=== PATIENT | female | born 2000 | race Caucasian/White ===

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

== ENCOUNTER 2019-07-20 00:40 | Emergency (ER) | payer MEDICAID, SELFPAY ==
[2019-07-20 00:42] VITALS: BP 124/69; PULSE 63; RESP 18; TEMP 36.1; O2SAT 97; BMI 35.3
[2019-07-20 01:14] LABS: Mucous, Urine 0 SEEN /hpf (<or=2+); Red Blood Cells-Urine 0 SEEN /hpf (0-5)
[2019-07-20 01:18] LABS: Color, Urine Yellow (Yellow); Glucose, Dipstick Normal (Normal); Ketone-Dipstick Negative (Negative); Leukocyte Esterase-Dipstick 500 /ul (Negative); Nitrite-Dipstick Negative (Negative); Occult Blood-Urine Negative /ul (Negative); Protein-Dipstick Negative (Negative); Urine Bilirubin Dipstick Negative (Negative); Urine Clarity Sl. Cloudy (Clear); Urine Urobilinogen Normal (Normal); Urine pH 6.5 (5.0 - 8.0)
[2019-07-20 01:22] LABS: Internal QC Validated? YES +Cl - CLEAR BKGD; Pregnancy, Urine Positive Negative
[2019-07-20 01:29] LABS: Bacteria RARE /hpf (None Seen); Squamous Epithelial Cells - UA 10-25 SEEN /hpf (5-10); White Blood Cells 0-5 SEEN /hpf (0-5)
--- NOTE | 2019-07-20 01:34 | ED.VIS.GEN ---
History of Present Illness Chief Complaint: Abd Pain Informant: Patient Onset: Today Context: Sudden Onset Timing: Continuous Narrative: She is a 19-year-old female G1, P0 presenting with right upper quadrant abdominal pain. Patient states earlier today she excellently hit herself with a doorknob in her right upper quadrant. Since then she is had pain in that area. Patient recently found out she was a couple days ago through a positive home test. She does not have an ENVIRONMENTAL PROJECT MANAGER yet. She states she wanted to be evaluated further for the pain was also concerned about the viability of her . She denies any lower abdominal pain. She denies any vaginal bleeding. She denies any vomiting but does endorse nausea however that been going on for the past 2 weeks. She denies any other complaints at this time. Past Medical History - Allergies and Home Meds Allergies/Adverse Reactions: Allergies morphine Allergy (Verified 07/20/19 00:47) Rash ibuprofen Adverse Reaction (Verified 07/20/19 00:47) Nausea/Vom/Diarrhea Primary Care Physician: Courtney Belle MD [STAFF PHYSICIAN] - Caty Cardona DO [Primary Care Provider] - Past Medical History: None Surgical History: tonsillectomy Lives: With Family Smoking Status: Current every day smoker - Family History Maternal Family History: Reports: Cancer - Kidney cancer Review of Systems All systems negative except as indicated Gastrointestinal: Reports: Abdominal pain, Nausea Physical Exam Vital Signs/Narrative: Vital Signs Temp Pulse Resp BP Pulse Ox 07/20/19 00:42 97 F L 63 18 124/69 H 97 Inital Vital Signs reviewed: Yes General: Well nourished, Well developed, No Acute Distress Head: Normocephalic, Atraumatic Eyes: Perrl, EOMI ENT: Moist mucous membranes, No rhinorrhea Neck: Supple, Nontender Cardiovascular: Regular rate, Regular rhythm, No murmurs Respiratory: No distress, CTA bilaterally, Chest nontender Abdomen: Soft, Nondistended, Normal bowel sounds, Tender - Mild, right upper quadrant, - - No palpable uterus. Negative for: Guarding, Rebound tenderness Back: Nontender, Normal Inspection. Negative for: CVA tenderness Extremities: Nontender, No edema Skin: Normal color, No rash Neurological: Alert, Oriented x3, Cranial nerves II-XII grossly intact, Normal Strength, Normal Sensation Psychological: Normal affect, Normal Mood Diagnostic/Tx/Re-eval Laboratory Data 07/20/19 07/20/19 07/20/19 01:10 01:10 01:40 WBC 11.2 H RBC 4.15 L Hgb 12.7 Hct 37.3 MCV 89.9 MCH 30.6 MCHC 34.0 RDW Std Deviation 43.4 RDW Coeff of Melanie 13.2 Plt Count 320 MPV 9.3 Immature Gran % (Auto) 0.400 Neut % (Auto) 59.9 Lymph % (Auto) 32.8 [place] % (Auto) 5.0 Eos % (Auto) 1.3 Baso % (Auto) 0.6 Absolute Neuts (auto) 6.7 Absolute Lymphs (auto) 3.66 Nucleated RBC % 0 Sodium Potassium Chloride Carbon Dioxide Anion Gap BUN Creatinine Estim Creat Clear Calc Est GFR (MDRD) Af Amer Est GFR (MDRD) Non-Af BUN/Creatinine Ratio Glucose Calcium Total Bilirubin AST ALT Alkaline Phosphatase Total Protein Albumin Globulin Albumin/Globulin Ratio Lipase Urine Color Yellow Urine Clarity Sl. Cloudy Urine pH 6.5 Ur Specific [place] 1.030 Urine Protein Negative Urine Glucose (UA) Normal Urine Ketones Negative Urine Occult Blood Negative Urine Nitrite Negative Urine Bilirubin Negative Urine Urobilinogen Normal Ur Leukocyte Esterase 500 H Urine RBC 0 SEEN Urine WBC 0-5 SEEN Ur Squamous Epith Cells 10-25 SEEN Urine Bacteria RARE Urine Mucus 0 SEEN Urine Test Positive H 07/20/19 01:40 WBC RBC Hgb Hct MCV MCH MCHC RDW Std Deviation RDW Coeff of Melanie Plt Count MPV Immature Gran % (Auto) Neut % (Auto) Lymph % (Auto) [place] % (Auto) Eos % (Auto) Baso % (Auto) Absolute Neuts (auto) Absolute Lymphs (auto) Nucleated RBC % Sodium 137 Potassium 3.9 Chloride 109 H Carbon Dioxide 20.0 L Anion Gap 8 BUN 10 Creatinine 0.50 L Estim Creat Clear Calc 168.02 Est GFR (MDRD) Af Amer 201 Est GFR (MDRD) Non-Af 166 BUN/Creatinine Ratio 19.9 Glucose 89 Calcium 8.6 Total Bilirubin 0.20 AST 15 ALT 19 Alkaline Phosphatase 53 Total Protein 6.7 Albumin 3.2 Globulin 3.5 Albumin/Globulin Ratio 0.9 Lipase 67 L Urine Color Urine Clarity Urine pH Ur Specific [place] Urine Protein Urine Glucose (UA) Urine Ketones Urine Occult Blood Urine Nitrite Urine Bilirubin Urine Urobilinogen Ur Leukocyte Esterase Urine RBC Urine WBC Ur Squamous Epith Cells Urine Bacteria Urine Mucus Urine Test - Medical Decision Making She is evaluated for right upper quadrant pain after hitting her abdomen on the door handle earlier today. She did not have any pain before this episode. She is concerned because she is also newly . Patient does not hope for a long she has but states her last menstrual. Was 2 months ago. Patient does not have any suprapubic or lower abdomen tenderness. I think it highly likely that she could have sustained any significant injury to her uterus from the described mechanism. The pain is not affected by eating and appears to be more muscle skeletal. There is no overlying hematoma or bruising. She does not have any vomiting or severe pain and I do not suspect hollow viscus injury. Lab work is relatively unremarkable. Patient's urine does have 500 leuk esterase however only rare bacteria and only minimal white blood cells. Urine culture sent but as patient is otherwise asymptomatic for urinary symptoms I will not start her on antibiotics at this time. Bedside ultrasound performed which shows a single intrauterine gestation with no free fluid. Heartbeat is noted but not measured. Dahlgren-rump length outputs estimated gestational age at 8 weeks 0 days which is consistent with patient's dates. Patient will be prescribed vitamins. She is instructed take Tylenol as needed for pain. She is given a dose of Tylenol in the emergency room. She will be referred to ENVIRONMENTAL PROJECT MANAGER for further follow-up. She is counseled on signs symptoms requiring return to emergency room. She is counseled to stop smoking as she is and limit her caffeine intake. Patient is counseled on signs and symptoms requiring return to the emergency room. Patient verbalizes agreement and understand this plan. Patient discharged home in stable and improved condition. ED Disposition - Plan for ED Patient: Disposition: Home or Assisted Living Diagnosis: RUQ abdominal pain, Instructions: : Your First Trimester Changes, ABDOMINAL PAIN, Unknown Cause, (Female) Prescriptions: Pnv No.121/Iron/Folic Acid [ Multivitamin Tablet] 1 ea PO DAILY #30 tab Prescription Printed Referrals: Caty Cardona DO [Primary Care Provider] - Courtney Belle MD [STAFF PHYSICIAN] - Additional Instructions: Take Tylenol as needed for pain. Please follow-up with an ENVIRONMENTAL PROJECT MANAGER to establish care. Drink plenty of fluids. Return the emergency room if you have worsening symptoms.
[2019-07-20] MEDS: Acetaminophen 500 MG Tablet 1000 MG PO (01:42)
[2019-07-20 01:43] LABS: Absolute Lymphocyte Count 3.66 X10^3/uL (0.83-4.51); Absolute Neutrophil Count 6.7 X10^3/uL (2.0-7.7); Basophil# 0.07 X10^3/uL; Basophil% 0.6 % (0-1); Eosinophil# 0.15 X10^3/uL; Eosinophils% 1.3 % (0-5); Hematocrit 37.3 % (37-47); Hemoglobin 12.7 g/dL (12.0-15.0); Lymphocyte # 3.66 X10^3/ul (4.0); Lymphocyte % 32.8 % (19-41); Mean Corpuscular Hgb 30.6 pg (27.0-32.0); Mean Corpuscular Volume 89.9 fL (81-99); Mean Platelet Vol. 9.3 fl (6.2-12.0); Monocyte# 0.56 X10^3/uL; NRBC Flagged by Analyzer 0 % (0-5); Neutrophil # 6.66 X10^3/uL (2.7-7.7); Neutrophil % 59.9 % (47-70); Platelet Count 320 K/mm3 (150-450); RBC Distribution Width CV 13.2 % (11.6-14.6); RBC Distribution Width SD 43.4 fl (35.1-43.9); Red Blood Count 4.15 M/mm3 (4.2-5.4); White Blood Count 11.2 K/mm3 (4.4-11.0)
[2019-07-20 02:01] LABS: ALB/GLOB Ratio 0.9 RATIO (0.9-2.4); AST(SGOT) 15 U/L (15-37); Alanine Aminotransfer ALT/SGPT 19 U/L (13-56); Albumin, Serum 3.2 g/dL (3.2-5.0); Alkaline Phosphatase 53 U/L (45-117); Anion Gap 8 (5-15); BUN 10 mg/dL (7-18); BUN/Creat Ratio 19.9 RATIO (10-20); Calcium,Total 8.6 mg/dL (8.5-10.1); Chloride 109 mmol/L (98-107); EST Glomerular Filtration Rate 166 mL/min (>60); Est Glom Filt Rate - Afr Amer 201 mL/min (>60); Estimated Creatinine Clearance 168.02 ml/min; Globulin 3.5 g/dL (2.2-4.2); Glucose 89 mg/dL (74-106); Lipase 67 U/L (73-393); Potassium 3.9 mmol/L (3.5-5.1); Protein, Total 6.7 g/dL (6.4-8.2); Sodium Level 137 mmol/L (136-145)
[2019-07-20 03:21] VITALS: BP 119/81; PULSE 81; RESP 16; O2SAT 100
== END 2019-07-20 03:22 | disposition home or self-care (01) ==
PROVIDERS: Emergency Provider Emergency Medicine; Family Provider Family Medicine; PCP Family Medicine
DX: O26.899 Other specified pregnancy related conditions, unspecified trimester (principal); R10.11 Right upper quadrant pain; O99.331 Smoking (tobacco) complicating pregnancy, first trimester; Z3A.08 8 weeks gestation of pregnancy
CPT/HCPCS: 80053; 81001; 81025; 83690; 85025; 87086; 87088; 99285; A4216

== ENCOUNTER 2019-09-25 21:10 | Emergency (ER) | payer MEDICAID, SELFPAY ==
[2019-09-25 21:11] VITALS: BP 122/80; PULSE 75; RESP 23; TEMP 36.9; O2SAT 97; BMI 34.4
[2019-09-25 21:24] VITALS: BP 112/70; PULSE 67; RESP 15; O2SAT 95
--- NOTE | 2019-09-25 21:31 | EKG12_ITS ---
Test Reason : SYNCOPE Blood Pressure : / mmHG Vent. Rate : 069 BPM Atrial Rate : 069 BPM P-R Int : 154 ms QRS Dur : 084 ms QT Int : 368 ms P-R-T Axes : 021 043 023 degrees QTc Int : 394 ms Normal sinus rhythm with sinus arrhythmia Normal ECG Confirmed by FRANCISCO DORADO, JAS ([id number]), editor & co founder CHASTITY JOHNSON ([id number]) on 09/27/2019 10:07:02 AM Referred By: CRYSTAL Confirmed By:JAS SINGH MD
--- NOTE | 2019-09-25 21:32 | ED.DCSUM_ITS ---
History of Present Illness Chief Complaint: Syncope Informant: Patient, Family Onset: Today Narrative: Patient brought by EMS from [facility] with significant other reported syncopal episode while walking. Prodromal lightheaded symptoms. Patient 18-week , G1, P0. [facility] Last seen 5 days ago. States has a mild cough, nonproductive, no dyspnea. No vomiting or diarrhea. No urinary symptoms. Denies any vaginal bleeding. Denies any abdominal injury or pain. States she was lower down by her significant other. Reports had a syncopal episodes when she was younger. Patient does admit to tobacco history. Denies any alcohol or any illicit drug use. Prior similar symptoms: Yes Past Medical History - Allergies and Home Meds Allergies/Adverse Reactions: Allergies morphine Allergy (Verified 09/25/19 21:11) Rash ibuprofen Adverse Reaction (Verified 09/25/19 21:11) Nausea/Vom/Diarrhea Primary Care Physician: Care Physician,No Primary [Primary Care Provider] - Surgical History: tonsillectomy Smoking Status: Current every day smoker - Family History Maternal Family History: Reports: Cancer - Kidney cancer Review of Systems General: Denies: Chills, Fever, Sweats Eyes: Denies: Visual changes - bilaterally, Diplopia ENT: Denies: Rhinorrhea, Sore throat Cardiovascular: Denies: Chest pain, Palpitations Respiratory: Reports: Cough. Denies: Dyspnea, Dyspnea on exertion Gastrointestinal: Denies: Abdominal pain, Nausea, Vomiting, Diarrhea, Melena, Hematochezia Genitourinary: Denies: Dysuria, Hematuria, Frequency Musculoskeletal: Denies: Back pain, Extremity Pain Skin: Denies: Rash, Wounds Neurological: Denies: Headache, Weakness, Numbness Physical Exam Vital Signs/Narrative: Vital Signs Temp Pulse Resp BP Pulse Ox 09/25/19 21:24 67 15 112/70 95 09/25/19 21:11 98.4 F 75 23 H 122/80 H 97 Inital Vital Signs reviewed: Yes General: Well nourished, Well developed, No Acute Distress Head: Normocephalic, Atraumatic Eyes: Perrl, EOMI ENT: Moist mucous membranes, No rhinorrhea Neck: Supple, Nontender Cardiovascular: Regular rate, Regular rhythm, No murmurs Respiratory: No distress, CTA bilaterally, Chest nontender Abdomen: Soft, Nontender, Nondistended, Normal bowel sounds Back: Nontender, Normal Inspection Extremities: Nontender, No edema Skin: Normal color, No rash Neurological: Alert, Oriented x3, Cranial nerves II-XII grossly intact, Normal Strength, Normal Sensation Psychological: Normal affect, Normal Mood Diagnostic/Tx/Re-eval Abnormal Lab Results 09/25/19 09/25/19 09/25/19 21:48 21:48 21:55 WBC 13.2 H RBC 3.80 L Hgb 11.5 L Hct 34.7 L MCV 91.3 MCH 30.3 MCHC 33.1 RDW Std Deviation 44.0 H RDW Coeff of Melanie 13.2 Plt Count 294 MPV 9.5 Immature Gran % (Auto) 0.600 Neut % (Auto) 71.1 H Lymph % (Auto) 23.1 [place] % (Auto) 3.8 Eos % (Auto) 1.1 Baso % (Auto) 0.3 Absolute Neuts (auto) 9.4 H Absolute Lymphs (auto) 3.06 Nucleated RBC % 0 Sodium 140 Potassium 3.9 Chloride 110 H Carbon Dioxide 24.0 Anion Gap 6 BUN 9 Creatinine 0.46 L Estim Creat Clear Calc 182.63 Est GFR (MDRD) Af Amer 223 Est GFR (MDRD) Non-Af 184 BUN/Creatinine Ratio 19.7 Glucose 89 Calcium 8.9 Urine Color Yellow Urine Clarity Cloudy Urine pH 6.0 Ur Specific [place] 1.025 Urine Protein 30 H Urine Glucose (UA) Normal Urine Ketones 5 H Urine Occult Blood Negative Urine Nitrite Negative Urine Bilirubin Negative Urine Urobilinogen Normal Ur Leukocyte Esterase 500 H Urine RBC 0 SEEN Urine WBC 5-10 SEEN Ur Squamous Epith Cells 5-10 SEEN Urine Bacteria 3+ Hyaline Casts 0-5 SEEN Coarse Granular Casts 0-5 SEEN Urine Mucus 0 SEEN - Medical Decision Making Bedside ultrasound noted significant movement. heart tone 150. Patient with no focal neurologic deficits. EKG sinus rhythm with no acute changes. Labs are obtained normal hemoglobin, electrolytes are normal. Urine noted leukocytes, white cells and bacteria however did note mild squamous cells. Culture sent, patient , therefore started on Macrobid for 5 days. She ambulating department with no return of symptoms. Also discussed tobacco cessation with the patient. Signs and symptom discussed return otherwise follow-up as an outpatient with her physicians. All questions answered. ED Disposition - Plan for ED Patient: Disposition: Home or Assisted Living Diagnosis: Syncope, Second trimester , UTI in Instructions: SYNCOPE, Unk Cause, Understanding Urinary Tract Infections (UTIs), Quitting Smoking During Prescriptions: Nitrofurantoin Macrocrystals [Macrobid] 100 mg PO Q12 #9 cap Transmission Status: Pending to [facility] [facility] Referrals: Care Physician,No Primary [Primary Care Provider] - Additional Instructions: Follow up with your doctor. FHT 150.
--- NOTE | 2019-09-25 21:41 | ED.RN ---
NO OLD EKGS IN MUSE
[2019-09-25 21:55] LABS: Absolute Lymphocyte Count 3.06 X10^3/uL (0.83-4.51); Absolute Neutrophil Count 9.4 X10^3/uL (2.0-7.7); Basophil# 0.04 X10^3/uL; Basophil% 0.3 % (0-1); Eosinophil# 0.15 X10^3/uL; Eosinophils% 1.1 % (0-5); Hematocrit 34.7 % (37-47); Hemoglobin 11.5 g/dL (12.0-15.0); Lymphocyte # 3.06 X10^3/ul (4.0); Lymphocyte % 23.1 % (19-41); Mean Corp Hgb Conc 33.1 g/dL (32-36); Mean Corpuscular Hgb 30.3 pg (27.0-32.0); Mean Corpuscular Volume 91.3 fL (81-99); Mean Platelet Vol. 9.5 fl (6.2-12.0); Monocyte% 3.8 % (0-10); NRBC Flagged by Analyzer 0 % (0-5); Neutrophil # 9.41 X10^3/uL (2.7-7.7); Neutrophil % 71.1 % (47-70); Platelet Count 294 K/mm3 (150-450); RBC Distribution Width CV 13.2 % (11.6-14.6); White Blood Count 13.2 K/mm3 (4.4-11.0)
[2019-09-25 22:00] LABS: Color, Urine Yellow (Yellow); Glucose, Dipstick Normal (Normal); Ketone-Dipstick 5 mg/dl (Negative); Leukocyte Esterase-Dipstick 500 /ul (Negative); Mucous, Urine 0 SEEN /hpf (<or=2+); Nitrite-Dipstick Negative (Negative); Occult Blood-Urine Negative /ul (Negative); Protein-Dipstick 30 mg/dl (Negative); Red Blood Cells-Urine 0 SEEN /hpf (0-5); Specific Gravity, Urine 1.025 (1.002-1.030); Urine Bilirubin Dipstick Negative (Negative); Urine Clarity Cloudy (Clear); Urine Urobilinogen Normal (Normal)
[2019-09-25 22:07] LABS: Anion Gap 6 (5-15); BUN 9 mg/dL (7-18); BUN/Creat Ratio 19.7 RATIO (10-20); Calcium,Total 8.9 mg/dL (8.5-10.1); Chloride 110 mmol/L (98-107); Creatinine, Serum 0.46 mg/dL (0.55-1.02); EST Glomerular Filtration Rate 184 mL/min (>60); Est Glom Filt Rate - Afr Amer 223 mL/min (>60); Estimated Creatinine Clearance 182.63 ml/min; Glucose 89 mg/dL (74-106); Potassium 3.9 mmol/L (3.5-5.1); Sodium Level 140 mmol/L (136-145)
[2019-09-25 22:13] LABS: Coarse Granular Cast 0-5 SEEN /lpf (0-5 /lpf)
[2019-09-25 22:14] LABS: Hyaline Cast 0-5 SEEN /lpf (0-5)
[2019-09-25 22:18] LABS: Squamous Epithelial Cells - UA 5-10 SEEN /hpf (5-10)
[2019-09-25 22:22] LABS: White Blood Cells 5-10 SEEN /hpf (0-5)
[2019-09-25 22:26] LABS: Bacteria 3+ /hpf (None Seen)
[2019-09-25] MEDS: Nitrofurantoin Macrocrystals 100 MG Capsule PO (22:51)
[2019-09-25 22:53] VITALS: RESP 16
== END 2019-09-25 22:54 | disposition home or self-care (01) ==
PROVIDERS: Emergency Provider Emergency Medicine
DX: O26.892 Other specified pregnancy related conditions, second trimester (principal); R55 Syncope and collapse; R05 Cough; O23.42 Unspecified infection of urinary tract in pregnancy, second trimester; O99.332 Smoking (tobacco) complicating pregnancy, second trimester; F17.200 Nicotine dependence, unspecified, uncomplicated; Z3A.18 18 weeks gestation of pregnancy
CPT/HCPCS: 80048; 81001; 85025; 87086; 87088; 93005; 99285

== ENCOUNTER 2019-11-15 22:15 | Emergency (ER) | payer MEDICAID, SELFPAY ==
[2019-11-15 22:16] VITALS: BP 123/73; PULSE 87; RESP 15; TEMP 35.9; O2SAT 97; BMI 36.3
--- NOTE | 2019-11-15 22:33 | ED.VIS.GEN ---
History of Present Illness Chief Complaint: Dental Informant: Patient Onset: Yesterday Current Severity: Mild Maximum Severity: Moderate Narrative: Patient presents with left-sided dental pain that started last evening. She does not know of any broken tooth. She states the left side of her face was swollen pretty large. She slept most the day today and swelling seems to be improved currently. She does report having foul taste in her mouth like pus draining. Patient is currently 25 weeks . Past Medical History - Allergies and Home Meds Allergies/Adverse Reactions: Allergies morphine Allergy (Verified 11/15/19 22:15) Rash ibuprofen Adverse Reaction (Verified 11/15/19 22:15) Nausea/Vom/Diarrhea Primary Care Physician: Care Physician,No Primary [Primary Care Provider] - Past Medical History: None Surgical History: tonsillectomy Smoking Status: Current every day smoker - Family History Maternal Family History: Reports: Cancer - Kidney cancer Review of Systems General: Denies: Chills, Fever Eyes: Denies: Visual changes - bilaterally ENT: Reports: - - Left-sided dental pain. Denies: Bilateral ear pain Cardiovascular: Denies: Chest pain Respiratory: Denies: Dyspnea Gastrointestinal: Denies: Abdominal pain, Nausea, Vomiting, Diarrhea Genitourinary: Denies: Dysuria Musculoskeletal: Denies: Extremity Pain Skin: Denies: Rash Neurological: Denies: Headache Physical Exam Vital Signs/Narrative: Vital Signs Temp Pulse Resp BP Pulse Ox 11/15/19 22:16 96.6 F L 87 15 123/73 H 97 Inital Vital Signs reviewed: Yes General: Well nourished, Well developed Head: Normocephalic ENT: Moist mucous membranes, - - Patient has reproducible tenderness over the molars of the left mandibular surface. No surrounding gum edema. She does have tenderness over the parotid gland but no focal tenderness. There is no submandibular fullness. Posterior pharynx exam is normal. Neck: Supple Cardiovascular: Regular rate, Regular rhythm Respiratory: No distress, CTA bilaterally Abdomen: Soft, Nontender Extremities: Nontender Skin: Normal color Neurological: Alert, Oriented x3 Psychological: Normal affect Diagnostic/Tx/Re-eval - Medical Decision Making Patient be treated with Tylenol and Pen-Vee K. Prescription for Vantin VK will be given to her. She is given a dental referral list. ED Disposition - Plan for ED Patient: Disposition: Home or Assisted Living Diagnosis: Odontalgia Instructions: Dental Pain Prescriptions: Penicillin V Potassium 500 mg PO 4X/DAY #40 tablet Additional Instructions: Dental list provided
[2019-11-15] MEDS: Penicillin Vk 250 MG Tablet 500 MG PO (23:00)
[2019-11-15] MEDS: Acetaminophen 500 MG Tablet 1000 MG PO (23:00)
== END 2019-11-15 23:04 | disposition home or self-care (01) ==
LOC: ED 22:52
PROVIDERS: Emergency Provider Emergency Medicine
DX: K08.89 Other specified disorders of teeth and supporting structures (principal); O99.332 Smoking (tobacco) complicating pregnancy, second trimester; Z3A.25 25 weeks gestation of pregnancy
CPT/HCPCS: 99283

== ENCOUNTER 2020-01-24 00:17 | Outpatient (CLI) | payer MEDICAID, SELFPAY ==
[2020-01-24 00:33] VITALS: BP 137/67; PULSE 95; TEMP 36.9; O2SAT 99
[2020-01-24 00:59] VITALS: BMI 37.5
--- NOTE | 2020-01-24 10:32 | OB.TRI.NOTE ---
History of Present Illness Was patient seen by the physician?: No Reason For Visit: R/O LABOR Date of Service: 01/24/20 Final SCAR: 02/25/20 Gestational age: 35 Weeks and 3 Days History of Present Illness: Patient presented & reports vaginal bleeding at home to RN. She reported intercourse about 24 hours prior. Allergies morphine Allergy (Verified 11/15/19 22:15) Rash ibuprofen Adverse Reaction (Verified 11/15/19 22:15) Nausea/Vom/Diarrhea Physical Exam Vitals: Vital Signs Temp Pulse BP Pulse Ox 98.5 F 95 137/67 H 99 01/24/20 00:33 01/24/20 00:33 01/24/20 00:33 01/24/20 00:33 NST - FHR Rate Baby A Baseline: 120 Variability:: Moderate Accelerations:: 15 x 15 Decelerations:: Variable NST Reactive:: Yes Uterine Activity:: quiet Impression/Plan Reactive NST for threatened PTL RN checked patient & reported no blood on glove & cervix was closed
== END 2020-01-24 01:26 | disposition home or self-care (01) ==
LOC: WPOUT 00:20 → OBT 00:20
PROVIDERS: Visit Provider Obstetrics & Gynecology
DX: O20.0 Threatened abortion (principal); Z3A.35 35 weeks gestation of pregnancy
CPT/HCPCS: 59025; 59050; 99218; G0378

== ENCOUNTER 2020-03-01 18:50 | Inpatient (IN) | payer MEDICAID, SELFPAY ==
[2020-03-01 19:41] VITALS: BMI 38.7
[2020-03-01] MEDS: Lactated Ringers 1,000 ML 50 ML IV (20:00)
[2020-03-01 20:14] VITALS: BP 125/75; PULSE 86
[2020-03-01 20:24] LABS: Basophil# 0.04 X10^3/uL; Basophil% 0.4 % (0-1); Eosinophil# 0.05 X10^3/uL; Eosinophils% 0.4 % (0-5); Hematocrit 33.5 % (37-47); Hemoglobin 10.9 g/dL (12.0-15.0); Lymphocyte % 23.6 % (19-41); Mean Corp Hgb Conc 32.5 g/dL (32-36); Mean Corpuscular Hgb 30.4 pg (27.0-32.0); Mean Corpuscular Volume 93.6 fL (81-99); Mean Platelet Vol. 9.8 fl (6.2-12.0); Monocyte# 0.57 X10^3/uL; NRBC Flagged by Analyzer 0 % (0-5); Neutrophil # 7.96 X10^3/uL (2.7-7.7); Neutrophil % 69.7 % (47-70); Platelet Count 389 K/mm3 (150-450); RBC Distribution Width CV 14.4 % (11.6-14.6); RBC Distribution Width SD 48.2 fl (35.1-43.9); Red Blood Count 3.58 M/mm3 (4.2-5.4); White Blood Count 11.4 K/mm3 (4.4-11.0)
[2020-03-01] MEDS: miSOPROStol 25 MCG TABLET PO (20:47)
[2020-03-01] MEDS: 0.9% Normal Saline Single 100 ML IV.SOLN. IY (20:49)
[2020-03-01 21:04] VITALS: BP 135/75; PULSE 97; TEMP 36.4; O2SAT 97
--- NOTE | 2020-03-01 21:18 | HP.PCM_ITS ---
- Problem List (1) Encounter for induction of labor Status: Acute (2) Obesity affecting Status: Acute (3) Marijuana use Status: Acute (4) Bipolar disease during Status: Acute (5) Tobacco use complicating Status: Acute History Date of Admission: 05/16/16 Final SCAR: 02/25/20 Gestational age: 40 Weeks and 5 Days History of this : This is a 19 year-old, G [1], P [0], at 40w5d gestational age for postdates ind uction of labor. complicated by history of marijuana use, that stopped after initial OB visit. Tobacco use in . Allergies morphine Allergy (Verified 03/01/20 19:42) Rash ibuprofen Adverse Reaction (Verified 03/01/20 19:42) Nausea/Vom/Diarrhea Home Medications: Home Medications Pnv No.121/Iron/Folic Acid [ Multivitamin Tablet] 1 ea PO DAILY #30 tab 07/20/19 Doxylamine Succinate [Nighttime Sleep-Aid] 25 mg PO QHS 01/24/20 Pyridoxine HCl (Vitamin B6) [Vitamin B-6] 25 mg PO DAILY 01/24/20 Smoking Status: Current every day smoker Alcohol: None Substance Use Type: Marijuana - beginning of , no further use Number of Fetus(es): 1 NST - FHR Rate Baby A Baseline: 135 Variability:: Moderate Accelerations:: 15 x 15 Decelerations:: None NST Reactive:: Yes FHR Category:: Category I Uterine Activity:: None History Past Pregnancies: Past Pregnancies Delivery Date Name GA/ Weeks Outcome Route Wt Infant Sex Labor Length Anesthesia Delivery Location Provider FOB Labs: Mom's Problem List Problem Status Onset Code Encounter for induction of labor Acute Z34.90 Obesity affecting Acute O99.210 Marijuana use Acute F12.90 Bipolar disease during Acute O99.340, F31.9 Tobacco use complicating Acute O99.330 Mom's Labs & Results 03/01/20 03/01/20 03/01/20 19:55 20:00 20:00 WBC 11.4 H RBC 3.58 L Hgb 10.9 L Hct 33.5 L MCV 93.6 MCH 30.4 MCHC 32.5 RDW Std Deviation 48.2 H RDW Coeff of Melanie 14.4 Plt Count 389 MPV 9.8 Immature Gran % (Auto) 0.900 Neut % (Auto) 69.7 Lymph % (Auto) 23.6 [place] % (Auto) 5.0 Eos % (Auto) 0.4 Baso % (Auto) 0.4 Absolute Neuts (auto) 8.0 H Absolute Lymphs (auto) 2.70 Nucleated RBC % 0 COVID-19 ([facility]) Pending Blood Type Pending Antibody Screen Pending Course Did the patient receive Yes care? Labs Blood Type: A RH: POSITIVE RPR/VDRL/Syphilis Nonreactive Rubella status Immune HbSAg Negative Date Done: 08/04/19 Chlamydia Negative Gonorrhea Negative HIV/AIDS Non-Reactive Group B Strep: Negative Current Obstetrical History Gestational Diabetes No Incompetent Cervix No Infertility No IUGR No Macrosomia No Hypertension/Pre-eclampsia No Placenta Previa/Abruption No PTL/PROM No Uterine anomaly No Oligohydramnios No Polyhydramnios No Multiple gestation No Past Medical History Asthma No Diabetes No Hypertension No Heart disease No Mitral valve prolapse No Neurologic/Seizure disorder/ No Migraines Kidney disease No Liver disease No Varicosities No Clotting disorders/Hx of DVT No Thyroid Dysfunction No Other medical diseases No Psychiatric disorders Yes: anxiety Major trauma No Abnormal PAP smear No Sleep apnea No Mammogram in the last 2 years No Social History Marital Status: SINGLE Alleged father Brad Hx Smoking Yes Smoking Status Light Smoker (<10/day) Substance Use Type Marijuana What date/time did you last Novemeber use any of the above? Expected Delivery Method: Spontaneous Vaginal Review of Systems Constitutional: Denies: Chills, Fever, Weight Change Eyes: Denies: Blurred vision HEENT: Denies: Head Aches, Sinus Congestion, Sinus Drainage Cardiovascular: Denies: Chest Pain, Palpitations Respiratory: Denies: Cough, Shortness of breath at rest, Sputum production Gastrointestinal: Denies: Abdominal Pain, Nausea, Vomiting Genitourinary: Denies: Dysuria Musculoskeletal: Denies: Joint Pain, Joint Tenderness Skin: Denies: Rash, Wounds Neurological: Denies: Numbness, Tingling, Focal weakness Psychiatric: Denies: Anxiety, Depression, Homicidal Ideations, Suicidal Ideations Hematologic/ Lymphatic: Denies: Easy Bruising, Easy Bleeding Physical Exam Vitals: Vital Signs Temp Pulse BP Pulse Ox 97.5 F L 97 135/75 H 97 03/01/20 21:04 03/01/20 21:04 03/01/20 21:04 03/01/20 21:04 General: Alert, Oriented x3, No apparent distress HEENT: Atraumatic, Normocephalic Cardiovascular: Regular rate, Regular Rhythm, No murmurs Lungs: Clear to auscultation, Normal air movement, No rhonchi, No wheeze Abdomen: Bowel Sounds Present, Gravid Extremities:: No edema Neurological: Deep Tendon Reflexes 2+/4 and Symmetrical. Negative for: Clonus WELDING MACHINE SETTER: Normal external genitalia Estimated gestational size: Appropriate for gestational size Presentation: Cephalic Cervix Dilation (cm): 1.5 - Antonio catheter inserted transcervically and instilled with 30ml NS. Patient tolerated well. Station: -2 Effacement (%): 60 Assessment/Plan All Active Problems Encounter for induction of labor (Acute) Obesity affecting (Acute) Marijuana use (Acute) Bipolar disease during (Acute) Tobacco use complicating (Acute) Appendicitis (Acute) This is a 19 year-old, G [1], P [0], at 40w5d gestational age. A:Postdates induction of labor Category 1 FHR P: 1) Admit to labor and delivery 2) Routine labs, saline lock, continuous monitoring 3) Antonio with PO cytotec for cervical ripening 4) Pitocin after antonio falls out 5) Urine tox screen for marijuana use in . History of Bipolar Disorder. psychiatric social worker supervisor consultation. 6) Requesting LARC-Mirena immediate PP 7) notified of admission and collaborative physician
[2020-03-01 22:16] LABS: Amphetamine Urine VISTA NEGATIVE (<1000 ng/mL); Barbiturate Urine VISTA NEGATIVE (< 200 ng/mL); Benzodiazepine Urine VISTA NEGATIVE (< 200 ng/mL); Cocaine Urine VISTA NEGATIVE (< 300 ng/mL); Ecstacy Urine VISTA NEGATIVE (< 500 ng/mL); Methadone Urine VISTA NEGATIVE (< 300 ng/mL); PCP Urine VISTA NEGATIVE (< 25 ng/mL); THC Urine VISTA NEGATIVE (< 50 ng/mL); Vista UDS pH Range 6
[2020-03-01 22:36] VITALS: BP 124/75; PULSE 88; PULSE 93; TEMP 36.3; O2SAT 99
[2020-03-02] VITALS (59 sets, daily range): BP systolic 105–165; BP diastolic 56–102; PULSE 8–121; RESP 16; TEMP 36.2–37.2; O2SAT 83–99
[2020-03-02] MEDS: Oxytocin 30 units/NS 500 ml 30 UNITS/500 ML IV.SOLN IV (01:03)
[2020-03-02] MEDS: Lactated Ringers 500 ML 999 ML IV ×2 (08:04→16:15)
--- NOTE | 2020-03-02 08:20 | PN.OBGYN_ITS ---
Patient Problems: Active and Suspected Problems Encounter for induction of labor (Acute) Obesity affecting (Acute) Marijuana use (Acute) Bipolar disease during (Acute) Tobacco use complicating (Acute) Subjective: Patient seen at bedside. Denies any pain at this time. Waiting on epidural placement before wants A.R.O.M. Discussed placement of Mirena at delivery. Patient may wait until 6 week pp visit. Objective: Pitocin 16mu/min - Physical Exam Vitals/I&O's: Vital Signs Temp Pulse BP Pulse Ox 97.5 F L 76 134/81 H 98 03/02/20 07:38 03/02/20 07:39 03/02/20 07:38 03/02/20 07:39 Weight: 240 lb Body Mass Index (BMI) 38.7 Intake and Output for Last 24 Hours 02/29/20 03/01/20 03/02/20 23:59 23:59 23:59 Intake Total 75 / 75 998.66 / 998.66 Output Total 200 / 200 Balance 75 / 75 798.66 / 798.66 General: Alert HEENT: Atraumatic Oral: Moist Mucosa Lungs: Normal air movement Cardiovascular: Regular rate Abdomen: Gravid Extremities: Capillary Refill Less than 3 Seconds, No Calf Tenderness Skin: No rashes Neurological: Cranial nerves II-XII grossly intact Psych/Mental Status: Flat Affect Laboratory Results 03/01/20 19:55: COVID-19 ([facility]) Not Detected 03/01/20 20:00: WBC 11.4 H, RBC 3.58 L, Hgb 10.9 L, Hct 33.5 L, MCV 93.6, MCH 30.4, MCHC 32.5, RDW Std Deviation 48.2 H, RDW Coeff of Melanie 14.4, Plt Count 389, MPV 9.8, Immature Gran % (Auto) 0.900, Neut % (Auto) 69.7, Lymph % (Auto) 23.6, [place] % (Auto) 5.0, Eos % (Auto) 0.4, Baso % (Auto) 0.4, Absolute Neuts (auto) 8.0 H, Absolute Lymphs (auto) 2.70, Nucleated RBC % 0 03/01/20 20:00: Blood Type A POSITIVE, Antibody Screen NEGATIVE 03/01/20 21:00: Urine Opiates Screen NEGATIVE, Urine Methadone Screen NEGATIVE, Ur Barbiturates Screen NEGATIVE, Ur Phencyclidine Scrn NEGATIVE, Ur Amphetamines Screen NEGATIVE, U Methamphetamin-MDMA NEGATIVE, U Benzodiazepines Scrn NEGATIVE, Urine Cocaine Screen NEGATIVE, U Cannabinoids Screen NEGATIVE, Ur Drug Screen Comment Current Medications Acetaminophen (Tylenol) 325 - 650 mg PO Q4H PRN PRN PRN Reason: Pain Score 1-3/10 Al Hydroxide/Mg Hydroxide (Mylanta Ii) 15 - 30 ml PO Q4H PRN PRN PRN Reason: INDIGESTION Citric Acid/Sodium Citrate (Bicitra) 30 ml PO X1 PRN PRN Reason: Section Ephedrine Sulfate () 10 mg IV Q10M PRN PRN Reason: hypotension Ephedrine Sulfate () 10 mg IM Q30M PRN PRN Reason: hypotension Fentanyl Citrate (Sublimaze (100mcg Ampule)) 25 - 50 mcg IV Q2H PRN PRN PRN Reason: Pain Score 4-10/10 Fentanyl/Bupivacaine/Sodium Chlor () 0 ml EPIDURAL UD [facility], [facility]; Protocol Lactated Ringer's () 500 mls @ 999 mls/hr IV .Q31M PRN PRN Reason: Epidural Last Admin: 03/02/20 08:04 Dose: 999 mls/hr Documented by: Lactated Ringer's () 500 mls @ 999 mls/hr IV .Q31M PRN PRN Reason: Corrective Measures Lactated Ringer's () 1,000 mls @ 50 mls/hr IV .Q20H [facility] Last Infusion: 03/02/20 08:04 Dose: 0 mls/hr Documented by: Oxytocin/Sodium Chloride () 30 units in 500 mls @ 2 mls/hr IV .Q250H [facility] Last Infusion: 03/02/20 06:15 Dose: 16 mls/hr Documented by: Naloxone HCl 4 mg/ Dextrose 504 mls @ 0 mls/hr IV .Q0M PRN; Protocol PRN Reason: To maintain Resp. rate >10 Nalbuphine HCl (Nubain) 5 mg IV Q3H PRN PRN PRN Reason: ITCHING Naloxone HCl (Narcan) 0.02 mg IV Q1M PRN PRN Reason: RR< 10 AND PT UNRESPONSIVE Ondansetron HCl (Zofran) 4 mg IV Q4H PRN PRN PRN Reason: NAUSEA Prochlorperazine Edisylate (Compazine Iv) 10 mg IV Q6H PRN PRN PRN Reason: NAUSEA Sodium Chloride () 10 - 40 ml IV X1 PRN PRN Reason: SALINE FLUSH Medical Necessity - Tobacco Use Smoking Status: Light Smoker (<10/day) Assessment/Plan All Active Problems Encounter for induction of labor (Acute) Obesity affecting (Acute) Marijuana use (Acute) Bipolar disease during (Acute) Tobacco use complicating (Acute) Appendicitis (Acute) Continue Pitocin IV and titrate per policy Epidural when indicated A.R.O.M after epidural placement per patient request Anticipate
[2020-03-02] MEDS: Ondansetron 4 MG/2 ML Vial IV ×2 (09:12→16:34)
[2020-03-02] MEDS: 0.9% Saline Lock 10 ML Syringe IV ×2 (09:17→16:34)
[2020-03-02] MEDS: fentaNYL-bupivacaine (epidural) 100 ML BAG EPIDURAL ×2 (09:18→13:24)
[2020-03-02] MEDS: Lactated Ringers 1,000 ML 100 ML IV (12:21)
--- NOTE | 2020-03-02 12:56 | PCM.PN.BLA ---
Progress Note Patient seen at bedside. Resting well with epidural placement. Denies any pain or feelings of contractions. Pitocin at 20 mu/min Category 1 tracing Irregular contractions, palpate mild CE-5/80/-1 A/P Continue current plan of care Continue to titrate Pitocin as protocol IUPC and FSE placed Anticipate STROKE Vital Signs/Narrative: Vital Signs Temp Pulse BP Pulse Ox 03/02/20 12:15 76 106/61 03/02/20 12:14 97.5 F L 73 97 03/02/20 10:44 98.3 F 85 110/63 98 03/02/20 09:37 83 123/81 H 03/02/20 09:35 80 98 03/02/20 09:32 79 115/80 03/02/20 09:31 94 91 03/02/20 09:30 93 98 03/02/20 09:26 102 H 110/56 L 03/02/20 09:25 93 97 03/02/20 09:21 97.2 F L 93 111/66 03/02/20 09:20 98 03/02/20 09:17 113 H 106/63 03/02/20 09:15 110 H 99 03/02/20 09:10 103 H 99 03/02/20 09:05 97 99 03/02/20 09:00 92 99
[2020-03-02] MEDS: Amnioinfusion- 0.9% NS 1,000 ML IV.SOLN. 250 ML INTRA-UTER (16:02)
[2020-03-02] MEDS: Oxytocin 30 units/NS 500 ml 30 UNITS/500 ML IV.SOLN 334 UNITS IV (17:48)
--- NOTE | 2020-03-02 17:58 | PCM.PN.BLA ---
Progress Note I was present on the unit for the delivery. Patient had maternal exhaustion with poor maternal pushing efforts. Head was on the perineum and deep decelerations down to 60 bpm with contractions and pushing. Patient then father the baby were counseled on vacuum use and consented-risks of vacuum including but not limited to scalp laceration, intracranial bleed, hematoma, vaginal lacerations reviewed. Ballesteros catheter in place bladder draining appropriately. The Kiwi vacuum was applied at the flexion point was in the LEIGHTON position. The Kiwi was then placed on suction at 550 mmHg 1 pop-off and 2 pulls the infant's head delivered. The delivery was then turned back over to NANCY Candelaria. Please see operative note for delivery summary. STROKE Vital Signs/Narrative: Vital Signs Temp Pulse BP Pulse Ox 03/02/20 16:55 98.4 F 03/02/20 16:18 96 119/63 03/02/20 15:44 94 110/61 03/02/20 15:35 97.5 F L 84 105/65 99 03/02/20 14:28 98.4 F 83 106/58 L 98
--- NOTE | 2020-03-02 18:04 | PCM.OPRPT ---
Problem List (1) Vacuum-assisted vaginal delivery Status: Acute Report of Operation Date of Procedure: 03/02/20 Pre-Operative Diagnosis: Induction of labor, Term gestation Post-Operative Diagnosis: Same, live female Vaginal Delivery Maternal Presentation: Medically Indicated Induction - Post dates Method of Induction: Pitocin, Ballesteros Bulb, Amniotomy, Cytotec Medical Reason for Induction: Post term Amniotic Membrane Rupture Type: Artificial Amniotic Fluid Description: Clear Final SCAR: 02/25/20 Gestational age: 40 Weeks and 6 Days Date of Procedure: 03/02/20 Pre-Operative Diagnosis: Induction of labor, Term gestation, Obesity, Post-Operative Diagnosis: Same, live female Surgery/ Procedure Performed: Vacuum Assisted Vaginal Delivery - Dr. Vasquez assisted delivery of head with vacuum and Johanna Candelaria, took over and completed delivery of infant and placenta Type of Anesthesia: Epidural Description of Procedure: Patient complete and pushing with poor maternal efforts. Pushing while using side hand rails as well as holding legs. Category 2 tracing during pushing with deep variables. Dr. Vasquez present at bedside and decision made for vacuum assistance with delivery of head ( see progress note) After delivery of head, I took over. Head delivered in LEIGHTON position with tight nuchal cord. Gentle downward traction with delivery of the anterior shoulder followed by the rest of infant's body delivered in somersault maneuver. Cord and clamped. Infant taken to warmer for evaluation and cared for by nursing staff. Placenta delivered spontaneously and intact without difficulty. Small vaginal and right labial laceration repaired with 3-0 Vicryl using a figure 8 fashion. Hemostasis present. Presentation: LEIGHTON Placental Delivery Description: Spontaneous Placenta Disposition: [facility] Cord Vessel Description: 3 Vessels Nuchal Cord Compression: With compression - Delivered through cord via somersault manuver Cord Entanglement: Around neck x 1, tight Estimated Blood Loss: 250 A gender: Male Episiotomy Description: None Laceration: Vaginal Extension/lac, 1st degree - Small vaginal laceration and small right labial laceration Medications given after delivery: IV Pitocin
[2020-03-02] MEDS: Naproxen 250 MG Tablet 500 MG PO (23:12)
--- NOTE | 2020-03-02 23:45 | NURSING ---
First degree rt labial laceration.
[2020-03-03] VITALS (7 sets, daily range): BP systolic 104–118; BP diastolic 52–77; PULSE 70–83; RESP 16–18; TEMP 36.2–36.6; O2SAT 96–97
[2020-03-03] MEDS: Acetaminophen 500 MG Tablet 1000 MG PO (01:04)
--- NOTE | 2020-03-03 03:25 | NURSING ---
First degree rt labial laceration.
--- NOTE | 2020-03-03 04:45 | NURSING ---
Pt tearful when RN entered room, stated infant has been awake since her last feeding and won't sleep. Encouragement and teaching provided to pt and significant other. Pt states she is unsure about because she is in pain and is wanting to eat frequently. Lansinoh cream at bedside. Explained to pt that it is her choice but educated on cluster feeding and using lansinoh cream after feedings. Pt choosing to continue at this time. Told pt to call when next feeding for RN assistance with latch. Pt verbalizes understanding and is no longer tearful when RN leaving room.
[2020-03-03] MEDS: Naproxen 250 MG Tablet 500 MG PO (06:42)
--- NOTE | 2020-03-03 08:31 | PCM.PN.OB ---
Patient Problems: Active and Suspected Problems Encounter for induction of labor (Acute) Obesity affecting (Acute) Marijuana use (Acute) Bipolar disease during (Acute) Tobacco use complicating (Acute) Vacuum-assisted vaginal delivery (Acute) Subjective: Patient seen at bedside. Resting quietly. Pain is controlled. . Ambulating and voiding without difficulty. Patient desires discharge home today. - Physical Exam Vitals/I&O's: Vital Signs Temp Pulse Resp BP Pulse Ox 97.1 F L 83 18 113/77 97 03/03/20 03:17 03/03/20 03:18 03/03/20 03:17 03/03/20 03:18 03/03/20 03:17 Oxygen Delivery Method Room Air Weight: 240 lb Body Mass Index (BMI) 38.7 Intake and Output for Last 24 Hours 03/01/20 03/02/20 03/03/20 23:59 23:59 23:59 Intake Total 75 / 75 4420.86 / 4420.86 Output Total 2250 / 2250 500 / 500 Balance 75 / 75 2170.86 / 2170.86 -500 / -500 General: Alert, Oriented x3, Cooperative Lungs: Normal air movement Cardiovascular: Regular rate Abdomen: Bowel Sounds Present, Soft, Non Tender Extremities: No Calf Tenderness Neurological: Cranial nerves II-XII grossly intact Psych/Mental Status: Normal Affect, Appropriate - Fundus Firm at U, lochia decreasing Current Medications Acetaminophen (Tylenol) 1,000 mg PO Q8H PRN PRN PRN Reason: Pain Score 1-10/10 Last Admin: 03/03/20 01:04 Dose: 1,000 mg Documented by: Bisacodyl (Dulcolax) 10 mg RECTAL UD PRN PRN Reason: If no BM Dibucaine (Dibucaine) 1 applic TOPICAL TID PRN PRN; Protocol PRN Reason: Discomfort Hydrocortisone (Hytone) 1 applic TOPICAL TID PRN PRN; Protocol PRN Reason: Discomfort Methylergonovine Maleate (Methergine) 0.2 mg IM X1 PRN PRN Reason: Excess bleeding/uterine atony Naproxen (Naprosyn) 500 mg PO Q8H PRN PRN PRN Reason: Pain Score 1-10/10 Last Admin: 03/03/20 06:42 Dose: 500 mg Documented by: Ondansetron HCl (Zofran) 4 mg IV Q4H PRN PRN PRN Reason: Nausea Senna/Docusate Sodium (Senokot-S, Adwoa-Colace) 1 - 2 tablet PO DAILY PRN PRN PRN Reason: Constipation Simethicone (Mylicon) 80 mg PO PCHS PRN PRN Reason: Indigestion/Stomach pain Sodium Chloride () 5 - 15 ml IV UD PRN PRN Reason: SALINE FLUSH Medical Necessity - Tobacco Use Smoking Status: Light Smoker (<10/day) Assessment/Plan All Active Problems Encounter for induction of labor (Acute) Obesity affecting (Acute) Marijuana use (Acute) Bipolar disease during (Acute) Tobacco use complicating (Acute) Vacuum-assisted vaginal delivery (Acute) Appendicitis (Acute) A/P PPD #1 Pain management Routine care Discharge home later today Follow up in 2 weeks
--- NOTE | 2020-03-03 08:50 | DCINST_ITS ---
Discharge Diet: No Restrictions Discharge Activity: No Restrictions May resume sexual activity in: 6-8 weeks Additional Instructions: If you experience any of the following, contact your healthcare provider. * Bleeding that soaks a pad every hour for 2 hours * Fever 100.4 or higher * Unrelieved incision or abdominal pain * Swelling, redness, discharge or bleeding from your incision or episiotomy site * Your incision begins to separate * Problems urinating (including inability to urinate or burning while urinating). * Visual changes * Severe headache * Flu-like symptoms * Pain or redness in one of both of your breasts * Pain, warmth, tenderness or swelling in your legs, especially the calf area * Frequent nausea and vomiting * Symptoms of depression or anxiety If you experience any of the following, call 911 or go to the nearest Emergency Room. * Chest pain * Problems breathing * Seizure activity * Partial or complete paralysis of a body part, slurred speech, weakness or drooping of the face, or a sudden inability to walk or hold your balance Allergies/Adverse Reactions: Allergies morphine Allergy (Verified 03/01/20 19:42) Rash ibuprofen Adverse Reaction (Verified 03/01/20 19:42) Nausea/Vom/Diarrhea Medications to take at Discharge Pnv No.121/Iron/Folic Acid [ Multivitamin Tablet] 1 ea PO DAILY #30 tab 07/20/19 Doxylamine Succinate [Nighttime Sleep-Aid] 25 mg PO QHS 01/24/20 Pyridoxine HCl (Vitamin B6) [Vitamin B-6] 25 mg PO DAILY 01/24/20 Please Follow Up With: Lili Candelaria CNM When: 2 weeks virtual visit and 6 weeks in office Primary Care Physician: Care Physician,No Primary [Primary Care Provider] - Test Results: Test results from this visit will be discussed in further detail at your follow- up appointment, if applicable. Proposed Discharge Date: 03/03/20
--- NOTE | 2020-03-03 08:50 | PCM.DCVAG ---
Discharge Diet: No Restrictions Discharge Activity: No Restrictions May resume sexual activity in: 6-8 weeks Additional Instructions: If you experience any of the following, contact your healthcare provider. Bleeding that soaks a pad every hour for 2 hours Fever 100.4 or higher Unrelieved incision or abdominal pain Swelling, redness, discharge or bleeding from your incision or episiotomy site Your incision begins to separate Problems urinating (including inability to urinate or burning while urinating). Visual changes Severe headache Flu-like symptoms Pain or redness in one of both of your breasts Pain, warmth, tenderness or swelling in your legs, especially the calf area Frequent nausea and vomiting Symptoms of depression or anxiety If you experience any of the following, call 911 or go to the nearest Emergency Room. Chest pain Problems breathing Seizure activity Partial or complete paralysis of a body part, slurred speech, weakness or drooping of the face, or a sudden inability to walk or hold your balance Allergies/Adverse Reactions: Allergies morphine Allergy (Verified 03/01/20 19:42) Rash ibuprofen Adverse Reaction (Verified 03/01/20 19:42) Nausea/Vom/Diarrhea Medications to take at Discharge Pnv No.121/Iron/Folic Acid [ Multivitamin Tablet] 1 ea PO DAILY #30 tab 07/20/19 Doxylamine Succinate [Nighttime Sleep-Aid] 25 mg PO QHS 01/24/20 Pyridoxine HCl (Vitamin B6) [Vitamin B-6] 25 mg PO DAILY 01/24/20 Please Follow Up With: Lili Candelaria CNM When: 2 weeks virtual visit and 6 weeks in office Primary Care Physician: Care Physician,No Primary [Primary Care Provider] - Test Results: Test results from this visit will be discussed in further detail at your follow-up appointment, if applicable. Proposed Discharge Date: 03/03/20
--- NOTE | 2020-03-03 12:15 | CASEMGMT ---
Social Work Assessment Labor and Delivery Unit Date of Referral: 03/02/2020 Date of Intervention: 03/03/2020 Time of Intervention: 12:15P Reason for Referral: MENTAL HEALTH HISTORY-BIPOLAR DISORDER, USE OF THC- MOB STOPPED USE AFTER INITIAL OB VISIT. History obtained from: MEDICAL RECORD, MOTHER OF BABY (MOB) AND FATHER OF BABY (FOB) Household composition: MOB AND FOB- LUTHER MARTIN LIVE TOGETHER IN AN APARTMENT. Educational Status: MOB REPORTS FINISHED 11TH GRADE Financial Status: LIMITED, FOB WORKS PART-TIME Supplies: MOB AND FOB REPORT HAVE ALL NEEDS MET FOR BABY INCLUDING; DIAPERS, WIPES, CLOTHES, CRIB, CAR SEAT ETC. Childcare/Caregiver(s): MOB AND FOB WILL BE MAIN CARE GIVERS FOR BABY GIRL, ROSLYN MARTIN. Transportation: NO CONCERNS Programs/Agencies Involved: RANDI GARRISON-MOB REPORTS WILL CALL Thursday03/05/20 Children Services/Legal Issues: MOB DENIES ANY HISTORY WITH CHILDREN SERVICES. FOB REPORTS CHILDREN SERVICES INVOLVEMENT A CHILD. Behavioral Health Issues: Mental Health History: MOB REPORTS HISTORY OF BIPOLAR DISORDER. MOB STATES WAS PRESCRIBED MEDICATION AT ONE TIME, BUT DID NOT LIKE THE WAY IT MADE HER FEEL. MOB STATES ALSO FOLLOWED WITH COUNSELING AT [facility]. MOB STATES TO BE ?DOING WELL? AND DENIES ANY NEED FOR REFERRALS FOR MENTAL HEALTH. Substance Use History: MOB ADMITS TO PRIOR USE OF MARIJUANA. DISCUSSED POSITIVE THC SCREEN DURING INITIAL OB VISIT. MOB REPORTS TO HAVE STOPPED SMOKING MARIJUANA AFTER THAT APPOINTMENT AND HAS NO PLAN TO RETURN TO USE. FOB DENIES ANY HISTORY OF MENTAL HEALTH. FOB ADMITS TO PREVIOUS USE OF MARIJUANA, HOWEVER, DENIES ANY CURRENT USE OR PLAN TO RETURN TO USE OF MARIJUANA. MOB REPORTS IS A DAILY SMOKER AND DOES NOT SMOKE IN THE HOME. Family/Social Stressors: MOB REPORTS BABY IS CLUSTER FEEDING AND IT HAS BEEN PAINFUL AND SHE IS VERY TIRED. MOB WISHES TO CONTINUE WITH PLAN TO BREASTFEED AT THIS TIME. MUCH EMOTIONAL SUPPORT AND ENCOURAGEMENT PROVIDED. NURSE TO FOLLOW UP WITH MOB AND FOB PRIOR TO DISCHARGE. Support Systems: MOB AND FOB REPORT GOOD RELATIONSHIP AND SUPPORT FROM ONE ANOTHER. MOB REPORTS GOOD SUPPORT FROM BOTH OF THEIR FAMILIES. Depression/Shaken Baby/Safe Sleeping REVIEWED SIGNS/SYMPTOMS OF PPD AND PROVIDED EDUCATIONAL INFORMATION. REVIEWED SAFE SLEEPING AND SHAKEN BABY. NO QUESTIONS OR CONCERNS. EDUCATIONAL RESOURCES GIVEN. ASSESSMENT: MET WITH MOB AND FOB IN ROOM. MOB ASLEEP IN BED AND FOB HOLDING BABY UPON THIS WORKER ENTERING THE ROOM. INTRODUCED ROLE AND REASON FOR REFERRAL. MOB IN AGREEMENT TO COMPLETE ASSESSMENT AT THIS TIME. MOB OPENLY DISCUSSED MENTAL HEALTH HISTORY AND HISTORY OF MARIJUANA USE. MOB DENIES ANY NEEDS FOR REFERRALS FOR MENTAL HEALTH AT THIS TIME AND REPORTS TO BE DOING WELL. MOB ADMITS TO MARIJUANA USE EARLY ON IN AND STATES QUIT SMOKING AFTER INITIAL OB VISIT. MOB?S TOX SCREEN WAS NEGATIVE UPON ADMISSION. MOB REPORTS NO PLANS TO CONTINUE USING MARIJUANA IN THE FUTURE. MOB AND FOB REPORT TO BE BONDING WELL WITH BABY GIRLROSLYN. MOB STATES BABY HAS BEEN CLUSTER FEEDING AND THIS HAS BEEN PAINFUL. MOB REPORTS NURSE IS TO BE MEETING WITH MOB PRIOR TO DISCHARGE. MOB WISHES TO CONTINUE WITH PLAN FOR . DISCUSSED AGENCY INVOLVEMENT. MOB REPORTS HAS MEDICAID AND FOOD STAMPS THROUGH [employer]. MOB STATING TO BE CALLING [facility] ON THURSDAY TO SET UP APPOINTMENT. INFORMATION PROVIDED ON HELP ME GROW. MOB INTERESTED IN REFERRAL. INFORMED THIS WORKER WILL COMPLETE REFERRAL VIA ONLINE SECURE REFERRAL FORM. VERIFIED PHONE NUMBERS AND ADDRESS FOR MOB AND FOB. MOB CELL- [phone], FOB?S CELL- [phone]. ADDRESS: [address] [place] [address]. MOB REPORTS PLAN TO DISCHARGE THIS EVENING. DENIES ANY FURTHER NEEDS OR QUESTIONS AT THIS TIME. UPDATED NURSE ON THE ABOVE. VERIFIED NURSE TO FOLLOW UP PRIOR TO DISCHARGE. PLAN: HOME WITH RESOURCES PROVIDED, REFERRAL FOR HELP ME GROW No other services requested or indicated. -Faby Galindo, BEAD FORMING MACHINE SET UP OPERATOR, GAMING ASSOCIATE
--- NOTE | 2020-03-03 17:05 | CASEMGMT ---
SOCIAL WORK HELP ME GROW REFERRAL SUBMITTED VIA SECURE ONLINE REFERRAL SITE.
--- NOTE | 2020-03-05 14:44 | CASEMGMT ---
SOCIAL WORK REPORT MADE TO CHILDREN SERVICES REGARDING MOB'S MARIJUANA USE DURING . REPORT MADE TO VIOLETTA. AWAITING MECONIUM RESULTS. Sobia AYOUB, SOCIAL WORKER PSYCHIATRIC, BARKER OPERATOR.
--- NOTE | 2020-03-05 14:46 | CASEMGMT ---
SOCIAL WORK REPORT MADE TO CHILDREN SERVICES REGARDING USE OF MARIJUANA AT BEGINNING OF . MOB NEGATIVE UPON ADMISSION. REPORT MADE TO VIOLETTA WITH CHILDREN SERVICES. AWAITING MECONIUM RESULTS. Sobia AYOUB, PRECISION FARMING COORDINATOR, GROUND WATER CONTRACTOR.
== END 2020-03-03 18:50 | disposition home or self-care (01) | DRG 560 ==
PROVIDERS: Advanced Practice Midwife; Admitting Provider Obstetrics & Gynecology; Visit Provider Obstetrics & Gynecology
DX: O75.81 Maternal exhaustion complicating labor and delivery (principal); O76 Abnormality in fetal heart rate and rhythm complicating labor and delivery; E66.9 Obesity, unspecified; Z37.0 Single live birth; O99.214 Obesity complicating childbirth; O48.0 Post-term pregnancy; Z3A.40 40 weeks gestation of pregnancy; F17.200 Nicotine dependence, unspecified, uncomplicated; O99.334 Smoking (tobacco) complicating childbirth; O70.0 First degree perineal laceration during delivery; O69.1XX0 Labor and delivery complicated by cord around neck, with compression, not applicable or unspecified
CPT/HCPCS: 59025; 59050; 80307; 85025; 86850; 86900; 86901; 87635; 99218; G2023; J7030; J7120; A4216; G0378; J2405; U0003

== ENCOUNTER 2020-04-09 19:42 | Emergency (ER) | payer MEDICAID, SELFPAY ==
[2020-04-09 19:43] VITALS: BP 147/78; PULSE 81; RESP 16; TEMP 36.8; O2SAT 98; BMI 28.4
--- NOTE | 2020-04-09 21:27 | ED.RN ---
PATIENT STATES SHE CANNOT WAIT ANY LONGER, NEEDS TO GO TO WORK TONIGHT.
[2020-04-09 21:35] VITALS: RESP 16
== END 2020-04-09 21:35 | disposition left against medical advice (07) ==
LOC: ED 21:31
PROVIDERS: Emergency Provider Emergency Medicine
DX: Z53.21 Procedure and treatment not carried out due to patient leaving prior to being seen by health care provider (principal)

== ENCOUNTER 2020-10-09 10:16 | Emergency (ER) | payer MEDICAID, SELFPAY ==
[2020-10-09 10:16] VITALS: BP 152/126; PULSE 102; RESP 16; TEMP 36.4; O2SAT 96; BMI 29.0
--- NOTE | 2020-10-09 10:42 | ED.VISSUMM ---
- ER Visit Summary Date of Service: 10/09/20 Chief Complaint: Dental pain History of Present Illness: The patient is a 20 F presenting with right lower molar pain x2 days. She complains of swelling on that side of her face. She has tried Tylenol, ibuprofen at home. She does not currently have a dentist. Denies fever. Denies other complaints. Physical Examination: Vitals are stable. Patient is afebrile. Alert no acute distress. HEENT exam right lower molar tenderness to palpation. No surrounding fluctuance. No sublingual edema. Neck is supple. Lungs are clear and equal bilaterally. Heart is regular rate and rhythm. Extremities are unremarkable. Skin is warm and dry. Remainder of exam is unremarkable. Emergency Department Course and Treatment: Patient was given OxyIR x1. She is given prescription for Naprosyn and penicillin. She is given a dental referral list. Advised return to ED for worsening complaints. Disposition: Discharge home Impression: Odontalgia This note was generated with [employer] dictation software. It may contain incorrect words, spelling, and punctuation that were not noted in review of the chart prior to signing ED Disposition - Plan for ED Patient: Referrals: Care Physician,No Primary [Primary Care Provider] -
--- NOTE | 2020-10-09 10:44 | ED.DEP ---
ED Disposition - Plan for ED Patient: Instructions: ED Dental Pain Prescriptions: Naproxen [Naprosyn] 500 mg PO BID PRN #20 tab Prescription Printed Penicillin V Potassium 500 mg PO 4X/DAY #40 tab Prescription Printed Referrals: Care Physician,No Primary [Primary Care Provider] -
[2020-10-09] MEDS: oxyCODONE 5 MG Tablet PO (10:55)
[2020-10-09] MEDS: Penicillin Vk 250 MG Tablet 500 MG PO (10:55)
[2020-10-09 11:15] VITALS: BP 151/83; PULSE 69; RESP 16
--- NOTE | 2020-10-09 11:15 | ED.RN ---
DISCHARGE INSTRUCTIONS GIVEN TO AND REVIEWED WITH PATIENT, PATIENT DENIES QUESTIONS OR CONCERNS AND VOICES UNDERSTANDING OF DISCHARGE INSTRUCTIONS. PT AMBULATES OUT OF ROOM WITHOUT DIFFICULTY.
== END 2020-10-09 11:16 | disposition home or self-care (01) ==
LOC: ED 11:15
PROVIDERS: Emergency Provider Emergency Medicine
DX: K08.89 Other specified disorders of teeth and supporting structures (principal); F17.200 Nicotine dependence, unspecified, uncomplicated
CPT/HCPCS: 99283

== ENCOUNTER 2021-01-02 03:36 | Emergency (ER) | payer MEDICAID, SELFPAY ==
[2021-01-02 03:37] VITALS: BP 150/94; PULSE 106; RESP 18; TEMP 36.4; O2SAT 97; BMI 28.1
--- NOTE | 2021-01-02 03:45 | ED.VIS.GEN ---
History of Present Illness Chief Complaint: Abd Pain Informant: Patient Narrative: Patient stated she has had some suprapubic discomfort for the last week or 2. She describes a cramping. She has some mild vaginal bleeding. She has an IUD since last summer. She has had problems with the on and off with pain mainly with sex. No sex in the last 1 to 2 weeks. Called her WILDLIFE BIOSTATION RESEARCH ECOLOGIST has an appointment tomorrow. She denies any vaginal discharge. She felt like the strings were hanging out of her body a couple days ago but she is no longer seeing them. She had her boyfriend check her who could not feel the IUD. She came in for further evaluation of the IUD. - Past Medical History (1) Appendicitis Status: Acute (2) Bipolar disease during Status: Acute (3) Encounter for induction of labor Status: Acute (4) Marijuana use Status: Acute (5) Obesity affecting Status: Acute (6) Tobacco use complicating Status: Acute (7) Vacuum-assisted vaginal delivery Status: Acute Past Medical History - Allergies and Home Meds Allergies/Adverse Reactions: Allergies morphine Allergy (Verified 10/09/20 10:16) Rash ibuprofen Adverse Reaction (Verified 10/09/20 10:16) Nausea/Vom/Diarrhea Primary Care Physician: Caty Cardona DO [Primary Care Provider] - Prior records reviewed: Yes Past Medical History: - Surgical History: tonsillectomy Lives: With Family Smoking Status: Current every day smoker Alcohol: None Drugs: None - Family History Maternal Family History: Reports: Cancer - Kidney cancer Review of Systems General: Denies: Chills, Fever, Sweats Eyes: Denies: Visual changes - bilaterally, Diplopia ENT: Denies: Rhinorrhea, Sore throat Cardiovascular: Denies: Chest pain, Palpitations Respiratory: Denies: Dyspnea, Cough, Dyspnea on exertion Gastrointestinal: Reports: Abdominal pain. Denies: Nausea, Vomiting, Diarrhea, Melena, Hematochezia Genitourinary: Denies: Dysuria, Hematuria, Frequency Musculoskeletal: Denies: Back pain, Extremity Pain Skin: Denies: Rash, Wounds Neurological: Denies: Headache, Weakness, Numbness Physical Exam Vital Signs/Narrative: Vital Signs Temp Pulse Resp BP Pulse Ox 01/02/21 03:37 97.5 F L 106 H 18 150/94 H 97 General: Well nourished, Well developed, No Acute Distress Head: Normocephalic, Atraumatic Eyes: Perrl, EOMI ENT: Moist mucous membranes, No rhinorrhea Neck: Supple, Nontender Cardiovascular: Regular rate, Regular rhythm, No murmurs Respiratory: No distress, CTA bilaterally, Chest nontender Abdomen: Soft, Nontender, Nondistended, Normal bowel sounds : - - Pelvic exam shows that her IUD strings are in normal place. And to her cervix and disappear. I do not see the IUD dislodged in any way. Cervix appears normal. No vaginal discharge Back: Nontender, Normal Inspection Extremities: Nontender, No edema Skin: Normal color, No rash Neurological: Alert, Oriented x3, Cranial nerves II-XII grossly intact, Normal Strength, Normal Sensation Psychological: Normal affect, Normal Mood Diagnostic/Tx/Re-eval - Medical Decision Making Given Tylenol. Patient's pelvic exam is relatively normal. No significant tenderness or pain. Do not feel she needs imaging at this time. Urinalysis does show white blood cells and rare bacteria. Will be given Macrobid for this. test negative. She has an appointment with her WILDLIFE BIOSTATION RESEARCH ECOLOGIST tomorrow. She may have an early bladder infection. She also may have discomfort from her IUD. I feel she can follow-up. Have a low suspicion for gonorrhea chlamydia ED Disposition - Plan for ED Patient: Disposition: Home or Assisted Living Diagnosis: Cystitis Instructions: ED Bladder Infection, Female (Adult) Prescriptions: Nitrofurantoin Macrocrystals [Macrobid] 100 mg PO Q12 #10 capsule Transmission Status: Pending to [facility] Referrals: Caty Cardona DO [Primary Care Provider] -
[2021-01-02] MEDS: Acetaminophen 500 MG Tablet 1000 MG PO (03:55)
[2021-01-02 03:56] LABS: Mucous, Urine 0 SEEN /hpf (<or=2+); Red Blood Cells-Urine 0 SEEN /hpf (0-5)
[2021-01-02 03:57] LABS: Color, Urine Yellow (Yellow); Glucose, Dipstick Normal (Normal); Ketone-Dipstick Negative (Negative); Leukocyte Esterase-Dipstick 100 /ul (Negative); Nitrite-Dipstick Negative (Negative); Occult Blood-Urine Negative /ul (Negative); Protein-Dipstick Negative (Negative); Specific Gravity, Urine 1.015 (1.002-1.030); Urine Bilirubin Dipstick Negative (Negative); Urine Clarity Clear (Clear); Urine Urobilinogen Normal (Normal)
[2021-01-02 04:04] LABS: Bacteria RARE /hpf (None Seen); Internal QC Validated? YES +Cl - CLEAR BKGD; Pregnancy, Urine Negative Negative; Squamous Epithelial Cells - UA 0-5 SEEN /hpf (5-10); White Blood Cells 10-25 SEEN /hpf (0-5)
[2021-01-02] MEDS: Nitrofurantoin Macrocrystals 100 MG Capsule PO (04:23)
[2021-01-02 04:25] VITALS: BP 145/78; PULSE 95; RESP 18; O2SAT 100
== END 2021-01-02 04:26 | disposition home or self-care (01) ==
PROVIDERS: Emergency Provider Emergency Medicine; PCP Family Medicine
DX: N30.90 Cystitis, unspecified without hematuria (principal); E66.9 Obesity, unspecified
CPT/HCPCS: 81001; 81025; 99283

== ENCOUNTER 2021-05-12 16:34 | Emergency (ER) | payer MEDICAID, SELFPAY ==
[2021-05-12 16:35] VITALS: BP 112/72; PULSE 105; RESP 16; TEMP 36.7; O2SAT 96; BMI 29.0
--- NOTE | 2021-05-12 17:26 | EX.ED.UPPERE ---
HPI History of Present Illness Chief Complaint: Upper Extremity Injury Narrative Narrative: 21-year-old female presenting with right axillary swelling. She states this has been going on for about 2 days. She has not had any drainage from this. She states she believes it started after she shaved her armpits. Patient has a history of pilonidal cyst and I&D. She denies a history of MRSA. She has no systemic signs or symptoms. PFSH PFSH Home Medications nitrofurantoin monohyd/m-cryst 100 mg PO Q12 #10 capsule 01/02/21 [Rx Last Taken Unknown] clindamycin HCl 450 mg PO TID 10 Days #90 cap 05/12/21 [Rx Last Taken Unknown] Allergy/AdvReac Type Severity Reaction Status Date / Time morphine Allergy Rash Verified 05/12/21 16:37 ibuprofen AdvReac Nausea/Vom/ Verified 05/12/21 16:37 Diarrhea Social History Smoking Status: Current every day smoker tobacco type: cigarettes ROS ROS ED Constitutional Constitutional ED: Denies chills or sweats Eyes Eyes: Denies blurry vision or diplopia ENT ENT ED: Denies rhinorrhea or sore throat Cardiovascular Cardiovascular: Denies chest pain, palpitations or racing heartbeat Respiratory/Chest Respiratory/Chest: Denies cough, dyspnea or sputum Gastrointestinal Gastrointestinal: Denies abdominal pain, nausea or vomiting Genitourinary Genitourinary ED: Denies dysuria or hematuria Musculoskeletal Musculoskeletal: Denies back pain, myalgias or neck pain Integumentary Reports abscess and rash Neurologic Neurologic: Denies headache(s) or paresthesias EXAM Physical Exam Const Vital Signs: 05/12/21 16:35 Temperature 98.0 F Temperature Source Oral Pulse Rate 105 H Respiratory Rate 16 Blood Pressure 112/72 Blood Pressure Mean 85 Pulse Ox 96 Oxygen Delivery Method Room Air General Appearance ED: Negative for pallor HEENT Reports normocephalic, head/scalp atraumatic and moist mucous membranes normocephalic and atraumatic Eyes PERRL and EOMs intact bilaterally Neck no lymphadenopathy and supple Chest Wall inspection of chest normal and palpation of chest normal Resp normal respiratory effort and clear to auscultation bilaterally Auscultation: Negative for rales, rhonchi or wheezes Cardio regular rate and regular rhythm GI normal to inspection, nondistended, normoactive bowel sounds and non-distended Auscultation: normoactive bowel sounds Palpation: soft Narrative: Deferred Back/Spine no CVA tenderness General Back: Negative for CVA tenderness Cervical Spine: Negative for cervical spine tenderness Extremity normal to inspection General Extremety ED: Yes edema and tenderness General Extremity: edema Neuro oriented x3 and CN's II-XII intact bilaterally Sensorium / Orientation: alert Motor Exam: strength 5/5 throughout Psych mental status grossly normal Attitude: No agitated Skin no rashes or lesions noted and no wounds Skin Narrative: Slight erythema and 3 small areas of fluctuance which are small in the right axilla. The skin is not indurated. The right axilla is tender to palpation. No drainage noted. General Skin Exam: Negative for jaundice or pallor MDM MDM MDM Narrative Medical decision making narrative: Patient presenting with is likely hidradenitis suppurativa. She is counseled that she may need incision and drainage and she states that she does not want to do this because she had an I&D of her pilonidal cyst distantly and states she did not like it. Patient counseled that this would likely help the area heal. She states she just wants to be on antibiotics. I recommended that she at least at follow-up with the surgeon gave her Dr. Macdonald for follow-up. She will be started on clindamycin. Patient is counseled on warm compresses and given return precautions. Impression: 1. Hidradenitis suppurativa Discharge Plan Triage Chief Complaint: Upper Extremity Injury ED Provider: Kahlil Curiel Dx/Rx/DC Orders Instructions: ED Abscess Antibiotic Treatment Only Prescriptions: New clindamycin HCl 150 mg capsule 450 mg PO TID 10 Days Qty: 90 RF: 0 No Action nitrofurantoin monohyd/m-cryst 100 MG capsule 100 mg PO Q12 Qty: 10 RF: 0 Primary Care Provider: Care Physician,No Primary Referrals: Rudy Macdonald MD [STAFF PHYSICIAN] - As soon as possible Care Physician,No Primary [Primary Care Provider] - Disposition Disposition: Home, Self Care Discharge Date/Time: 05/12/21 17:38
[2021-05-12] MEDS: Clindamycin HCl 150 MG Capsule 450 MG PO (17:30)
== END 2021-05-12 17:38 | disposition home or self-care (01) ==
PROVIDERS: Emergency Provider Student in an Organized Health Care Education/Training Program
DX: L73.2 Hidradenitis suppurativa (principal); F17.210 Nicotine dependence, cigarettes, uncomplicated
CPT/HCPCS: 99283

== ENCOUNTER 2021-06-02 00:36 | Emergency (ER) | payer MEDICAID, SELFPAY ==
[2021-06-02 00:36] VITALS: BP 157/103; PULSE 89; RESP 18; TEMP 36.4; O2SAT 99; BMI 38.7
--- NOTE | 2021-06-02 01:29 | EX.ED.VIS.UR ---
HPI HPI - URI History of Present Illness Chief Complaint: Ear Problem Informant: patient Onset/Context/Timing Onset: Yesterday Context: Gradual Onset Timing: Continuous Quality: Pressure Location: Left ear Worsened by: - (Everything) Relieved by: - (Nothing) Associated Symptoms Associated Symptoms: Positive for Sinus Pressure; Negative for Nasal Congestion, Headache, Myalgias, Nausea, Vomiting, Diarrhea, Shortness of Breath, Chest Pain, Nonproductive cough, Hemoptysis and Productive Cough Narrative Narrative: Patient presents with left ear pain that began yesterday. Patient states it is gradually getting worse. Patient describes it as a pressure. Patient states it radiates into the left side of her neck. Patient states everything makes it worse. Patient states nothing makes it better. Patient mitts to some sinus pressure. Patient also noted some bleeding from the left external auditory canal today. Patient states it was gushing from her left ear. Patient denies any cough. Patient denies any shortness of breath. Patient denies any chest pain. Patient denies any nausea or vomiting. ROS ROS ED Constitutional Constitutional ED: Denies chills or fever(s) Eyes Eyes: Denies blurry vision or change in vision ENT ENT ED: Reports ear pain left; Denies rhinorrhea or sore throat Cardiovascular Cardiovascular: Denies chest pain or palpitations Respiratory/Chest Respiratory/Chest: Denies cough or dyspnea Gastrointestinal Gastrointestinal: Denies nausea or vomiting Genitourinary Genitourinary ED: Denies dysuria or hematuria Musculoskeletal Musculoskeletal: Reports neck pain; Denies back pain Integumentary Denies abscess or rash Neurologic Neurologic: Denies headache(s) or weakness Allergic/Immunologic Allergic/Immunologic ED: Denies mouth swelling or urticaria [facility] Medical History (Updated 06/02/21 @ 01:[address] Darek Steele, DO) Appendicitis no medical history Home Medications nitrofurantoin monohyd/m-cryst 100 mg PO Q12 #10 capsule 01/02/21 [Rx Last Taken Unknown] clindamycin HCl 450 mg PO TID 10 Days #90 cap 05/12/21 [Rx Last Taken Unknown] amoxicillin 500 mg PO TID #30 tab 06/02/21 [Rx Last Taken Unknown] Allergy/AdvReac Type Severity Reaction Status Date / Time morphine Allergy Rash Verified 06/02/21 00:38 ibuprofen AdvReac Nausea/Vom/ Verified 06/02/21 00:38 Diarrhea Surgical History (Updated 06/02/21 @ 01:[address] Darek Steele DO) Hx of appendectomy Hx of tonsillectomy Social History Smoking Status: Current every day smoker tobacco type: cigarettes EXAM Physical Exam Const Vital Signs: 06/02/21 00:36 Temperature 97.6 F L Temperature Source Temporal Pulse Rate 89 Respiratory Rate 18 Blood Pressure 157/103 H Blood Pressure Mean 121 Pulse Ox 99 Oxygen Delivery Method Room Air Positive well nourished, well developed and obese General Appearance ED: well developed Nutritional Appearance: obese HEENT Reports moist mucous membranes External Ear: external ears normal External Auditory Canal: EAC's normal Tympanic Membrane ED: Yes TM abnormal erythematous (Left) and fluid behind TM (Bilateral) Eyes PERRL and EOMs intact bilaterally Neck supple and no JVD Neuro oriented x3, CN's II-XII intact bilaterally and no sensory deficits noted Sensorium / Orientation: alert Motor Exam: strength 5/5 throughout Psych mental status grossly normal MDM MDM MDM Narrative Medical decision making narrative: Patient was given a dose of [place] here. Patient was given a dose of amoxicillin. Patient was given a prescription for amoxicillin. Patient was instructed to continue Tylenol and ibuprofen as needed for pain. Patient was instructed to follow-up with her primary care physician in 5 to 7 days. Patient understood and was agreeable with the plan. All questions were answered. Discharge Plan Triage Chief Complaint: Ear Problem ED Provider: Darek Steele Dx/Rx/DC Orders Clinical Impression: Acute left otitis media Instructions: ED Otitis Media Antibiotic ... Prescriptions: New amoxicillin 500 MG tablet 500 mg PO TID Qty: 30 RF: 0 No Action nitrofurantoin monohyd/m-cryst 100 MG capsule 100 mg PO Q12 Qty: 10 RF: 0 clindamycin HCl 150 mg capsule 450 mg PO TID 10 Days Qty: 90 RF: 0 Primary Care Provider: Care Physician,No Primary Referrals: Bailey Bob [NON-STAFF] - 3-5 Days Care Physician,No Primary [Primary Care Provider] - Disposition Disposition: Home, Self Care
[2021-06-02] MEDS: AMOXICILLIN 500 MG CAPSULE PO (01:45)
[2021-06-02] MEDS: HYDROcodone Bitartrate/Apap 5/325 Tablet PO (01:45)
== END 2021-06-02 01:46 | disposition home or self-care (01) ==
PROVIDERS: Emergency Provider Emergency Medicine
DX: H66.92 Otitis media, unspecified, left ear (principal); F17.210 Nicotine dependence, cigarettes, uncomplicated; E66.9 Obesity, unspecified
CPT/HCPCS: 99283

== ENCOUNTER 2021-09-25 02:12 | Emergency (ER) | payer MEDICAID, SELFPAY ==
[2021-09-25 02:13] VITALS: BP 148/95; PULSE 107; PULSE 109; RESP 16; TEMP 36.7; O2SAT 99; BMI 38.6
--- NOTE | 2021-09-25 02:27 | CT_ITS ---
STUDY: CT ABDOMEN AND PELVIS WITH CONTRAST REASON FOR EXAM: Female, 21 years old. RUQ pain RADIATION DOSAGE (If Supplied By Facility): CTDIvol = ( 22.04 ) mGy, DLP = ( 1397.88 ) mGycm TECHNIQUE: Transaxial images were obtained from the dome of the diaphragm to the symphysis pubis without oral contrast. IV 100mL Isovue-300 was administered. Sagittal and coronal images were reconstructed. Individualized dose optimization techniques were used for this CT. COMPARISON: May 16, 2018 CT scan abdomen and pelvis FINDINGS: The visualized lung bases are unremarkable. The visualized portions of the heart are within normal limits. Normal liver. Normal gallbladder and extrahepatic biliary system. Normal spleen. Normal pancreas. Normal bilateral adrenal glands. Normal right kidney. Normal left kidney. Normal visualized stomach. Normal small intestine. There is mild to moderate stool in the colon. There are surgical clips in the region of the appendix consistent with a prior appendectomy. Normal abdominal aorta. Normal inferior vena cava. Normal retroperitoneum. Normal urinary bladder. The uterus demonstrates a normal size. Since prior study however there is been a placement of the IUD which is in a low lying diagonal position with the tip at the level of the cervix. There is a trace amount of fluid within the pelvis. The uterus is deviated towards the right. Venous structures are minimally prominent within the pelvis Normal abdominal wall. Normal osseous structures. CT/Abdomen/Pelvis W IV Cont ONLY IMPRESSION: Mild to moderate constipation. Status post appendectomy. Since May 16, 2018 is interval placement of an IUD. It is now in migrated position with a rotatory diagonal low-lying appearance tip near the cervix, WARDROBE IMAGE CONSULTANT Consult and repositioning is recommended. [id number] constipation. No hydronephrosis. No radiographic visualization of cholelithiasis. Electronically Signed: Melissa Zarco MD at 4:03 EST Tel , Service support ,
[2021-09-25 02:45] LABS: Mucous, Urine 0 SEEN /hpf (<or=2+); Red Blood Cells-Urine 0 SEEN /hpf (0-5)
[2021-09-25 02:46] LABS: Color, Urine Yellow (Yellow); Glucose, Dipstick Normal (Normal); Ketone-Dipstick Negative (Negative); Leukocyte Esterase-Dipstick 100 /ul (Negative); Nitrite-Dipstick Negative (Negative); Occult Blood-Urine 10 /ul (Negative); Protein-Dipstick Negative (Negative); Specific Gravity, Urine 1.015 (1.002-1.030); Urine Bilirubin Dipstick Negative (Negative); Urine Clarity Cloudy (Clear); Urine Urobilinogen 4 mg/dl (Normal)
[2021-09-25 02:55] LABS: Internal QC Validated? YES +Cl - CLEAR BKGD; Pregnancy, Urine Negative Negative
[2021-09-25 02:58] LABS: Amorphous Sediment 2+; Bacteria 3+ /hpf (None Seen); White Blood Cells 5-10 SEEN /hpf (0-5)
[2021-09-25 02:59] LABS: Squamous Epithelial Cells - UA 0-5 SEEN /hpf (5-10)
--- NOTE | 2021-09-25 03:02 | EX.ED.DYSGE1 ---
HPI History of Present Illness Chief Complaint: Abd Pain Narrative Narrative: Patient is a 21-year-old female who states that over the past 24 to 36 h she has had pain in her right flank/upper abdomen region. She states that the pain worsened this evening and that there was no stimulating factors such as trauma extra activity or eating. She denies any fevers or chills but states that with the increasing pain she is concerned she may be developing an infection and therefore comes in for evaluation. Patient does states she has a past surgical history of appendectomy. [facility] Medical History Appendicitis Home Medications nitrofurantoin monohyd/m-cryst 100 mg PO Q12 #10 capsule 01/02/21 [Rx Last Taken Unknown] clindamycin HCl 450 mg PO TID 10 Days #90 cap 05/12/21 [Rx Last Taken Unknown] amoxicillin 500 mg PO TID #30 tab 06/02/21 [Rx Last Taken Unknown] hydrocodone-acetaminophen 1 tab PO Q6H PRN 3 Days #12 tab 09/25/21 [Rx Last Taken Unknown] sulfamethoxazole-trimethoprim [Bactrim DS] 1 tab PO BID #20 tab 09/25/21 [Rx Last Taken Unknown] Allergy/AdvReac Type Severity Reaction Status Date / Time morphine Allergy Rash Verified 06/02/21 00:38 ibuprofen AdvReac Nausea/Vom/ Verified 06/02/21 00:38 Diarrhea Surgical History (Updated 06/02/21 @ 01:[address] Darek Steele DO) Hx of appendectomy Hx of tonsillectomy Social History Smoking Status: Current every day smoker tobacco type: cigarettes ROS ROS ED Constitutional Constitutional ED: Denies chills or fever(s) ENT ENT ED: Denies sore throat Cardiovascular Cardiovascular: Denies chest pain Respiratory/Chest Respiratory/Chest: Denies cough or dyspnea Gastrointestinal Gastrointestinal: Reports abdominal pain and nausea; Denies diarrhea or vomiting Genitourinary Genitourinary ED: Denies dysuria Musculoskeletal Musculoskeletal: Reports back pain; Denies myalgias Integumentary Denies rash Neurologic Neurologic: Denies headache(s) Hematologic/Lymphatic Hematologic/Lymphatic: Denies easy bleeding or easy bruising EXAM Physical Exam Const Vital Signs: 09/25/21 02:13 Temperature 98.0 F Temperature Source Temporal Pulse Rate 109 H Respiratory Rate 16 Blood Pressure 148/95 H Blood Pressure Mean 112 Pulse Ox 99 Oxygen Delivery Method Room Air Positive well nourished and well developed General Appearance ED: well developed HEENT Reports moist mucous membranes Eyes PERRL and EOMs intact bilaterally General Eye ED: Negative for scleral icterus Neck supple Resp normal respiratory effort and clear to auscultation bilaterally Cardio regular rate and regular rhythm GI non-distended GI Narrative: There is pain with palpation in the right upper quadrant without voluntary guarding or rigidity. Negative Triana sign Auscultation: normoactive bowel sounds Palpation: soft Back/Spine Back/Spine Narrative: Positive right CVA pain noted Extremity normal to inspection Neuro oriented x3 and CN's II-XII intact bilaterally Sensorium / Orientation: alert Motor Exam: strength 5/5 throughout Psych mental status grossly normal Skin no rashes or lesions noted MDM MDM MDM Narrative Medical decision making narrative: Patient presented to the ER afebrile but was slightly tachycardic and hypertensive most likely related to her pain. She had pain in the right upper quadrant and right flank concerning for possible kidney stone kidney infection or gallbladder disease. Secondary to this I performed basic laboratory studies and a CT scan. Labs showed UTI but no changes to suggest urosepsis or acute kidney injury. Liver enzymes are also normal. CT scan revealed no acute abdominal pathology. On reevaluation she is resting comfortably and has had much improvement in her pain with treatment. Therefore at this time with work-up pointing more to pyelonephritis as the cause of her pain I will send the urine for culture start her on Rocephin in the ER and then she can be discharged home to the infection. However if she is not uroseptic or having acute kidney injury there is no need for further evaluation and patient can be discharged. Lab Data Attestation: I reviewed the patient's lab results. Labs: Laboratory Results - last 24 hr 09/25/21 09/25/21 09/25/21 02:15 03:06 03:06 WBC 8.8 RBC 4.88 Hgb 14.8 Hct 47.9 H MCV 98.2 MCH 30.3 MCHC 30.9 L RDW Std Deviation 47.7 H RDW Coeff of Melanie 13.2 Plt Count 267 MPV 9.7 Immature Gran % (Auto) 0.200 Neut % (Auto) 65.2 Lymph % (Auto) 22.6 Lyman % (Auto) 9.0 Eos % (Auto) 1.9 Baso % (Auto) 1.1 H Absolute Neuts (auto) 5.7 Absolute Lymphs (auto) 1.99 Nucleated RBC % 0 Sodium 140 Potassium 3.3 L Chloride 111 H Carbon Dioxide 19.0 L Anion Gap 10 BUN 9 Creatinine 0.83 Estim Creat Clear Calc 103.39 Est GFR (MDRD) Af Amer 110 Est GFR (MDRD) Non-Af 91 BUN/Creatinine Ratio 10.8 Glucose 81 Calcium 8.7 Total Bilirubin 0.40 Direct Bilirubin 0.08 AST 22 ALT 35 Alkaline Phosphatase 89 Total Protein 7.5 Albumin 3.3 Globulin 4.2 Lipase 34 L Urine Color Yellow Urine Clarity Cloudy Urine pH 8.0 Ur Specific Dennison 1.015 Urine Protein Negative Urine Glucose (UA) Normal Urine Ketones Negative Urine Occult Blood 10 H Urine Nitrite Negative Urine Bilirubin Negative Urine Urobilinogen 4 H Ur Leukocyte Esterase 100 H Urine RBC 0 SEEN Urine WBC 5-10 SEEN Ur Squamous Epith Cells 0-5 SEEN Amorphous Sediment 2+ Urine Bacteria 3+ Urine Mucus 0 SEEN Urine Test Negative Radiography Diagnostic Testing: Clinical Impression(s) from Imaging Studies Abdomen/Pelvis CT 09/25/21 02:27 IMPRESSION: Mild to moderate constipation. Status post appendectomy. Since May 16, 2018 is interval placement of an IUD. It is now in migrated position with a rotatory diagonal low-lying appearance tip near the cervix, TABULAR TYPIST Consult and repositioning is recommended. [id number] constipation. No hydronephrosis. No radiographic visualization of cholelithiasis. Electronically Signed: Melissa Zarco MD at 4:03 EST Tel , Service support , Discharge Plan Triage Chief Complaint: Abd Pain ED Provider: João Toscano Dx/Rx/DC Orders Clinical Impression: Pyelonephritis Instructions: ED Pyelonephritis, Female (Adult) Prescriptions: New sulfamethoxazole-trimethoprim [Bactrim DS] 800-160 mg tablet 1 tab PO BID Qty: 20 RF: 0 hydrocodone-acetaminophen 5-325 mg tablet 1 tab PO Q6H PRN (Reason: pain) 3 Days Qty: 12 RF: 0 No Action nitrofurantoin monohyd/m-cryst 100 MG capsule 100 mg PO Q12 Qty: 10 RF: 0 clindamycin HCl 150 mg capsule 450 mg PO TID 10 Days Qty: 90 RF: 0 amoxicillin 500 MG tablet 500 mg PO TID Qty: 30 RF: 0 Primary Care Provider: Care Physician,No Primary Referrals: Caty Cardona, [STAFF PHYSICIAN] - 1 Week if not improving Care Physician,No Primary [Primary Care Provider] - Disposition Disposition: Home, Self Care
[2021-09-25] MEDS: HYDROmorphone 1 MG/ML Syringe IV (03:09)
[2021-09-25] MEDS: 0.9% Normal Saline 1,000 ML 999 ML IV (03:09)
[2021-09-25] MEDS: Ondansetron 4 MG/2 ML Vial IV (03:09)
[2021-09-25 03:16] LABS: Absolute Lymphocyte Count 1.99 X10^3/uL (0.83-4.51); Absolute Neutrophil Count 5.7 X10^3/uL (2.0-7.7); Basophil% 1.1 % (0-1); Eosinophil# 0.17 X10^3/uL; Eosinophils% 1.9 % (0-5); Hematocrit 47.9 % (37-47); Hemoglobin 14.8 g/dL (12.0-15.0); Lymphocyte # 1.99 X10^3/ul (0.83-4.51); Lymphocyte % 22.6 % (19-41); Mean Corp Hgb Conc 30.9 g/dL (32-36); Mean Corpuscular Hgb 30.3 pg (27.0-32.0); Mean Corpuscular Volume 98.2 fL (81-99); Mean Platelet Vol. 9.7 fl (6.2-12.0); Monocyte# 0.79 X10^3/uL; NRBC Flagged by Analyzer 0 % (0-5); Neutrophil # 5.73 X10^3/uL (2.7-7.7); Neutrophil % 65.2 % (47-70); Platelet Count 267 K/mm3 (150-450); RBC Distribution Width CV 13.2 % (11.6-14.6); RBC Distribution Width SD 47.7 fl (35.1-43.9); Red Blood Count 4.88 M/mm3 (4.2-5.4); White Blood Count 8.8 K/mm3 (4.4-11.0)
[2021-09-25 03:50] LABS: AST(SGOT) 22 U/L (15-37); Alanine Aminotransfer ALT/SGPT 35 U/L (13-56); Albumin, Serum 3.3 g/dL (3.2-5.0); Alkaline Phosphatase 89 U/L (45-117); Anion Gap 10 (5-15); BUN 9 mg/dL (7-18); BUN/Creat Ratio 10.8 RATIO (10-20); Bilirubin, Direct 0.08 mg/dL (0.00-0.30); Calcium,Total 8.7 mg/dL (8.5-10.1); Chloride 111 mmol/L (98-107); Creatinine, Serum 0.83 mg/dL (0.55-1.02); EST Glomerular Filtration Rate 91 mL/min (>60); Est Glom Filt Rate - Afr Amer 110 mL/min (>60); Estimated Creatinine Clearance 103.39 ml/min; Globulin 4.2 g/dL (2.2-4.2); Glucose 81 mg/dL (74-106); Lipase 34 U/L (73-393); Potassium 3.3 mmol/L (3.5-5.1); Protein, Total 7.5 g/dL (6.4-8.2); Sodium Level 140 mmol/L (136-145)
[2021-09-25] MEDS: Ceftriaxone 1 GM/50 ML BAG IV (04:22)
[2021-09-25 04:34] VITALS: PULSE 78; RESP 16; O2SAT 97
== END 2021-09-25 04:50 | disposition home or self-care (01) ==
PROVIDERS: Emergency Provider Emergency Medicine; Visit Provider Emergency Medicine
DX: N12 Tubulo-interstitial nephritis, not specified as acute or chronic (principal); F17.210 Nicotine dependence, cigarettes, uncomplicated
CPT/HCPCS: 74177; 80048; 80076; 81001; 81025; 83690; 85025; 87086; 87088; 96365; 96375; 99285; J7030; Q9967; A4216; J2405

== ENCOUNTER 2021-10-05 00:05 | Emergency (ER) | payer MEDICAID, SELFPAY ==
[2021-10-05 00:05] VITALS: BP 134/78; PULSE 99; RESP 18; TEMP 36.6; O2SAT 97; BMI 36.5
[2021-10-05] MEDS: Ketorolac 30 MG/ML Syringe IV (00:38)
[2021-10-05] MEDS: dexAMETHasone 10 MG/ML Vial IV (00:38)
--- NOTE | 2021-10-05 00:48 | RAD_ITS ---
EXAM: XR CHEST, 1 VIEW CLINICAL INDICATION: cough TECHNIQUE: Frontal view of the chest. This report was created using [employer] report generation technology. COMPARISON: None. FINDINGS: LUNGS AND PLEURAL SPACES: Unremarkable. No consolidation or edema. No pneumothorax. No effusion. HEART: Unremarkable. Cardiac silhouette not enlarged. MEDIASTINUM: Central airways and mediastinal contour are unremarkable. BONES/JOINTS: Unremarkable. SOFT TISSUES: Unremarkable. RAD/Chest 1 View (Portable) IMPRESSION: No radiographic evidence of acute cardiopulmonary disease. Electronically Signed: João Reynaga MD at 1:06 EST Tel , Service support ,
--- NOTE | 2021-10-05 00:56 | EX.ED.DYSGE1 ---
HPI History of Present Illness Chief Complaint: Sore Throat Narrative Narrative: Patient is a 21-year-old female who states that she has had myalgias with a fever of 101 at home for the past 1 to 2 days. She states with this she has had nasal congestion mild cough and sore throat. She reports she is not vaccinated against COVID and states she was also exposed to a family member who was diagnosed with bronchitis and pneumonia. She also reports she is got a past surgical history of tonsillectomy when she was 12. She reports that with her constellation of symptoms she is worried she is developing an illness and therefore comes in for evaluation [facility] Medical History Appendicitis Home Medications albuterol sulfate [Ventolin HFA] 1 - 2 puff INHALATION Q4H PRN PRN #1 device 10/05/21 [Rx Last Taken Unknown] azelastine 2 spray INTRANASAL BID #30 ml 10/05/21 [Rx Last Taken Unknown] prednisone 40 mg PO DAILY 7 Days #14 tab 10/05/21 [Rx Last Taken Unknown] promethazine-codeine 5 ml PO Q6H PRN 7 Days #140 ml 10/05/21 [Rx Last Taken Unknown] Allergy/AdvReac Type Severity Reaction Status Date / Time morphine Allergy Rash Verified 06/02/21 00:38 ibuprofen AdvReac Nausea/Vom/ Verified 06/02/21 00:38 Diarrhea Surgical History (Updated 06/02/21 @ 01:[address] Darek Steele DO) Hx of appendectomy Hx of tonsillectomy Social History Smoking Status: Current every day smoker tobacco type: cigarettes ROS ROS ED Constitutional Constitutional ED: Reports chills and fever(s) ENT ENT ED: Reports rhinorrhea and sore throat Cardiovascular Cardiovascular: Denies chest pain Respiratory/Chest Respiratory/Chest: Reports cough; Denies dyspnea Gastrointestinal Gastrointestinal: Denies abdominal pain, diarrhea, nausea or vomiting Genitourinary Genitourinary ED: Denies dysuria Musculoskeletal Musculoskeletal: Reports myalgias Integumentary Denies rash Neurologic Neurologic: Denies headache(s) Hematologic/Lymphatic Hematologic/Lymphatic: Denies easy bleeding or easy bruising EXAM Physical Exam Const Vital Signs: 10/05/21 00:05 Temperature 97.8 F Temperature Source Temporal Pulse Rate 99 Respiratory Rate 18 Blood Pressure 134/78 H Blood Pressure Mean 96 Pulse Ox 97 Oxygen Delivery Method Room Air Positive well nourished and well developed General Appearance ED: well developed HEENT Reports moist mucous membranes HEENT Narrative: Nasal mucosa is hyperemic and boggy with enlarged inferior nasal turbinate. Posterior pharynx displays cobblestoning consistent with sinus drainage but no airway edema or compromise. No trismus or difficulty with secretions noted Eyes PERRL and EOMs intact bilaterally Neck supple Neck Narrative: Positive anterior cervical of adenopathy palpated Resp normal respiratory effort Resp Narrative: Breath sounds are diminished throughout with diffuse expiratory wheeze but no signs of respiratory distress Cardio regular rate and regular rhythm GI normal to inspection, nondistended, normoactive bowel sounds, non-tender, non-distended and no masses Auscultation: normoactive bowel sounds Palpation: soft Extremity normal to inspection Neuro oriented x3 and CN's II-XII intact bilaterally Sensorium / Orientation: alert Motor Exam: strength 5/5 throughout Psych mental status grossly normal Skin no rashes or lesions noted MDM MDM MDM Narrative Medical decision making narrative: Patient presented to the ER afebrile and in no acute distress. She does not have her tonsils and therefore concern for peritonsillar abscess and strep is very low. Moreover she does not have trismus or difficulty with secretions and there are no meningeal signs noted. Her constellation of symptoms are more viral in nature with her report of congestion cough sore throat fatigue and myalgias. I did concerned this could be COVID so rapid swab was ordered. COVID swab was negative. Patient did report exposure to possible pneumonia on an outpatient basis so an x-ray was added which showed no acute lung pathology. On reevaluation she is resting comfortably and tolerating her secretions and is in no respiratory distress and therefore will be discharged home with symptomatic care for her viral illness Radiography Diagnostic Testing: Clinical Impression(s) from Imaging Studies Chest X-Ray 10/05/21 00:48 IMPRESSION: No radiographic evidence of acute cardiopulmonary disease. Electronically Signed: João Reynaga MD at 1:06 EST Tel , Service support , Discharge Plan Triage Chief Complaint: Sore Throat ED Provider: João Toscano Dx/Rx/DC Orders Clinical Impression: Viral upper respiratory illness Instructions: ED URI, Viral W/ Wheezing (Adult) Prescriptions: New prednisone 20 mg tablet 40 mg PO DAILY 7 Days Qty: 14 RF: 0 azelastine 137 mcg (0.1 %) aerosol,spray 2 spray intranasal BID Qty: 30 RF: 0 albuterol sulfate [Ventolin HFA] 90 mcg/actuation HFA aerosol inhaler 1 - 2 puff inhalation Q4H PRN PRN (Reason: Wheezing) Qty: 1 RF: 0 promethazine-codeine 6.25-10 mg/5 mL syrup 5 ml PO Q6H PRN (Reason: cough) 7 Days Qty: 140 RF: 0 Primary Care Provider: Care Physician,No Primary Referrals: Beverley Humphreys MD [STAFF PHYSICIAN] - 1 Week if not improving Care Physician,No Primary [Primary Care Provider] - Disposition Disposition: Home, Self Care
== END 2021-10-05 01:45 | disposition home or self-care (01) ==
PROVIDERS: Emergency Provider Emergency Medicine; Visit Provider Emergency Medicine
DX: J06.9 Acute upper respiratory infection, unspecified (principal); F17.210 Nicotine dependence, cigarettes, uncomplicated
CPT/HCPCS: 71045; 87426; 96374; 96375; 99283; A4216

== ENCOUNTER 2021-12-08 22:55 | Emergency (ER) | payer MEDICAID, SELFPAY ==
[2021-12-08 22:56] VITALS: BP 125/72; PULSE 85; RESP 16; TEMP 35.7; O2SAT 93; BMI 29.0
[2021-12-08 23:30] VITALS: RESP 18
[2021-12-08] MEDS: Neomycin/Polymyxin/Dexameth 5ML OPTH.BTL 4 DRP LEFT EAR (23:30)
--- NOTE | 2021-12-09 00:17 | EDS_ITS ---
HPI History of Present Illness Chief Complaint: Ear Problem Informant: patient Onset/Context/Timing Onset: Days Context: Gradual Onset Maximum Severity: Severe Associated Symptoms Associated Symptoms: radiates to face Narrative Narrative: Patient presents for left ear pain. She has been using earwax drops. Denies any bleeding or discharge. The pain wraps around to her left cheek and left face. No trauma. No fevers or systemic symptoms. PFSH PFSH Medical History Appendicitis Home Medications albuterol sulfate [Ventolin HFA] 1 - 2 puff INHALATION Q4H PRN PRN #1 device 10/05/21 [Rx Last Taken Unknown] azelastine 2 spray INTRANASAL BID #30 ml 10/05/21 [Rx Last Taken Unknown] prednisone 40 mg PO DAILY 7 Days #14 tab 10/05/21 [Rx Last Taken Unknown] promethazine-codeine 5 ml PO Q6H PRN 7 Days #140 ml 10/05/21 [Rx Last Taken Unknown] ggsjjkiq-[id number]-[id number] 4 drp LEFT EAR Q6H 7 Days ml 12/08/21 [Rx Last Taken Unknown] Allergy/AdvReac Type Severity Reaction Status Date / Time morphine Allergy Rash Verified 12/08/21 23:00 ibuprofen AdvReac Nausea/Vom/ Verified 12/08/21 23:00 Diarrhea Surgical History Hx of appendectomy Hx of tonsillectomy Social History Smoking Status: Current every day smoker tobacco type: cigarettes ROS ROS ED Review of Systems ROS Unobtainable: Denies due to encephalopathy Constitutional Constitutional ED: Denies fever(s) Eyes Eyes: Denies change in vision ENT ENT ED: Reports ear pain; Denies rhinorrhea or sore throat Cardiovascular Cardiovascular: Denies chest pain Respiratory/Chest Respiratory/Chest: Denies dyspnea Gastrointestinal Gastrointestinal: Denies abdominal pain Genitourinary Genitourinary ED: Denies dysuria Musculoskeletal Musculoskeletal: Denies myalgias Integumentary Denies rash Neurologic Neurologic: Denies headache(s) Psychiatric Psychiatric: Denies depression Endocrine Endocrinology: Denies polyuria Allergic/Immunologic Allergic/Immunologic ED: Denies urticaria EXAM Physical Exam Const Vital Signs: 12/08/21 22:56 12/08/21 23:30 Temperature 96.2 F L Temperature Source Temporal Pulse Rate 85 Respiratory Rate 16 18 Blood Pressure 125/72 H Blood Pressure Mean 89 Pulse Ox 93 Oxygen Delivery Method Room Air Positive well nourished and well developed General Appearance ED: well developed HEENT HEENT Narrative: Left tragus tender to palpation, canal slightly erythematous. TMs clear. Negative for trauma Eyes PERRL and EOMs intact bilaterally Neck no lymphadenopathy and supple Resp normal respiratory effort Cardio regular rate Skin no rashes or lesions noted MDM MDM MDM Narrative Medical decision making narrative: Patient has otitis externa. Treated with Cor tisporin otic drops. Follow-up with ENT. Discharge Impression #1 left otitis externa Discharge Plan Triage Chief Complaint: Ear Problem ED Provider: Gurpreet Hastings Dx/Rx/DC Orders Instructions: ED External Ear Infection (Adult) Prescriptions: New fnkjkgzo-towoxbjiz-GK 3.5-10,000-1 mg/mL-unit/mL-% solution 4 drp LEFT EAR Q6H 7 Days RF: 0 No Action prednisone 20 mg tablet 40 mg PO DAILY 7 Days Qty: 14 RF: 0 azelastine 137 mcg (0.1 %) aerosol,spray 2 spray intranasal BID Qty: 30 RF: 0 albuterol sulfate [Ventolin HFA] 90 mcg/actuation HFA aerosol inhaler 1 - 2 puff inhalation Q4H PRN PRN (Reason: Wheezing) Qty: 1 RF: 0 promethazine-codeine 6.25-10 mg/5 mL syrup 5 ml PO Q6H PRN (Reason: cough) 7 Days Qty: 140 RF: 0 Primary Care Provider: Care Physician,No Primary Referrals: Abe Richard MD [STAFF PHYSICIAN] - Disposition Disposition: Home, Self Care Discharge Date/Time: 12/08/21 23:32
== END 2021-12-08 23:32 | disposition home or self-care (01) ==
PROVIDERS: Emergency Provider Emergency Medicine; Visit Provider Emergency Medicine
DX: H60.92 Unspecified otitis externa, left ear (principal); F17.210 Nicotine dependence, cigarettes, uncomplicated
CPT/HCPCS: 99282

== ENCOUNTER 2021-12-12 15:13 | Emergency (ER) | payer MEDICAID, SELFPAY ==
[2021-12-12 15:14] VITALS: BP 142/110; PULSE 92; RESP 14; TEMP 36.2; O2SAT 96; BMI 29.2
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
[2021-12-12] MEDS: Amox/Clavulanate 875 MG Tablet PO (17:04)
== END 2021-12-12 17:05 | disposition home or self-care (01) ==
PROVIDERS: Emergency Provider Emergency Medicine; Visit Provider Emergency Medicine
DX: H66.92 Otitis media, unspecified, left ear (principal); H60.92 Unspecified otitis externa, left ear; F17.210 Nicotine dependence, cigarettes, uncomplicated
CPT/HCPCS: 99283

== ENCOUNTER 2021-12-30 10:43 | Emergency (ER) | payer MEDICAID, SELFPAY ==
[2021-12-30 10:43] VITALS: BP 144/93; PULSE 86; RESP 16; TEMP 36.3; O2SAT 99; BMI 29.0
--- NOTE | 2021-12-30 10:58 | ED.VIS.DENTA ---
HPI History of Present Illness Chief Complaint: Dental Informant: patient Narrative Narrative: 21-year-old female presenting to the emergency room with facial pain. She states that she has been on about 4 different antibiotics recently for dental issues. She was referred to the [facility] and she went there. She was then referred to another dentist for extraction. She states that that appointment is an the beginning of January. She states that she is having a lot of pain on the left side of her face and into her ear. She states that she was told that there is nothing more that the [facility] dentist can do for her that if she had problems she should come to the emergency department. Patient denies any fevers. She denies any difficulty handling her secretions or voice changes. [facility] Medical History Appendicitis Home Medications albuterol sulfate [Ventolin HFA] 1 - 2 puff INHALATION Q4H PRN PRN #1 device 10/05/21 [Rx Last Taken Unknown] azelastine 2 spray INTRANASAL BID #30 ml 10/05/21 [Rx Last Taken Unknown] prednisone 40 mg PO DAILY 7 Days #14 tab 10/05/21 [Rx Last Taken Unknown] promethazine-codeine 5 ml PO Q6H PRN 7 Days #140 ml 10/05/21 [Rx Last Taken Unknown] blhbqmqg-biyhwnzbx-AQ 4 drp LEFT EAR Q6H 7 Days ml 12/08/21 [Rx Last Taken Unknown] amoxicillin-pot clavulanate 1 tab PO BID #20 tab 12/12/21 [Rx Last Taken Unknown] famotidine [Pepcid] 40 mg PO DAILY #20 tab 12/12/21 [Rx Last Taken Unknown] hydrocodone-acetaminophen 1 tab PO Q6H PRN PRN 3 Days #12 tablet 12/30/21 [Rx Last Taken Unknown] ibuprofen 600 mg PO Q8H PRN PRN #20 tablet 12/30/21 [Rx Last Taken Unknown] Allergy/AdvReac Type Severity Reaction Status Date / Time morphine Allergy Rash Verified 12/30/21 10:43 ibuprofen AdvReac Nausea/Vom/ Verified 12/30/21 10:43 Diarrhea Surgical History Hx of appendectomy Hx of tonsillectomy Social History Smoking Status: Current every day smoker tobacco type: cigarettes ROS ROS ED Constitutional Constitutional ED: Denies chills, fever(s) or weight loss Eyes Eyes: Denies change in vision or diplopia ENT ENT ED: Reports ear pain and other Details: Dental pain ; Denies rhinorrhea or sore throat Cardiovascular Cardiovascular: Denies chest pain, orthopnea, palpitations or racing heartbeat Respiratory/Chest Respiratory/Chest: Denies cough, dyspnea or orthopnea Gastrointestinal Gastrointestinal: Denies abdominal pain, diarrhea, nausea or vomiting Genitourinary Genitourinary ED: Denies dysuria, hematuria or urinary frequency Musculoskeletal Musculoskeletal: Denies arthralgias or myalgias Integumentary Denies abscess or rash Neurologic Neurologic: Denies headache(s) or weakness Psychiatric Psychiatric: Denies anxiety, depression, suicidal ideation or suicidal thoughts Endocrine Endocrinology: Denies polydipsia, polyphagia or polyuria Allergic/Immunologic Allergic/Immunologic ED: Denies mouth swelling, tongue swelling or urticaria EXAM Physical Exam Const Vital Signs: 12/30/21 10:43 Temperature 97.3 F L Temperature Source Temporal Pulse Rate 86 Respiratory Rate 16 Blood Pressure 144/93 H Blood Pressure Mean 110 Pulse Ox 99 Oxygen Delivery Method Room Air Positive well nourished and well developed General Appearance ED: well developed HEENT Reports normocephalic, head/scalp atraumatic, TM's clear and moist mucous membranes HEENT Narrative: I do not appreciate any swelling along the gumline or over the face. There is no facial erythema. There is dental decay. No trismus. Negative for trauma Tympanic Membrane ED: Yes TM's clear Eyes PERRL and EOMs intact bilaterally Neck no lymphadenopathy, supple and no JVD Resp normal respiratory effort and clear to auscultation bilaterally Cardio regular rate, regular rhythm and no murmurs GI normal to inspection, nondistended, normoactive bowel sounds and non-tender Palpation: soft Back/Spine no CVA tenderness and normal ROM Extremity normal to inspection General Extremety ED: Negative for edema General Extremity: Negative for edema Neuro oriented x3 and CN's II-XII intact bilaterally Sensorium / Orientation: alert Motor Exam: strength 5/5 throughout Psych mental status grossly normal Mood & Affect: Negative for depressed or tearful Skin no rashes or lesions noted and no wounds MDM MDM MDM Narrative Medical decision making narrative: I think that the likelihood of the patient needing antibiotics at this point is low. She is already had 4 different antibiotics and worry about C. difficile or other complications. I can write her to have some pain medicine. I did check an [facility] report. I explained to her I cannot do dental extractions or really much in terms of dentistry. She does understand this Discharge Plan Triage Chief Complaint: Dental ED Provider: Gurpreet Barnard Dx/Rx/DC Orders Clinical Impression: Odontalgia Instructions: ED Dental Pain Prescriptions: New hydrocodone-acetaminophen [hydrocodone-acetaminophen] 1 TABLET tablet 1 tab PO Q6H PRN PRN (Reason: Pain) 3 Days Qty: 12 RF: 0 ibuprofen 600 MG tablet 600 mg PO Q8H PRN PRN (Reason: pain) Qty: 20 RF: 0 No Action prednisone 20 mg tablet 40 mg PO DAILY 7 Days Qty: 14 RF: 0 azelastine 137 mcg (0.1 %) aerosol,spray 2 spray intranasal BID Qty: 30 RF: 0 albuterol sulfate [Ventolin HFA] 90 mcg/actuation HFA aerosol inhaler 1 - 2 puff inhalation Q4H PRN PRN (Reason: Wheezing) Qty: 1 RF: 0 promethazine-codeine 6.25-10 mg/5 mL syrup 5 ml PO Q6H PRN (Reason: cough) 7 Days Qty: 140 RF: 0 vyolalwz-wdazjrymb-ZX 3.5-10,000-1 mg/mL-unit/mL-% solution 4 drp LEFT EAR Q6H 7 Days RF: 0 amoxicillin-pot clavulanate 875-125 mg tablet 1 tab PO BID Qty: 20 RF: 0 famotidine [Pepcid] 40 mg tablet 40 mg PO DAILY Qty: 20 RF: 0 Primary Care Provider: Care Physician,No Primary Referrals: Care Physician,No Primary [Primary Care Provider] - Activity Restrictions/Additional Instructions: Please keep your dental appointment Disposition Disposition: Home, Self Care
== END 2021-12-30 11:09 | disposition home or self-care (01) ==
LOC: ED 11:05
PROVIDERS: Emergency Provider Emergency Medicine; Visit Provider Emergency Medicine
DX: K08.89 Other specified disorders of teeth and supporting structures (principal); F17.210 Nicotine dependence, cigarettes, uncomplicated
CPT/HCPCS: 99282

== ENCOUNTER 2022-01-02 03:04 | Emergency (ER) | payer MEDICAID, SELFPAY ==
[2022-01-02 03:04] VITALS: BP 158/114; PULSE 103; RESP 17; TEMP 36.2; O2SAT 95
[2022-01-02 03:07] VITALS: BP 158/114; TEMP 36.6; BMI 38.7
--- NOTE | 2022-01-02 03:29 | EX.ED.DYSGE1 ---
HPI History of Present Illness Chief Complaint: Dental Informant: patient Onset/Context/Timing Onset: Days Context: Gradual Onset Current Severity: Severe Maximum Severity: Severe Narrative Narrative: Patient presents secondary to severe dental pain. Patient has been seen in the ER several times with dental pain. She followed up with the [facility] clinic who referred her to a dentist in [place]. She has an appointment on January 14. Patient was seen in the ER on the secondary to dental pain. There was no evidence of infection at that time. She was given prescription for [place] and ibuprofen. Patient returns this morning in tears stating that she cannot sleep because of the pain and the medication that we gave her did nothing. She states she called the dentist office again yesterday and they cannot see her any sooner. She states that is the only dentist in the area that accepts her insurance. [facility] Medical History Bipolar disorder Home Medications hydrocodone-acetaminophen 1 tab PO Q6H PRN PRN 3 Days #12 tablet 12/30/21 [Rx Last Taken Unknown] ibuprofen 600 mg PO Q8H PRN PRN #20 tablet 12/30/21 [Rx Last Taken Unknown] clindamycin HCl 300 mg PO 4X/DAY #80 cap 01/02/22 [Rx Last Taken Unknown] oxycodone-acetaminophen [Percocet] 1 tab PO Q6H PRN 3 Days #10 tab 01/02/22 [Rx Last Taken Unknown] Allergy/AdvReac Type Severity Reaction Status Date / Time morphine Allergy Rash Verified 01/02/22 03:05 ibuprofen AdvReac Nausea/Vom/ Verified 01/02/22 03:05 Diarrhea Surgical History Hx of appendectomy Hx of tonsillectomy Social History Smoking Status: Current every day smoker tobacco type: cigarettes ROS ROS ED Constitutional Constitutional ED: Denies chills or fever(s) Eyes Eyes: Denies blurry vision or change in vision ENT ENT ED: Reports ear pain left and other Details: Left-sided dental pain Cardiovascular Cardiovascular: Denies chest pain or palpitations Respiratory/Chest Respiratory/Chest: Denies cough or dyspnea Gastrointestinal Gastrointestinal: Denies abdominal pain, diarrhea or vomiting Genitourinary Genitourinary ED: Denies dysuria Integumentary Denies rash Neurologic Neurologic: Denies paresthesias or weakness Endocrine Endocrinology: Denies polydipsia or polyuria Allergic/Immunologic Allergic/Immunologic ED: Denies urticaria EXAM Physical Exam Const Vital Signs: 01/02/22 03:04 01/02/22 03:07 Temperature 97.1 F L 97.9 F Temperature Source Temporal Temporal Pulse Rate 103 H Respiratory Rate 17 Blood Pressure 158/114 H 158/114 H Blood Pressure Mean 128 128 Pulse Ox 95 Oxygen Delivery Method Room Air Positive obese Nutritional Appearance: obese HEENT Reports TM's clear and moist mucous membranes HEENT Narrative: Mild gum edema around the left mandibular molars. Tenderness noted to the maxillary and mandibular molars on the left. No trismus. Posterior pharynx exam is normal. Tympanic Membrane ED: Yes TM's clear Eyes PERRL and EOMs intact bilaterally Neck supple Chest Wall inspection of chest normal and palpation of chest normal Resp normal respiratory effort and clear to auscultation bilaterally Cardio regular rate and regular rhythm GI non-tender Palpation: soft Back/Spine no CVA tenderness Extremity normal to inspection Neuro oriented x3 Sensorium / Orientation: alert Psych Mood & Affect: tearful Skin no rashes or lesions noted MDM MDM Treatment and Re-Evaluation Narrative: I explained to the patient that I do not have the ability to extract her teeth or help with dental pain other than antibiotics and pain medication. She did state that she was on clindamycin twice a day for a few days recently and that did seem to help her pain. She will be written for the correct dosing of clindamycin and started on this. I will give her an IM injection of Dilaudid 1 mg here to help with pain. She does have an allergy listed to morphine but has tolerated Dilaudid in the past. I encouraged her to follow-up with the dentist to see if she can be placed on a cancellation list. Discharge Plan Triage Chief Complaint: Dental ED Provider: Julia Mark Dx/Rx/DC Orders Clinical Impression: Odontalgia Instructions: ED Dental Pain Prescriptions: New clindamycin HCl 150 MG capsule 300 mg PO 4X/DAY Qty: 80 RF: 0 oxycodone-acetaminophen [Percocet] 5-325 mg tablet 1 tab PO Q6H PRN (Reason: pain) 3 Days Qty: 10 RF: 0 No Action hydrocodone-acetaminophen [hydrocodone-acetaminophen] 1 TABLET tablet 1 tab PO Q6H PRN PRN (Reason: Pain) 3 Days Qty: 12 RF: 0 ibuprofen 600 MG tablet 600 mg PO Q8H PRN PRN (Reason: pain) Qty: 20 RF: 0 Primary Care Provider: Care Physician,No Primary Referrals: Care Physician,No Primary [Primary Care Provider] - Activity Restrictions/Additional Instructions: Please follow-up with your dentist as soon as possible. Disposition Disposition: Home, Self Care
[2022-01-02] MEDS: Clindamycin HCl 150 MG Capsule 300 MG PO (03:46)
[2022-01-02] MEDS: HYDROmorphone 1 MG/ML Syringe IM (03:47)
[2022-01-02 04:12] VITALS: BP 158/99; PULSE 81; RESP 15; O2SAT 97
== END 2022-01-02 04:16 | disposition home or self-care (01) ==
PROVIDERS: Emergency Provider Emergency Medicine; Visit Provider Emergency Medicine
DX: K08.89 Other specified disorders of teeth and supporting structures (principal); F17.210 Nicotine dependence, cigarettes, uncomplicated; E66.9 Obesity, unspecified
CPT/HCPCS: 96372; 99282

== ENCOUNTER 2022-01-23 17:21 | Emergency (ER) | payer MEDICAID, SELFPAY ==
[2022-01-23 17:22] VITALS: BP 148/97; PULSE 92; RESP 16; TEMP 37.3; O2SAT 99; BMI 36.9
[2022-01-23] MEDS: Clindamycin HCl 150 MG Capsule 300 MG PO (18:09)
--- NOTE | 2022-01-23 18:09 | ED.VIS.DENTA ---
HPI History of Present Illness Chief Complaint: Dental Narrative Narrative: Patient presents with pain in her left upper jaw and left lower jaw that she has had for months. She states she has been to 7 or 8 different dentists who do not take her insurance. She states that she supposed to have 4 teeth extracted in her left upper jaw and 4 teeth in her left lower jaw, but will cost her $1500 and she cannot afford it. She has been taking naproxen, Motrin, and Tylenol without relief. She continues to smoke cigarettes. She states she has been on 3 different antibiotics in the past over the past few months. She presents because of the continued pain in her left upper and lower jaws. She denies any jaw swelling. No fevers or chills. No difficulty swallowing. PFSH PFS Medical History Bipolar disorder Home Medications hydrocodone-acetaminophen 1 tab PO Q6H PRN PRN 3 Days #12 tablet 12/30/21 [Rx Last Taken Unknown] ibuprofen 600 mg PO Q8H PRN PRN #20 tablet 12/30/21 [Rx Last Taken Unknown] clindamycin HCl 300 mg PO 4X/DAY #80 cap 01/02/22 [Rx Last Taken Unknown] oxycodone-acetaminophen [Percocet] 1 tab PO Q6H PRN 3 Days #10 tab 01/02/22 [Rx Last Taken Unknown] clindamycin HCl [Cleocin HCl] 300 mg PO Q6H #40 cap 01/23/22 [Rx Last Taken Unknown] naproxen [Naprosyn] 500 mg PO BID PRN #20 tab 01/23/22 [Rx Last Taken Unknown] Allergy/AdvReac Type Severity Reaction Status Date / Time morphine Allergy Rash Verified 01/23/22 17:22 ibuprofen AdvReac Nausea/Vom/ Verified 01/23/22 17:22 Diarrhea Surgical History Hx of appendectomy Hx of tonsillectomy Social History Smoking Status: Current every day smoker tobacco type: cigarettes ROS ROS ED ROS Narrative Constitutional: No fever, no chills. HEENT: No sore throat. No neck pain. No loss of vision. No rhinorrhea. Positive dental pain. Left upper and lower jaw pain. Cardiovascular: No chest pain. No palpitations. No pedal edema. Respiratory: No cough, no shortness of breath. Abdominal: No abdominal pain. No nausea. No vomiting. Genitourinary: No dysuria. No hematuria. Musculoskeletal: No myalgias. No arthralgias. Neurologic: No headaches. No dizziness. No lightheadedness. Skin: No rash. No change in color. Psychiatric: No depression. No anxiety. EXAM Physical Exam Narrative Exam Narrative: Afebrile. Vital signs noted. HEENT: Normocephalic. Atraumatic. PERRL, EOMI. Neck soft and supple. No point tenderness or step off. Positive tenderness to percussion of teeth in left upper and lower jaw mainly in the molars. No drooling. No Justen angina. Airway patent. No facial swelling or erythema. Cardiovascular: Regular rate and rhythm. No murmurs, rubs, or gallops appreciated. Respiratory: No tachypnea. Lungs clear to auscultation bilaterally. Gastrointestinal: Abdomen soft, nontender, with normoactive bowel sounds. No rebound or guarding. Neurological: Awake. Alert. Nonfocal, nonlateralizing. Skin: No rash. Normal color. No pallor. Musculoskeletal: No pedal edema. Full range of motion extremities. Const Vital Signs: 01/23/22 17:22 Temperature 99.2 F H Temperature Source Temporal Pulse Rate 92 Respiratory Rate 16 Blood Pressure 148/97 H Blood Pressure Mean 114 Pulse Ox 99 Oxygen Delivery Method Room Air MDM MDM MDM Narrative Medical decision making narrative: Patient will be given prescriptions for clindamycin, and naproxen which she has been tolerating [id number]. She was given a dental referral sheet. Smoking cessation was discussed. I do not feel laboratory work or imaging is indicated. I feel she can be discharged safely home with follow-up. Disposition is discharged home in stable condition. Return instructions were reviewed. Discharge Plan Triage Chief Complaint: Dental ED Provider: Tomi Pierre Dx/Rx/DC Orders Clinical Impression: Pain, dental, Jaw pain Instructions: ED Dental Pain, ED Dental Abscess Prescriptions: New clindamycin HCl [Cleocin HCl] 300 mg capsule 300 mg PO Q6H Qty: 40 RF: 0 naproxen [Naprosyn] 500 mg tablet 500 mg PO BID PRN (Reason: pain) Qty: 20 RF: 0 No Action hydrocodone-acetaminophen [hydrocodone-acetaminophen] 1 TABLET tablet 1 tab PO Q6H PRN PRN (Reason: Pain) 3 Days Qty: 12 RF: 0 ibuprofen 600 MG tablet 600 mg PO Q8H PRN PRN (Reason: pain) Qty: 20 RF: 0 clindamycin HCl 150 MG capsule 300 mg PO 4X/DAY Qty: 80 RF: 0 oxycodone-acetaminophen [Percocet] 5-325 mg tablet 1 tab PO Q6H PRN (Reason: pain) 3 Days Qty: 10 RF: 0 Primary Care Provider: Care Physician,No Primary Referrals: Care Physician,No Primary [Primary Care Provider] - Activity Restrictions/Additional Instructions: Stop smoking. Follow-up with a dentist as soon as possible. Try other places on the resource list. Disposition Disposition: Home, Self Care Discharge Date/Time: 01/23/22 18:58
== END 2022-01-23 18:58 | disposition home or self-care (01) ==
PROVIDERS: Emergency Provider Emergency Medicine; Visit Provider Emergency Medicine
DX: K08.89 Other specified disorders of teeth and supporting structures (principal); R68.84 Jaw pain; F17.210 Nicotine dependence, cigarettes, uncomplicated
CPT/HCPCS: 99282

== ENCOUNTER 2022-08-14 21:53 | Emergency (ER) | payer MEDICAID, SELFPAY ==
[2022-08-14 21:54] VITALS: BP 138/86; PULSE 89; RESP 15; TEMP 36.7; O2SAT 96; BMI 35.9
--- NOTE | 2022-08-14 22:55 | EDS_ITS ---
HPI History of Present Illness Chief Complaint: Ear Problem Informant: patient Narrative Narrative: Patient states that for couple days she has heard a bubbling sound in her left ear but does not really hurt. Hearing was not really decreased. Today she took a nap because it was little sore. When she woke up there was some green discharge on the pillow. No blood. She states she still has the bubbling sound. No fevers or chills. No headaches. No trauma. She does not use Q- tips. Per patient, and she denies any allergies. [facility] Medical History Bipolar disorder Home Medications amoxicillin 500 mg tablet 500 mg PO TID #30 tabs 08/14/22 [Rx Last Taken Unknown] Allergy/AdvReac Type Severity Reaction Status Date / Time morphine Allergy Rash Verified 08/14/22 21:54 ibuprofen AdvReac Nausea/Vom/ Verified 08/14/22 21:54 Diarrhea Surgical History Hx of appendectomy Hx of tonsillectomy Social History Smoking Status: Former smoker ROS ROS ED Constitutional Constitutional ED: Denies chills or fever(s) Eyes Eyes: Denies blurry vision, change in vision or diplopia ENT ENT ED: Reports ear pain; Denies rhinorrhea or sore throat Cardiovascular Cardiovascular: Denies chest pain Respiratory/Chest Respiratory/Chest: Denies cough or dyspnea Gastrointestinal Gastrointestinal: Denies nausea or vomiting Genitourinary Genitourinary ED: Denies dysuria Musculoskeletal Musculoskeletal: Denies neck pain Integumentary Denies rash Neurologic Neurologic: Denies headache(s), paresthesias or weakness Endocrine Endocrinology: Denies polydipsia or polyuria Hematologic/Lymphatic Hematologic/Lymphatic: Denies lymphadenopathy Allergic/Immunologic Allergic/Immunologic ED: Denies mouth swelling, tongue swelling or urticaria EXAM Physical Exam Const Vital Signs: 08/14/22 21:54 Temperature 98.0 F Temperature Source Temporal Pulse Rate 89 Respiratory Rate 15 Blood Pressure 138/86 H Blood Pressure Mean 103 Pulse Ox 96 Oxygen Delivery Method Room Air Positive well nourished and well developed Constitutional Narrative: Patient sitting up on bed. No acute distress. She was typing on her phone. General Appearance ED: well developed and NAD; Negative for pallor HEENT Reports moist mucous membranes HEENT Narrative: No external swelling or erythema. No rashes. Negative Ng sign. The ear itself is not red or swollen. The canal does not look swollen. The eardrum itself does look quite red though. There is a little bit of discharge in the canal. I do not see a definitive perforation although I am suspicious that is present. Her drum is quite red with drainage in the canal is normal indicating not likely being a otitis externa. No blood is seen. Eyes EOMs intact bilaterally Neck no lymphadenopathy, supple and no JVD Neck Narrative: No erythema or lymphadenopathy Resp normal respiratory effort and clear to auscultation bilaterally Cardio regular rate and regular rhythm GI normal to inspection, nondistended, normoactive bowel sounds Neuro Sensorium / Orientation: alert Psych mental status grossly normal Skin no rashes or lesions noted Skin Narrative: No vesicles or rash General Skin Exam: Negative for jaundice or pallor MDM MDM MDM Narrative Medical decision making narrative: We will treat this as an otitis media. Her drum is quite red and irritated. She has had drainage. My suspicion is she had perforation. I would like to avoid drops and I do not see signs of an externa. Mastoid is not tenderness. Nurse was getting give the patient medicine. But she was complaining of some nausea so we will give her Zofran here. Discharge Plan Triage Chief Complaint: Ear Problem ED Provider: Jose Light Dx/Rx/DC Orders Clinical Impression: Otitis media Instructions: ED Otitis Media Antibiotic ... Prescriptions: New amoxicillin 500 mg tablet 500 mg PO TID Qty: 30 0RF Primary Care Provider: Care Physician,No Primary Referrals: Abe Richard MD [Med Staff - Active Staff] - 1 Week if not improving Care Physician,No Primary [Primary Care Provider] - Disposition Disposition: Home, Self Care
[2022-08-14] MEDS: HYDROcodone Bitartrate/Apap 5/325 Tablet PO (23:41)
[2022-08-14] MEDS: AMOXICILLIN 500 MG CAPSULE PO (23:41)
[2022-08-14] MEDS: Ondansetron ODT 4 MG Tablet PO (23:41)
== END 2022-08-15 00:33 | disposition home or self-care (01) ==
PROVIDERS: Emergency Provider Emergency Medicine; Visit Provider Emergency Medicine
DX: H66.90 Otitis media, unspecified, unspecified ear (principal); F31.9 Bipolar disorder, unspecified; Z87.891 Personal history of nicotine dependence
CPT/HCPCS: 99283

== ENCOUNTER 2023-05-15 00:55 | Emergency (ER) | payer MEDICAID, SELFPAY ==
[2023-05-15 00:56] VITALS: BP 140/87; PULSE 77; RESP 16; TEMP 36.4; O2SAT 98; BMI 37.8
--- NOTE | 2023-05-15 01:27 | ED.VIS.DENTA ---
HPI History of Present Illness Chief Complaint: Dental Informant: patient Narrative Narrative: Patient presents with right mandibular dental pain that started 2 hours ago. Started while she was eating something that created a break in the affected tooth. She took Tylenol but it did not help and so she came here. No systemic symptoms. Pain radiates back toward her right ear. Denies bleeding. PFSH PFS Medical History Bipolar disorder Home Medications amoxicillin 500 mg tablet 500 mg PO TID #30 tabs 05/15/23 [Rx Last Taken Unknown] hydrocodone-acetaminophen 5-325mg 5mg-325mg 1 tab PO Q6H PRN PRN Pain 3 days #12 TABLETS 05/15/23 [Rx Last Taken Unknown] Allergy/AdvReac Type Severity Reaction Status Date / Time morphine Allergy Rash Verified 08/14/22 21:54 ibuprofen AdvReac Nausea/Vom/ Verified 08/14/22 21:54 Diarrhea Surgical History Hx of appendectomy Hx of tonsillectomy Social History Smoking Status: Current every day smoker tobacco type: cigarettes ROS ROS ED Constitutional Constitutional ED: Denies chills or fever(s) Eyes Eyes: Denies change in vision or double vision ENT ENT ED: Reports dental pain; Denies sinus pain or throat swelling Cardiovascular Cardiovascular: Denies chest pain or palpitations Respiratory/Chest Respiratory/Chest: Denies cough or dyspnea Integumentary Denies abscess or rash Neurologic Neurologic: Denies headache(s), paresthesias or weakness EXAM Physical Exam Const Vital Signs: 05/15/23 00:56 Temperature 97.6 F L Temperature Source Temporal Pulse Rate 77 Respiratory Rate 16 Blood Pressure 140/87 H Blood Pressure Mean 104 Pulse Ox 98 Oxygen Delivery Method Room Air Positive well nourished and well developed General Appearance ED: well developed and NAD HEENT HEENT Narrative: Tooth #31 is partially decayed with cavity evident, and tender. No evidence of gingivitis, no bleeding, no discharge. No trismus. No abscess. Tongue normal no elevation. Face and Sinus: sinuses nontender Throat: posterior oropharynx normal Eyes PERRL and EOMs intact bilaterally Neck no lymphadenopathy and supple Resp normal respiratory effort Neuro oriented x3 and CN's II-XII intact bilaterally Sensorium / Orientation: alert Gait (Neuro): normal gait Psych mental status grossly normal and thought process normal Skin no rashes or lesions noted and no wounds MDM MDM MDM Narrative Medical decision making narrative: Attempted placing temporary filling, as I was doing this to tooth started disintegrating and another of the tooth came out of her mouth. This was removed in its entirety without aspiration. I was able to pack the outside surface of the tooth and [place] temporary filling, unclear if this will solidify and hold because it seems to be a big part of the tooth now where there is a deficit. She was given [place] prophylactic amoxicillin and a dental referral sheet. Discharge Plan Triage Chief Complaint: Dental ED Provider: Phong Bravo Dx/Rx/DC Orders Clinical Impression: Pain due to dental caries Instructions: ED Dental Pain, ED Dental Cavity Prescriptions: New hydrocodone-acetaminophen [hydrocodone-acetaminophen] 5-325 mg tablet 1 tab PO Q6H PRN PRN (Reason: Pain) 3 Days Qty: 12 0RF amoxicillin 500 mg tablet 500 mg PO TID Qty: 30 0RF Primary Care Provider: Care Physician,No Primary Referrals: Dentist,Your [STAFF PHYSICIAN] - As soon as possible (see resource list attached if needed) Disposition Disposition: Home, Self Care
[2023-05-15] MEDS: AMOXICILLIN 500 MG CAPSULE PO (01:41)
[2023-05-15] MEDS: HYDROcodone Bitartrate/Apap 5/325 Tablet PO (01:41)
== END 2023-05-15 01:55 | disposition home or self-care (01) ==
PROVIDERS: Emergency Provider Emergency Medicine; Visit Provider Emergency Medicine
DX: K02.9 Dental caries, unspecified (principal); K08.89 Other specified disorders of teeth and supporting structures; F17.210 Nicotine dependence, cigarettes, uncomplicated
CPT/HCPCS: 99283

== ENCOUNTER 2023-11-17 06:09 | Emergency (ER) | payer MEDICAID, SELFPAY ==
[2023-11-17 06:10] VITALS: BP 119/78; PULSE 71; RESP 16; TEMP 36.4; O2SAT 96
[2023-11-17 06:29] LABS: Absolute Lymphocyte Count 4.68 X10^3/uL (0.83-4.51); Absolute Neutrophil Count 6.1 X10^3/uL (2.0-7.7); Basophil# 0.08 X10^3/uL; Basophil% 0.7 % (0-1); Eosinophil# 0.47 X10^3/uL; Eosinophils% 3.9 % (0-5); Hematocrit 38.9 % (37-47); Lymphocyte # 4.68 X10^3/ul (0.83-4.51); Lymphocyte % 39.2 % (19-41); Mean Corp Hgb Conc 33.4 g/dL (32-36); Mean Corpuscular Hgb 30.1 pg (27.0-32.0); Mean Platelet Vol. 10.1 fl (6.2-12.0); Monocyte# 0.64 X10^3/uL; Monocyte% 5.4 % (0-10); NRBC Flagged by Analyzer 0 % (0-5); Neutrophil # 6.05 X10^3/uL (2.7-7.7); Neutrophil % 50.5 % (47-70); Platelet Count 346 K/mm3 (150-450); RBC Distribution Width CV 13.5 % (11.6-14.6); RBC Distribution Width SD 44.9 fl (35.1-43.9); Red Blood Count 4.32 M/mm3 (4.2-5.4)
--- NOTE | 2023-11-17 06:29 | EDS_ITS ---
HPI HPI - GI History of Present Illness Chief Complaint: Abd Pain Informant: patient Abdominal Pain/Flank Pain Onset: Hours (2) Context: Gradual Onset Timing: Continuous Quality: Burning Location: Epigastric, RUQ and LUQ Worsened by: - (Drinking milk) Relieved by: - (Walking around) Nausea/Vomiting/Emesis GI Symptom: Positive for Nausea; Negative for Vomiting Diarrhea/Melena/Hematochezia GI Symptom: Negative for Diarrhea, Melena or Hematochezia Associated Symptoms Associated Symptoms: Negative for Dysuria, Frequency or Hematuria LMP: 1 week ago Narrative Narrative: Patient presents with abdominal pain that began 2 hours prior to arrival. Patient states it is gradually gotten worse. Patient states it is constant. Patient describes it as burning. Patient states it is over her upper abdomen. Patient states she drank some milk and this made it worse. Patient states milk normally helps her gastritis pain. Patient states it got better when she was up walking around. Patient admits to some nausea but denies any vomiting. Patient denies any diarrhea, melena, or hematochezia. Patient denies any dysuria, frequency, or hematuria. Patient states her last menstrual period was 1 week ago. [facility] Medical History Bipolar disorder Home Medications amoxicillin 500 mg tablet 500 mg PO TID #30 tabs 05/15/23 [Rx Last Taken Unknown] hydrocodone-acetaminophen 5-325mg 5mg-325mg 1 tab PO Q6H PRN PRN Pain 3 days #12 TABLETS 05/15/23 [Rx Last Taken Unknown] omeprazole 20 mg capsule,delayed release 20 mg PO DAILY #30 CAPSULES 11/17/23 [Rx Last Taken Unknown] Allergy/AdvReac Type Severity Reaction Status Date / Time morphine Allergy Rash Verified 11/17/23 06:09 ibuprofen AdvReac Nausea/Vom/ Verified 11/17/23 06:09 Diarrhea Surgical History Hx of appendectomy Hx of tonsillectomy Social History Smoking Status: Current every day smoker tobacco type: e-cigarettes ROS ROS ED Constitutional Constitutional ED: Reports chills and subjective; Denies fever(s) Eyes Eyes: Denies blurry vision or change in vision ENT ENT ED: Denies rhinorrhea or sore throat Cardiovascular Cardiovascular: Reports chest pain; Denies palpitations Respiratory/Chest Respiratory/Chest: Reports dyspnea; Denies cough Gastrointestinal Gastrointestinal: Reports abdominal pain and nausea; Denies vomiting Genitourinary Genitourinary ED: Denies dysuria or hematuria Musculoskeletal Musculoskeletal: Reports back pain; Denies neck pain Integumentary Denies abscess or rash Neurologic Neurologic: Denies headache(s) or weakness Allergic/Immunologic Allergic/Immunologic ED: Denies mouth swelling or urticaria EXAM Physical Exam Const Vital Signs: 11/17/23 06:10 Temperature 97.6 F L Temperature Source Oral Pulse Rate 71 Respiratory Rate 16 Blood Pressure 119/78 Blood Pressure Mean 91 Pulse Ox 96 Oxygen Delivery Method Room Air Positive well nourished and well developed General Appearance ED: well developed and NAD HEENT Reports moist mucous membranes Neck supple and no JVD Resp normal respiratory effort and clear to auscultation bilaterally Cardio regular rate and regular rhythm GI non-distended Palpation: soft and tender epigastric; Negative for guarding or rebound tenderness present Neuro CN's II-XII intact bilaterally, moves all extremities and no sensory deficits noted Sensorium / Orientation: alert Motor Exam: strength 5/5 throughout Psych mental status grossly normal MDM MDM MDM Narrative Medical decision making narrative: Differential diagnosis includes gastritis, gastroesophageal reflux disease, peptic ulcer disease, pancreatitis, cholecystitis, cholelithiasis, and viral illness. CBC will be obtained to assess for leukocytosis and anemia. Comprehensive metabolic profile will be obtained to assess for hepatic function, renal function, and electrolyte abnormality. Lipase will be obtained to assess for pancreatitis. Urinalysis will be obtained to assess for urinary tract infection. Serum hCG will be obtained to assess for . Lab Data Attestation: I reviewed the patient's lab results. Lab results narrative: CBC was reviewed. There is a slight leukocytosis of 12.0. The remainder is within normal limits. Comprehensive metabolic profile was reviewed and was within normal limits. Lipase was reviewed and was normal at 23. Serum hCG was reviewed and was negative. Urinalysis was reviewed. Leukocyte esterase was 100 with 5-10 white blood cells and 1+ bacteria. There were 5-10 squamous epithelial cells. Labs: Laboratory Results - last 24 hr 11/17/23 11/17/23 06:22 07:35 WBC 12.0 H RBC 4.32 Hgb 13.0 Hct 38.9 MCV 90.0 MCH 30.1 MCHC 33.4 RDW Std Deviation 44.9 H RDW Coeff of Melanie 13.5 Plt Count 346 MPV 10.1 Immature Gran % (Auto) 0.300 Neut % (Auto) 50.5 Lymph % (Auto) 39.2 [place] % (Auto) 5.4 Eos % (Auto) 3.9 Baso % (Auto) 0.7 Absolute Neuts (auto) 6.1 Absolute Lymphs (auto) 4.68 H Nucleated RBC % 0 Sodium 142 Potassium 3.9 Chloride 109 H Carbon Dioxide 23.0 Anion Gap 10 BUN 7 Creatinine 0.64 Est GFR (MDRD) Af Amer 147 Est GFR (MDRD) Non-Af 122 BUN/Creatinine Ratio 11.0 Glucose 104 Calcium 8.8 Total Bilirubin 0.40 Direct Bilirubin 0.07 AST 15 ALT 20 Alkaline Phosphatase 60 Total Protein 6.7 Albumin 3.4 Globulin 3.3 Lipase 23 Serum , Qual NEGATIVE Urine Color Yellow Urine Clarity Cloudy Urine pH 6.0 Ur Specific [place] 1.015 Urine Protein 30 H Urine Glucose (UA) Normal Urine Ketones Negative Urine Occult Blood 10 H Urine Nitrite Negative Urine Bilirubin Negative Urine Urobilinogen Normal Ur Leukocyte Esterase 100 H Urine RBC 0 SEEN Urine WBC 5-10 SEEN Ur Squamous Epith Cells 5-10 SEEN Urine Bacteria 1+ Urine Mucus 0 SEEN Additional Tests and Interventions Additional Tests or Interventions: Because the urinalysis appeared to be contaminated, urine culture was ordered. Treatment and Re-Evaluation :: Smoking cessation was discussed. Patient was given IV fluids and Zofran. Patient is allergic to morphine and ibuprofen. Patient was given a dose of Bentyl. Patient was given a GI cocktail. Patient is resting comfortably on reevaluation. Patient was texting on her phone. Patient was advised of her findings. Patient was given a prescription for omeprazole. Patient was instructed to follow-up with her primary care physician in 5 to 7 days. Patient understood and was agreeable with the plan. All questions were answered. Discharge Plan Triage Chief Complaint: Abd Pain ED Provider: Darek Steele Dx/Rx/DC Orders Clinical Impression: Nicotine dependence, Epigastric abdominal pain Instructions: E Cigarettes and Vaping, ED Epigastric Pain Uncertain Cause Prescriptions: New omeprazole [omeprazole] 20 mg capsule,delayed release(DR/EC) 20 mg PO DAILY Qty: 30 0RF No Action hydrocodone-acetaminophen [hydrocodone-acetaminophen] 5-325 mg tablet 1 tab PO Q6H PRN PRN (Reason: Pain) 3 Days Qty: 12 0RF amoxicillin 500 mg tablet 500 mg PO TID Qty: 30 0RF Primary Care Provider: Care Physician,No Primary Referrals: Meri Raphael MD [Med Staff - Technical Writing Lead/Mgr] - 5-7 Days Care Physician,No Primary [Primary Care Provider] - Disposition Disposition: Home, Self Care
[2023-11-17 06:48] LABS: Anion Gap 10 (5-15); BUN 7 mg/dL (7-18); Calcium,Total 8.8 mg/dL (8.5-10.1); Chloride 109 mmol/L (98-107); Creatinine, Serum 0.64 mg/dL (0.55-1.02); EST Glomerular Filtration Rate 122 mL/min (>60); Est Glom Filt Rate - Afr Amer 147 mL/min (>60); Glucose 104 mg/dL (74-106); Potassium 3.9 mmol/L (3.5-5.1); Sodium Level 142 mmol/L (136-145)
[2023-11-17 06:55] LABS: Internal QC Validated? YES +Cl - CLEAR BKGD; Pregnancy, Serum, hCG Quali. NEGATIVE Negative; Record Kit Lot#, Serum Preg. 718086
[2023-11-17] MEDS: 0.9% Normal Saline (1000mL) 1,000 ML 1000 ML IV (07:03)
[2023-11-17] MEDS: Ondansetron 4 MG/2 ML Vial IV (07:03)
[2023-11-17] MEDS: Dicyclomine 20 MG/2 ML Vial IM (07:03)
[2023-11-17] MEDS: Mag Hydrox/Al Hydrox/Simeth 30 ML UDC PO (07:03)
[2023-11-17 07:11] LABS: AST(SGOT) 15 U/L (15-37); Alanine Aminotransfer ALT/SGPT 20 U/L (13-56); Albumin, Serum 3.4 g/dL (3.2-5.0); Alkaline Phosphatase 60 U/L (45-117); Bilirubin, Direct 0.07 mg/dL (0.00-0.30); Globulin 3.3 g/dL (2.2-4.2); Lipase 23 U/L (13-75); Protein, Total 6.7 g/dL (6.4-8.2)
--- OUTSIDE RECORDS SUMMARY | 2023-11-17 07:28 | XMS RPT_ITS | CCD ---
Author Name Unknown Address [address] [place] [address] Organization [facility] Care Team Providers Care Menagerie Caretaker Name Role Phone Caty Oliver DO Primary Care Provider [phone] CATY OLIVER Primary Care Unavailable CATY OLIVER Primary Care Unavailable JUAN JOSHI Attending Unavailable JUAN JOSHI Primary Care Unavailable JUAN JOSHI Admitting Unavailable Allergies Allergy Classification Reported Allergen(s) Allergy Type Date of Onset Reaction(s) Facility (3 sources) Ibuprofen; Translations: [IBUPROFEN] Drug Allergy 06-24-2016 Intolerance [facility] (3 sources) Morphine; Translations: [MORPHINE] Drug Allergy 08-04-2019 Hives [facility] Work Phone: Medications Current Medications Medication Drug Class(es) Dates Sig (Normalized) Sig (Original) amoxicillin 875 mg / clavulanate 125 mg oral tablet (2 sources) Penicillin-class Antibacterial Start: 03-04-2023 End: 03-11-2023 take 1 tablet by mouth twice daily amoxicillin-clav ulanic acid (AUGMENTIN) 875-125 mg per tablet Indications: ETD (Eustachian tube dysfunction), right Take 1 tablet by mouth twice daily for 7 days. 14 tablet 0 03/04/2023 03/11/2023 Active Completed/Discontinued Medications Medication Drug Class(es) Dates Sig (Normalized) Sig (Original) fluticasone propionate 0.05 mg/actuat metered dose nasal spray (1 source) Corticosteroid Start: 03-04-2023 take 2 spray(s) by mouth once daily fluticasone (FLONASE) 50 mcg/actuation nasal spray Indications: URI, acute , ETD (Eustachian tube dysfunction), right Use 2 Sprays in each nostril once daily. Rinse mouth after use. 1 Each 0 03/04/2023 Active Problems Active Problems Problem Classification Problem Date Documented Da te Episodic/Chronic Other upper respiratory disease (2 sources) Allergic rhinitis; Translations: [Allergic rhinitis, unspecified] Onset: 12-31-2011 12-31-2011 Chronic Other upper respiratory infections (2 sources) Acute upper respiratory infection; Translations: [Acute upper respiratory infection, unspecified] Episodic Otitis media and related conditions (2 sources) Acute left otitis media; Translations: [Otitis media, unspecified, left ear] Episodic Past or Other Problems Problem Classification Problem Date Documented Da te Episodic/Chronic Other complications of (2 sources) Maternal tobacco use; Translations: [Smoking (tobacco) complicating , unspecified trimester] Onset: 08-04-2019 08-04-2019 Episodic Other congenital anomalies (2 sources) H/O: congenital anomaly; Translations: [Personal history of other (corrected) congenital malformations] Onset: 08-04-2019 08-04-2019 Episodic Screening and history of mental health and substance abuse codes (2 sources) H/O: manic depressive disorder; Translations: [Personal history of other mental and behavioral disorders] Onset: 08-04-2019 08-04-2019 Episodic Substance-related disorders (2 sources) Marijuana user; Translations: [Cannabis use, unspecified, uncomplicated] Onset: 08-04-2019 08-23-2019 Episodic Results Test Name Value Interpretation Reference Range Facil ity Vital Signs Date Time Vital Sign Value Performing Clinician Mandi jones 03-04-2023 12:39-0400 Body temperature 98.29 [degF] Km Bauer APRN.CNP Work Phone: [facility] 03-04-2023 12:39-0400 Body weight 99.79 kg Km Bauer APRN.CNP Work Phone: [facility] 03-04-2023 12:39-0400 Diastolic blood pressure 82 mm[Hg] Km Bauer APRN.CNP Work Phone: [facility] 03-04-2023 12:39-0400 Heart rate 88 /min Km Juancarlos CONSULTANT.ORDER DESK CLERK Work Phone: [facility] 03-04-2023 12:39-0400 Respiratory rate 16 /min Km Juancarlos CONSULTANT.ORDER DESK CLERK Work Phone: [facility] 03-04-2023 12:39-0400 SaO2% (BldA) [Mass fraction] 98 % Km Juancarlos CONSULTANT.ORDER DESK CLERK Work Phone: [facility] 03-04-2023 12:39-0400 Systolic blood pressure 120 mm[Hg] Km Juancarlos CONSULTANT.ORDER DESK CLERK Work Phone: [facility] 07-11-2022 12:26-0400 Body temperature 98.4 [degF] Celeste Le CONSULTANT.ORDER DESK CLERK Work Phone: [facility] 07-11-2022 12:26-0400 Body weight 100.88 kg Celeste Le CONSULTANT.ORDER DESK CLERK Work Phone: [facility] 07-11-2022 12:26-0400 Diastolic blood pressure 70 mm[Hg] Celeste Le CONSULTANT.ORDER DESK CLERK Work Phone: [facility] 07-11-2022 12:26-0400 Heart rate 76 /min Celeste Le CONSULTANT.ORDER DESK CLERK Work Phone: [facility] 07-11-2022 12:26-0400 Respiratory rate 18 /min Celeste Le CONSULTANT.ORDER DESK CLERK Work Phone: [facility] 07-11-2022 12:26-0400 SaO2% (BldA) [Mass fraction] 97 % Celeste Le CONSULTANT.ORDER DESK CLERK Work Phone: [facility] 07-11-2022 12:26-0400 Systolic blood pressure 118 mm[Hg] Celeste Le CONSULTANT.ORDER DESK CLERK Work Phone: [facility] Encounters Encounter Date Encounter Type Care Provider Facility Start: 03-29-2023 End: 03-29-2023 Emergency department patient visit JUAN JOSHI [facility] Start: 03-04-2023 End: 03-04-2023 ambulatory CATY OLIVER Facility:[facility] Start: 03-04-2023 End: 03-04-2023 Patient encounter procedure Km Bauer DAVID.ENRIQUE Work Phone: [facility] Care Plan of Treatment Date Care Activity Detail Author Start: 12-19-2029 Urine microalbumin profile DTA P,TDAP,TD (2 - Td or Tdap) [facility] Start: 05-15-2023 Influenza vaccination INFLUENZA (Sea son Ended) [facility] Start: 09-14-2022 DEPRESSION ASSESSMENT DEPRESSION ASS ESSMENT [facility] Start: 05-15-2022 Influenza vaccination INFLUENZA (#1) [facility] Start: 09-14-2021 DEPRESSION ASSESSMENT DEPRESSION ASS ESSMENT [facility] Start: 02-06-2021 CHLAMYDIA SCREENING (18-24) CHLAMYDIA SCREENING (18-24) [facility] Start: 02-06-2021 GC (GONORRHEA) SCREE BRANDI (18-24) GC (GONORRHEA) SCREENING (18-24) [facility] Start: 2020 PAP TESTING PAP TESTING [facility] Start: 2013 PEDS TO ADULT TRANSI TION ANNUAL ASSESSMENT PEDS TO ADULT TRANSITION ANNUAL ASSESSMENT [facility] Start: 2011 PEDS TO ADULT TRANSI TION INITIAL DISCUSSION PEDS TO ADULT TRANSITION INITIAL DISCUSSION [facility] Start: 2010 HPV VACCINE (1 - 2-d ose series) HPV VACCINE (1 - 2-dose series) [facility] Start: 2009 MENINGOCOCCAL B: Con commercial crabber based on risk (1 of 2 - Risk Bexsero 2-dose series) MENINGOCOCCAL B: Consider based on risk (1 of 2 - Risk Bexsero 2-dose series) [facility] Start: 2008 HPV VACCINE (1 - 2-d ose series) HPV VACCINE (1 - 2-dose series) [facility] Start: 2005 PNEUMOCOCCAL (1 - PCV) PNEUMOCOCCAL (1 - PCV) [facility] Start: 1999 COVID-19 VACCINE (#1) COVID-19 VACCI NE (#1) [facility] Start: 1999 HEPATITIS B (1 of 3 - 3-dose series) HEPATITIS B (1 of 3 - 3-dose series) [facility] Immunizations Immunization Date Immunization Notes Care Provider Fa tedty 12-20-2019 tetanus toxoid, redu alison diphtheria toxoid, and acellular pertussis vaccine, adsorbed Celeste Le APRN.CNP Work Phone: [facility] Payers Date Payer Category Payer Medicaid [id number] 2019 Medicaid [id number] 2019 Medicaid [id number] 1999 Unknown [id number] Social History Date Type Detail Facility Start: 07-11-2022 Tobacco smoking stat [facility] Smokes tobacco daily [facility] History of tobacco use Cigarette Smoker [facility] Start: 07-11-2022 Cigarettes smoked current (pack per day) - Reported 0.5 [facility] Start: 07-11-2022 Tobacco use and exposure Smokeless tobacco non-user [facility] Start: 07-11-2022 End: 03-04-2023 Alcohol intake Ex-drinker (finding) [facility] Start: 08-04-2019 History SDOH Alcohol Frequency 3 [facility] Start: 08-04-2019 History SDOH Financial 5 [facility] Start: 08-04-2019 History SDOH Food Worry 1 [facility] Start: 08-04-2019 History SDOH Transpo rt Non-Med 2 [facility] Start: 08-04-2019 Education 10 [facility] Start: 1999 Sex Assigned At Not on file [facility] Start: 07-01-2022 End: 07-11-2022 Exposure to SARS-CoV-2 (event) Not sure [facility] Work Phone: Progress note 03-04-2023 Note Date & Type Note Facility 03-04-2023 Note HNO ID: [id number] Author: Km Bauer APRN.ENRIQUE Service: ? Author Type: Nurse Practitioner Type: Progress Notes Filed: 03/04/2023 1:23 PM Note Text: Subjective HPI HPI Dequan Mazariegos is a 22 year old female who presents today for CC of cough, st, congestion, ear pain. This started 1 day ago. Has tried otc medication for relief. Symptoms are worsened by nothing. Risk factors no sick exposures. Smoker. Denies possibility of being . .Patient presents with: Ear Pain: Bilateral, with sore throat, congestion, headache, difficulty breathing, loss of voice started yesterday PAST MEDICAL HISTORY Diagnosis Date Complication of anesthesia agitated and violent coming out of general anesthesia Depression with anxiety fracture age 1 right arm- jumping on couch PAST SURGICAL HISTORY Procedure Laterality Date APPENDECTOMY MIRENA IUD 04/24/2020 placed without incident TONSILLECTOMY AND ADENOIDECTOMY HX ALLERGIES Ibuprofen and Morphine MEDICATIONS levonorgestrel (MIRENA) 20 mcg/24 hours (5 yrs) 52 mg IUD 1 Each by INTRAUTERINE route as directed. predniSONE (DELTASONE) 10 mg tablet Take 4 tabs daily for 3 days, then 2 tabs daily for 3 days, then 1 tab daily for 3 days with food. (Patient not taking: Reported on 03/04/2023) FAMILY HISTORY Problem Relation Age of Onset Cancer Mother lung cancer Cancer Father No Known Problems Sister No Known Problems Brother Heart Maternal Grandmother Cancer Maternal Grandfather No Known Problems Sister No Known Problems Sister No Known Problems Brother Social History Tobacco Use Smoking status: Every Day Packs/day: 0.50 Years: 6.00 Pack years: 3.00 Types: Cigarettes Smokeless tobacco: Never Vaping Use Vaping Use: Former Substance Use Topics Alcohol use: Not Currently Drug use: Yes Types: Marijuana Review of Systems Constitutional: Negative for fever. HENT: Positive for congestion, ear pain and sore throat. Negative for ear discharge and nosebleeds. Respiratory: Positive for cough. Negative for shortness of breath and wheezing. Cardiovascular: Negative for chest pain. Gastrointestinal: Negative for diarrhea and vomiting. Musculoskeletal: Negative for neck pain. Skin: Negative for itching and rash. Objective Blood pressure 120/82, pulse 88, temperature 36.8 ?C (98.3 ?F), resp. rate 16, weight 99.8 kg (220 lb), last menstrual period 05/21/2019, SpO2 98 %. Physical Exam Constitutional: General: She is not in acute distress. Appearance: She is not toxic-appearing or diaphoretic. HENT: Head: Normocephalic and atraumatic. Right Ear: Hearing, ear canal and external ear normal. Tympanic membrane is bulging. Tympanic membrane is not perforated or erythematous. Left Ear: Hearing, tympanic membrane, ear canal and external ear normal. Tympanic membrane is not perforated, erythematous or bulging. Nose: Nose normal. Mouth/Throat: Pharynx: Uvula midline. No pharyngeal swelling, oropharyngeal exudate, posterior oropharyngeal erythema or uvula swelling. Eyes: General: Lids are normal. No scleral icterus. Right eye: No discharge. Left eye: No discharge. Conjunctiva/sclera: Conjunctivae normal. Pupils: Pupils are equal, round, and reactive to light. Neck: Trachea: Trachea normal. Cardiovascular: Rate and Rhythm: Normal rate and regular rhythm. Heart sounds: Normal heart sounds. Pulmonary: Effort: Pulmonary effort is normal. Breath sounds: Normal breath sounds. Musculoskeletal: Cervical back: Normal range of motion and neck supple. Lymphadenopathy: Cervical: No cervical adenopathy. Right cervical: No superficial cervical adenopathy. Left cervical: No superficial cervical adenopathy. Skin: Findings: No rash. Neurological: Mental Status: She is alert and oriented to person, place, and time. ASSESSMENT/PLAN: 1. URI, acute - ICD9: 465.9, ICD10: J06.9 (primary diagnosis) - Discussed viral etiology and rationale for treatment. - Symptomatic treatment with prn analgesia - Supportive care with fluids and rest - Follow up in 3-5 days if symptoms persist or sooner if worsening of symptoms - PREDNISONE 20 MG TABLET - FLUTICASONE PROPIONATE 50 MCG/ACTUATION NASAL SPRAY,SUSPENSION 2. ETD (Eustachian tube dysfunction), right - ICD9: 381.81, ICD10: H69.81 Try steroid first, s/s worsen fill/take atb -use medication as prescribed -follow up if symptoms persist, worsen, change - PREDNISONE 20 MG TABLET - FLUTICASONE PROPIONATE 50 MCG/ACTUATION NASAL SPRAY,SUSPENSION - AMOXICILLIN 875 MG-POTASSIUM CLAVULANATE 125 MG TABLET Km Bauer APRN.ORDER DESK CLERK [facility] History of Present illness Narrative 03-04-2023 Km Bauer APRN.ENRIQUE - 03/04/2023 12:49 PM EDT Note Date & Type Note Facility 03-04-2023 History of Presen t illness Narrative Subjective HPI HPI Dequan Mazariegos is a 22 year old female who presents today for CC of cough, st, congestion, ear pain. This started 1 day ago. Has tried otc medication for relief. Symptoms are worsened by nothing. Risk factors no sick exposures. Smoker. Denies possibility of being . .Patient presents with: Ear Pain: Bilateral, with sore throat, congestion, headache, difficulty breathing, loss of voice started yesterday PAST MEDICAL HISTORY Diagnosis Date Complication of anesthesia agitated and violent coming out of general anesthesia Depression with anxiety fracture age 1 right arm- jumping on couch PAST SURGICAL HISTORY Procedure Laterality Date APPENDECTOMY MIRENA IUD 04/24/2020 placed without incident TONSILLECTOMY AND ADENOIDECTOMY HX ALLERGIES Ibuprofen and Morphine MEDICATIONS levonorgestrel (MIRENA) 20 mcg/24 hours (5 yrs) 52 mg IUD 1 Each by INTRAUTERINE route as directed. predniSONE (DELTASONE) 10 mg tablet Take 4 tabs daily for 3 days, then 2 tabs daily for 3 days, then 1 tab daily for 3 days with food. (Patient not taking: Reported on 03/04/2023) FAMILY HISTORY Problem Relation Age of Onset Cancer Mother lung cancer Cancer Father No Known Problems Sister No Known Problems Brother Heart Maternal Grandmother Cancer Maternal Grandfather No Known Problems Sister No Known Problems Sister No Known Problems Brother Social History Tobacco Use Smoking status: Every Day Packs/day: 0.50 Years: 6.00 Pack years: 3.00 Types: Cigarettes Smokeless tobacco: Never Vaping Use Vaping Use: Former Substance Use Topics Alcohol use: Not Currently Drug use: Yes Types: Marijuana Review of Systems Constitutional: Negative for fever. HENT: Positive for congestion, ear pain and sore throat. Negative for ear discharge and nosebleeds. Respiratory: Positive for cough. Negative for shortness of breath and wheezing. Cardiovascular: Negative for chest pain. Gastrointestinal: Negative for diarrhea and vomiting. Musculoskeletal: Negative for neck pain. Skin: Negative for itching and rash. Objective Blood pressure 120/82, pulse 88, temperature 36.8 C (98.3 F), resp. rate 16, weight 99.8 kg (220 lb), last menstrual period 05/21/2019, SpO2 98 %. Physical Exam Constitutional: General: She is not in acute distress. Appearance: She is not toxic-appearing or diaphoretic. HENT: Head: Normocephalic and atraumatic. Right Ear: Hearing, ear canal and external ear normal. Tympanic membrane is bulging. Tympanic membrane is not perforated or erythematous. Left Ear: Hearing, tympanic membrane, ear canal and external ear normal. Tympanic membrane is not perforated, erythematous or bulging. Nose: Nose normal. Mouth/Throat: Pharynx: Uvula midline. No pharyngeal swelling, oropharyngeal exudate, posterior oropharyngeal erythema or uvula swelling. Eyes: General: Lids are normal. No scleral icterus. Right eye: No discharge. Left eye: No discharge. Conjunctiva/sclera: Conjunctivae normal. Pupils: Pupils are equal, round, and reactive to light. Neck: Trachea: Trachea normal. Cardiovascular: Rate and Rhythm: Normal rate and regular rhythm. Heart sounds: Normal heart sounds. Pulmonary: Effort: Pulmonary effort is normal. Breath sounds: Normal breath sounds. Musculoskeletal: Cervical back: Normal range of motion and neck supple. Lymphadenopathy: Cervical: No cervical adenopathy. Right cervical: No superficial cervical adenopathy. Left cervical: No superficial cervical adenopathy. Skin: Findings: No rash. Neurological: Mental Status: She is alert and oriented to person, place, and time. ASSESSMENT/PLAN: 1. URI, acute - ICD9: 465.9, ICD10: J06.9 (primary diagnosis) - Discussed viral etiology and rationale for treatment. - Symptomatic treatment with prn analgesia - Supportive care with fluids and rest - Follow up in 3-5 days if symptoms persist or sooner if worsening of symptoms - PREDNISONE 20 MG TABLET - FLUTICASONE PROPIONATE 50 MCG/ACTUATION NASAL SPRAY,SUSPENSION 2. ETD (Eustachian tube dysfunction), right - ICD9: 381.81, ICD10: H69.81 Try steroid first, s/s worsen fill/take atb -use medication as prescribed -follow up if symptoms persist, worsen, change - PREDNISONE 20 MG TABLET - FLUTICASONE PROPIONATE 50 MCG/ACTUATION NASAL SPRAY,SUSPENSION - AMOXICILLIN 875 MG-POTASSIUM CLAVULANATE 125 MG TABLET Km Bauer APRN.ORDER DESK CLERK documented in this encounter [facility] Progress note 07-11-2022 Note Date & Type Note Facility 07-11-2022 Note HNO ID: [id number] Author: Celeste Le APRN.ORDER DESK CLERK Service: ? Author Type: Nurse Practitioner Type: Progress Notes Filed: 07/11/2022 12:56 PM Note Text: This note was created using [employer]. Subjective Dequan Mazariegos is a 22 year old female. 22 year old female with PMH appendectomy presents for illness. Acute onset one week ago +cough Harsh +post nasal drainage +fever +sinus congestion +ear pain, left ear Denies CP. Denies hemoptysis Denies dyspnea Denies abdominal pain. +tobacco usage, but endorses she cannot smoke as much as she used to. She is accompanied by her daughter who is ill as well. The history is provided by the patient. No biblical languages professor was used. Cough This is a new problem. The current episode started more than 1 week ago. The problem occurs constantly. The problem has been gradually worsening. The cough is Non-productive. The maximum temperature recorded prior to her arrival was 100 to 100.9 F. Associated symptoms include chills, ear pain, headaches, rhinorrhea, sore throat and wheezing. Pertinent negatives include no chest pain, no sweats, no weight loss, no ear congestion, no myalgias and no eye redness. She has tried nothing for the symptoms. The treatment provided no relief. She is a smoker. Her past medical history does not include bronchitis, pneumonia, bronchiectasis, COPD, emphysema or asthma. PAST MEDICAL HISTORY Diagnosis Date Complication of anesthesia agitated and violent coming out of general anesthesia Depression with anxiety fracture age 1 right arm- jumping on couch PAST SURGICAL HISTORY Procedure Laterality Date APPENDECTOMY MIRENA IUD 04/24/2020 placed without incident TONSILLECTOMY AND ADENOIDECTOMY HX ALLERGIES Ibuprofen and Morphine MEDICATIONS levonorgestrel (MIRENA) 20 mcg/24 hours (5 yrs) 52 mg IUD 1 Each by INTRAUTERINE route as directed. predniSONE (DELTASONE) 10 mg tablet Take 4 tabs daily for 3 days, then 2 tabs daily for 3 days, then 1 tab daily for 3 days with food. amoxicillin-clavulanic acid (AUGMENTIN) 875-125 mg per tablet Take 1 tablet by mouth twice daily for 7 days. FAMILY HISTORY Problem Relation Age of Onset Cancer Mother lung cancer Cancer Father No Known Problems Sister No Known Problems Brother Heart Maternal Grandmother Cancer Maternal Grandfather No Known Problems Sister No Known Problems Sister No Known Problems Brother Social History Tobacco Use Smoking status: Every Day Packs/day: 0.50 Years: 6.00 Pack years: 3.00 Types: Cigarettes Smokeless tobacco: Never Vaping Use Vaping Use: Former Substance Use Topics Alcohol use: Not Currently Drug use: Yes Types: Marijuana Review of Systems Constitutional: Positive for chills and fatigue. Negative for weight loss. HENT: Positive for congestion, ear pain, rhinorrhea and sore throat. Eyes: Negative for redness. Respiratory: Positive for cough and wheezing. Negative for apnea, choking and chest tightness. Cardiovascular: Negative for chest pain, palpitations and leg swelling. Gastrointestinal: Negative for abdominal pain, diarrhea, nausea and vomiting. Musculoskeletal: Negative for arthralgias, back pain and myalgias. Skin: Negative for color change, pallor, rash and wound. Allergic/Immunologic: Negative for environmental allergies, food allergies and immunocompromised state. Neurological: Positive for headaches. Hematological: Negative for adenopathy. Does not bruise/bleed easily. Psychiatric/Behavioral: Negative for agitation and behavioral problems. Objective BP 118/70 Pulse 76 Temp 36.9 ?C (98.4 ?F) Resp 18 Wt 100.9 kg (222 lb 6.4 oz) LMP 05/21/2019 (Within Days) SpO2 97% BMI 35.36 kg/m? Physical Exam Vitals and nursing note reviewed. Constitutional: General: She is not in acute distress. Appearance: Normal appearance. She is normal weight. She is not ill-appearing, toxic-appearing or diaphoretic. HENT: Head: Normocephalic and atraumatic. Right Ear: Ear canal and external ear normal. Left Ear: Ear canal and external ear normal. Ears: Comments: Left TM erythematous and bulging Nose: Nose normal. No congestion or rhinorrhea. Mouth/Throat: Mouth: Mucous membranes are moist. Pharynx: No oropharyngeal exudate or posterior oropharyngeal erythema. Eyes: General: Right eye: No discharge. Left eye: No discharge. Extraocular Movements: Extraocular movements intact. Conjunctiva/sclera: Conjunctivae normal. Pupils: Pupils are equal, round, and reactive to light. Cardiovascular: Rate and Rhythm: Normal rate and regular rhythm. Pulses: Normal pulses. Heart sounds: Normal heart sounds. No murmur heard. No friction rub. Pulmonary: Effort: Pulmonary effort is normal. No respiratory distress. Breath sounds: Normal breath sounds. No stridor. No wheezing, rhonchi or rales. Comments: Diffuse expiratory wheezing noted. Chest: Chest w (more content not included)... [facility] History of Present illness Narrative 07-11-2022 Celeste Le APRN.ORDER DESK CLERK - 07/11/2022 12:37 PM EDT Note Date & Type Note Facility 07-11-2022 History of Presen t illness Narrative This note was created using [email or web address]. Subjective Dequan Mazariegos is a 22 year old female. 22 year old female with PMH appendectomy presents for illness. Acute onset one week ago +cough Harsh +post nasal drainage +fever +sinus congestion +ear pain, left ear Denies CP. Denies hemoptysis Denies dyspnea Denies abdominal pain. +tobacco usage, but endorses she cannot smoke as much as she used to. She is accompanied by her daughter who is ill as well. The history is provided by the patient. No biblical languages professor was used. Cough This is a new problem. The current episode started more than 1 week ago. The problem occurs constantly. The problem has been gradually worsening. The cough is Non-productive. The maximum temperature recorded prior to her arrival was 100 to 100.9 F. Associated symptoms include chills, ear pain, headaches, rhinorrhea, sore throat and wheezing. Pertinent negatives include no chest pain, no sweats, no weight loss, no ear congestion, no myalgias and no eye redness. She has tried nothing for the symptoms. The treatment provided no relief. She is a smoker. Her past medical history does not include bronchitis, pneumonia, bronchiectasis, COPD, emphysema or asthma. PAST MEDICAL HISTORY Diagnosis Date Complication of anesthesia agitated and violent coming out of general anesthesia Depression with anxiety fracture age 1 right arm- jumping on couch PAST SURGICAL HISTORY Procedure Laterality Date APPENDECTOMY MIRENA IUD 04/24/2020 placed without incident TONSILLECTOMY AND ADENOIDECTOMY HX ALLERGIES Ibuprofen and Morphine MEDICATIONS levonorgestrel (MIRENA) 20 mcg/24 hours (5 yrs) 52 mg IUD 1 Each by INTRAUTERINE route as directed. predniSONE (DELTASONE) 10 mg tablet Take 4 tabs daily for 3 days, then 2 tabs daily for 3 days, then 1 tab daily for 3 days with food. amoxicillin-clavulanic acid (AUGMENTIN) 875-125 mg per tablet Take 1 tablet by mouth twice daily for 7 days. FAMILY HISTORY Problem Relation Age of Onset Cancer Mother lung cancer Cancer Father No Known Problems Sister No Known Problems Brother Heart Maternal Grandmother Cancer Maternal Grandfather No Known Problems Sister No Known Problems Sister No Known Problems Brother Social History Tobacco Use Smoking status: Every Day Packs/day: 0.50 Years: 6.00 Pack years: 3.00 Types: Cigarettes Smokeless tobacco: Never Vaping Use Vaping Use: Former Substance Use Topics Alcohol use: Not Currently Drug use: Yes Types: Marijuana Review of Systems Constitutional: Positive for chills and fatigue. Negative for weight loss. HENT: Positive for congestion, ear pain, rhinorrhea and sore throat. Eyes: Negative for redness. Respiratory: Positive for cough and wheezing. Negative for apnea, choking and chest tightness. Cardiovascular: Negative for chest pain, palpitations and leg swelling. Gastrointestinal: Negative for abdominal pain, diarrhea, nausea and vomiting. Musculoskeletal: Negative for arthralgias, back pain and myalgias. Skin: Negative for color change, pallor, rash and wound. Allergic/Immunologic: Negative for environmental allergies, food allergies and immunocompromised state. Neurological: Positive for headaches. Hematological: Negative for adenopathy. Does not bruise/bleed easily. Psychiatric/Behavioral: Negative for agitation and behavioral problems. Objective BP 118/70 Pulse 76 Temp 36.9 C (98.4 F) Resp 18 Wt 100.9 kg (222 lb 6.4 oz) LMP 05/21/2019 (Within Days) SpO2 97% BMI 35.36 kg/m Physical Exam Vitals and nursing note reviewed. Constitutional: General: She is not in acute distress. Appearance: Normal appearance. She is normal weight. She is not ill-appearing, toxic-appearing or diaphoretic. HENT: Head: Normocephalic and atraumatic. Right Ear: Ear canal and external ear normal. Left Ear: Ear canal and external ear normal. Ears: Comments: Left TM erythematous and bulging Nose: Nose normal. No congestion or rhinorrhea. Mouth/Throat: Mouth: Mucous membranes are moist. Pharynx: No oropharyngeal exudate or posterior oropharyngeal erythema. Eyes: General: Right eye: No discharge. Left eye: No discharge. Extraocular Movements: Extraocular movements intact. Conjunctiva/sclera: Conjunctivae normal. Pupils: Pupils are equal, round, and reactive to light. Cardiovascular: Rate and Rhythm: Normal rate and regular rhythm. Pulses: Normal pulses. Heart sounds: Normal heart sounds. No murmur heard. No friction rub. Pulmonary: Effort: Pulmonary effort is normal. No respiratory distress. Breath sounds: Normal breath sounds. No stridor. No wheezing, rhonchi or rales. Comments: Diffuse expiratory wheezing noted. Chest: Chest wall: No tenderness. Abdominal: General: Abdomen is flat. There is no distension. Palpations: Abdomen is soft. There is no mass. Tenderness: There is no abdominal tenderness. There is no right CVA tenderness, left CVA tenderness, guarding or rebound. Hernia: No hernia is present. Musculoskeletal: General: No swelling, tenderness, deformity or signs of injury. Normal range of motion. Cervical back: Normal range of motion and neck supple. No rigidity. Right lower leg: No edema. Left lower leg: No edema. Lymphadenopathy: Cervical: No cervical adenopathy. Skin: General: Skin is warm and dry. Capillary Refill: Capillary refill takes less than 2 seconds. Coloration: Skin is not jaundiced or pale. Findings: No bruising, erythema, lesion or rash. Neurological: General: No focal deficit present. Mental Status: She is alert and oriented to person, place, and time. Cranial Nerves: No cranial nerve deficit. Sensory: No sensory deficit. Motor: No weakness. Coordination: Coordination normal. Gait: Gait normal. Psychiatric: Mood and Affect: Mood normal. Behavior: Behavior normal. Thought Content: Thought content normal. Judgment: Judgment normal. Assessment and Plan ASSESSMENT/PLAN: 1. URI, acute - ICD9: 465.9, ICD10: J06.9 (primary diagnosis) - Symptomatic treatment with prn analgesia - Supportive care with fluids and rest - The patient may also use OTC cough and cold meds as needed, warm salt water gargles, throat lozenges and/or OTC throat spray as needed, and nasal saline gtts and suction prn. - Follow up in 3-5 days if symptoms persist or sooner if worsening of symptoms Declines ISABEL Declines obtaining CXR as she is accompanied by 2 year old and can't wait 2. Acute otitis media, left - ICD9: 382.9, ICD10: H66.92 - Will begin treatment with as per antibiotic as written, see orders - The patient should also be given OTC cough and cold meds as needed and warm salt water gargles, throat lozenges and/or OTC throat spray as needed for the first 5-7 days of treatment. - Supportive care with plenty of fluids, rest, and analgesia prn. - Follow up in 3-5 days if symptoms persist or worsen. Celeste Le APRN.ENRIQUE documented in this encounter [facility] History of Past illness Narrative 08-04-2019 Note Date & Type Note Facility documented as of this encounter (statuses as of 07/11/2022) [facility] History of Past illness Narrative 08-04-2019 Note Date & Type Note Facility documented as of this encounter (statuses as of 03/04/2023) [facility] Evaluation note Note Date & Type Note Facility documented in this encounter [facility] Evaluation note Note Date & Type Note Facility documented in this encounter [facility] Summary Purpose Family History No Family History Records FoundNo Family History Records Found Advance Directives No Advanced Directives Records FoundNo Advanced Directives Records Found Additional Source Comments Source Comments (unrecognize d section and content) In the event this informatio n is protected by the Federal Confidentiality of Alcohol and Drug Abuse Patient Records regulations: The Federal rules restrict any use of the information to criminally investigate or prosecute any alcohol or drug abuse patient[facility] event this information is protected by the Federal Confidentiality of Alcohol and Drug Abuse Patient Records regulations: The Federal rules restrict any use of the information to criminally investigate or prosecute any alcohol or drug abuse patient.[facility] Reason for Visit (unrecogniz ed section and content) Reason Comments Ear Pain Bilateral, with sore throat, congestion, headache, difficulty breathing, loss of voice started yesterday Care Teams (unrecognized sec tion and content) Menagerie Caretaker Relationship Specialty Start Date End Date Caty Oliver DO PCP - General Family Medicine 10/10/15 INFORMATION SOURCE (unrecogn ized section and content) DATE CREATED AUTHOR AUTHOR'S RODOLFO ATION 04/16/2023 [facility] FOR RECORDS PERTAINING TO PATIENTS WHO ARE OR HAVE BEEN ENROLLED IN A CHEMICAL DEPENDENCY/SUBSTANCEABUSE PROGRAM, SOME INFORMATION MAY BE OMITTED. This clinical summary was aggregated from multiple sources. Caution should be exercised in using it in the provision of clinical care. This summary normalizes information from multiple sources, and as a consequence, information in this document may materially change the coding, format and clinical context of patient data. In addition, data may be omitted in some cases. CLINICAL DECISIONS SHOULD BE BASED ON THE PRIMARY CLINICAL RECORDS. [facility]. provides no warranty or guarantee of the accuracy or completeness of information in this document.
[2023-11-17 07:40] VITALS: BMI 28.0; BMI 30.5
[2023-11-17 07:48] LABS: Mucous, Urine 0 SEEN /hpf (<or=2+); Red Blood Cells-Urine 0 SEEN /hpf (0-5)
[2023-11-17 07:56] LABS: Color, Urine Yellow (Yellow); Glucose, Dipstick Normal (Normal); Ketone-Dipstick Negative (Negative); Leukocyte Esterase-Dipstick 100 /ul (Negative); Nitrite-Dipstick Negative (Negative); Occult Blood-Urine 10 /ul (Negative); Protein-Dipstick 30 mg/dl (Negative); Specific Gravity, Urine 1.015 (1.002-1.030); Urine Bilirubin Dipstick Negative (Negative); Urine Clarity Cloudy (Clear); Urine Urobilinogen Normal (Normal)
[2023-11-17 08:09] LABS: White Blood Cells 5-10 SEEN /hpf (0-5)
[2023-11-17 08:10] LABS: Bacteria 1+ /hpf (None Seen); Squamous Epithelial Cells - UA 5-10 SEEN /hpf (5-10)
== END 2023-11-17 08:46 | disposition home or self-care (01) ==
PROVIDERS: Emergency Provider Emergency Medicine; Visit Provider Emergency Medicine
DX: R10.13 Epigastric pain (principal); F31.9 Bipolar disorder, unspecified; F17.210 Nicotine dependence, cigarettes, uncomplicated
CPT/HCPCS: 80048; 80076; 81001; 83690; 84703; 85025; 96372; 96374; 99283; J7030; A4216; J2405

== ENCOUNTER 2024-07-07 11:45 | Emergency (ER) | payer MEDICAID, SELFPAY ==
[2024-07-07 11:45] VITALS: BP 135/98; PULSE 100; RESP 22; TEMP 37.1; O2SAT 98; BMI 33.3
[2024-07-07 13:18] VITALS: BP 138/100; PULSE 107; RESP 16; O2SAT 100
--- NOTE | 2024-07-07 13:52 | EDS_ITS ---
HPI HPI - URI History of Present Illness Chief Complaint: Ear Problem Informant: patient Narrative Narrative: Patient states she has had a cold for about a week. She states it became pretty significant but she has been improving except she started getting a left earache last night overnight and today it is severe. She had a little bit of discharge from her ear. No blood. Trouble hearing out of it. No pain elsewhere. ROS ROS ED Constitutional Constitutional ED: Denies chills or fever(s) ENT ENT ED: Reports ear pain right, nasal congestion and rhinorrhea; Denies sore throat Cardiovascular Cardiovascular: Denies chest pain or palpitations Respiratory/Chest Respiratory/Chest: Reports cough; Denies dyspnea Gastrointestinal Gastrointestinal: Denies abdominal pain, diarrhea, nausea or vomiting Genitourinary Genitourinary ED: Denies dysuria or hematuria Musculoskeletal Musculoskeletal: Denies myalgias or neck pain Integumentary Denies abscess or rash Neurologic Neurologic: Denies headache(s), paresthesias or weakness Psychiatric Psychiatric: Denies depression or suicidal thoughts Endocrine Endocrinology: Denies polydipsia or polyuria PFSH PFSH Medical History Bipolar disorder Home Medications ?Medication ?Instructions ?Recorded ?Last Taken ?Type hydrocodone-acetaminophen 5-325mg 1 tab PO Q6H PRN PRN Pain 3 days 05/15/23 Unknown Rx 5mg-325mg #12 TABLETS omeprazole 20 mg capsule,delayed 20 mg PO DAILY #30 CAPSULES 11/17/23 Unknown Rx release amoxicillin 875 mg-potassium 875 mg PO Q12H #20 TABLETS 07/07/24 Unknown Rx clavulanate 125 mg tablet Allergy/AdvReac Type Severity Reaction Status Date / Time morphine Allergy Rash Verified 07/07/24 11:45 ibuprofen AdvReac Nausea/Vom/ Verified 07/07/24 11:45 Diarrhea Surgical History Hx of appendectomy Hx of tonsillectomy Social History Smoking Status: Current every day smoker tobacco type: e-cigarettes EXAM Physical Exam Const Vital Signs: 07/07/24 11:45 07/07/24 13:18 Temperature 98.8 F Temperature Source Oral Pulse Rate 100 107 H Respiratory Rate 22 H 16 Blood Pressure 135/98 H 138/100 H Blood Pressure Mean 110 112 Pulse Ox 98 100 Oxygen Delivery Method Room Air Room Air Positive well nourished and well developed General Appearance ED: well developed and NAD HEENT Reports moist mucous membranes HEENT Narrative: Right TM and EAC normal. Left TM is erythematous, bulging, I do not see a perforation or any discharge within the EAC. The EAC is not edematous but she has significant discomfort with manipulation of the pinna. There is no periauricular lymphadenopathy or tenderness at the mastoid process. normocephalic and atraumatic Throat: Negative for posterior oropharynx abnormal Eyes PERRL and EOMs intact bilaterally Neck no lymphadenopathy, supple and no meningeal signs Resp normal respiratory effort and clear to auscultation bilaterally Cardio no murmurs Rate: regular rate Rhythm: regular rhythm Neuro oriented x3, CN's II-XII intact bilaterally and no sensory deficits noted Sensorium / Orientation: alert Motor Exam: strength 5/5 throughout Skin Lesions: no lesions Rashes: no rashes MDM MDM MDM Narrative Medical decision making narrative: Consistent with a viral URI that has giving her an otitis media. She has a lot of discomfort with manipulating the pinna which suggest swimmer's ear, however she has not been swimming lately, and the URI is her main risk factor for this being likely a middle ear infection and the TM is consistent with that. There is no evidence of perforation. Prescribed oral Augmentin and advised to follow- up if she does not get better. She was given something here for pain. Discharge Plan Triage Chief Complaint: Ear Problem ED Provider: Phong Bravo Dx/Rx/DC Orders Clinical Impression: Left otitis media, Viral URI with cough Instructions: ED Otitis Media Adult Prescriptions: New amoxicillin-pot clavulanate 875-125 mg tablet 875 mg PO Q12H Qty: 20 0RF Continued omeprazole 20 mg capsule,delayed release(DR/EC) 20 mg PO DAILY Qty: 30 0RF Discontinued amoxicillin 500 mg tablet 500 mg PO TID Qty: 30 0RF No Action hydrocodone-acetaminophen [hydrocodone-acetaminophen] 5-325 mg tablet 1 tab PO Q6H PRN PRN (Reason: Pain) 3 Days Qty: 12 0RF Primary Care Provider: Care Physician,No Primary Referrals: Care Physician,No Primary [Primary Care Provider] - Doctor,Your [Non-Staff] - 1 Week if not improving Print Language: Montserratian Disposition Disposition: Home, Self Care
[2024-07-07] MEDS: Amox/Clavulanate 875 MG Tablet PO (14:18)
[2024-07-07] MEDS: Naproxen 500 MG Tablet PO (14:18)
[2024-07-07 14:20] VITALS: BP 134/69; PULSE 76; RESP 15; TEMP 36.9; O2SAT 100
== END 2024-07-07 14:21 | disposition home or self-care (01) ==
PROVIDERS: Emergency Provider Emergency Medicine; Visit Provider Emergency Medicine
DX: H66.92 Otitis media, unspecified, left ear (principal); F31.9 Bipolar disorder, unspecified; J06.9 Acute upper respiratory infection, unspecified; F17.290 Nicotine dependence, other tobacco product, uncomplicated
CPT/HCPCS: 99283

== ENCOUNTER 2024-07-12 10:17 | Emergency (ER) | payer MEDICAID, SELFPAY ==
[2024-07-12 10:18] VITALS: BP 156/96; PULSE 120; RESP 20; TEMP 35.7; O2SAT 96; BMI 32.3
--- NOTE | 2024-07-12 10:21 | ED.RN ---
patient upset rn asked patient to leave mask on her face without taking it off to talk. pt became angry and yelled at RN she can't breathe and she will leave. rn states I understand but with your symptoms you need to leave the mask on without touching it. pt tearful and redirected to what brought her to emergency room
[2024-07-12 11:17] VITALS: O2SAT 96
--- NOTE | 2024-07-12 12:22 | EX.ED.VIS.UR ---
HPI HPI - URI History of Present Illness Chief Complaint: Cold Sx Informant: patient Onset/Context/Timing Onset: Days (5) Context: Gradual Onset Timing: Continuous Worsened by: Swallowing Relieved by: - (Nothing) Associated Symptoms Associated Symptoms: Positive for Nasal Congestion, Headache, Sinus Pressure, Nausea, Vomiting, Shortness of Breath, Chest Pain and Productive Cough (Green sputum); Negative for Myalgias, Diarrhea, Nonproductive cough or Hemoptysis Narrative Narrative: Patient presents with ear pain, fever, and upper respiratory congestion that has been getting worse over the last 5 days. Patient states her pain has been constant. Patient states it is worse in the left ear. It is now spread to the right ear. Patient states she is coughing up some green sputum. Patient admits to some nausea and vomiting. Patient admits to some dizziness, shortness of breath, and pain in her chest. Patient states her pain in her chest is only when she coughs. Patient states her temperature has been up to 103 at home. Patient was seen here recently for this and was prescribed. Augmentin for an ear infection. ROS ROS ED Constitutional Constitutional ED: Reports fever(s); Denies chills Eyes Eyes: Reports blurry vision; Denies change in vision ENT ENT ED: Reports ear pain bilateral; Denies rhinorrhea or sore throat Cardiovascular Cardiovascular: Reports chest pain; Denies palpitations Respiratory/Chest Respiratory/Chest: Reports cough and dyspnea Gastrointestinal Gastrointestinal: Reports nausea and vomiting Genitourinary Genitourinary ED: Denies dysuria or hematuria Musculoskeletal Musculoskeletal: Reports back pain; Denies neck pain Integumentary Denies abscess or rash Neurologic Neurologic: Reports headache(s) and weakness Allergic/Immunologic Allergic/Immunologic ED: Denies mouth swelling or urticaria [facility] Medical History Bipolar disorder Home Medications ?Medication ?Instructions ?Recorded ?Last Taken ?Type hydrocodone-acetaminophen 5-325mg 1 tab PO Q6H PRN PRN Pain 3 days 05/15/23 Unknown Rx 5mg-325mg #12 TABLETS omeprazole 20 mg capsule,delayed 20 mg PO DAILY #30 CAPSULES 11/17/23 Unknown Rx release amoxicillin 875 mg-potassium 875 mg PO Q12H #20 TABLETS 07/07/24 Unknown Rx clavulanate 125 mg tablet ondansetron 4 mg disintegrating 4 mg PO Q8H PRN PRN Nausea #10 tabs 07/12/24 Unknown Rx tablet Allergy/AdvReac Type Severity Reaction Status Date / Time morphine Allergy Rash Verified 07/12/24 10:26 ibuprofen AdvReac Nausea/Vom/ Verified 07/12/24 10:26 Diarrhea Surgical History Hx of tonsillectomy Hx of appendectomy Social History Smoking Status: Current every day smoker tobacco type: e-cigarettes EXAM Physical Exam Const Vital Signs: 07/12/24 10:18 07/12/24 11:17 07/12/24 11:17 Temperature 96.3 F L Temperature Source Temporal Pulse Rate 120 H Respiratory Rate 20 H Respiratory Effort Normal Non-Labored Normal Non-Labored Respiratory Pattern Normal Blood Pressure 156/96 H Blood Pressure Mean 116 Pulse Ox 96 Oxygen Delivery Method Room Air Room Air 07/12/24 12:58 07/12/24 14:19 Temperature 98 F Temperature Source Pulse Rate 114 H 99 Respiratory Rate 20 H 18 Respiratory Effort Respiratory Pattern Tachypnea Blood Pressure 149/100 H Blood Pressure Mean 116 Pulse Ox 99 Oxygen Delivery Method Positive well nourished and well developed General Appearance ED: well developed and NAD HEENT Reports moist mucous membranes HEENT Narrative: External auditory canals were edematous and erythematous bilaterally, worse on the left. There is some mild drainage from the left external auditory canal. Tympanic membranes were also mildly erythematous bilaterally. Face and Sinus: Negative for sinus tenderness Throat: posterior oropharynx abnormal Positive for erythema Neck supple, no meningeal signs and no JVD General: Negative for anterior neck swelling Resp normal respiratory effort Auscultation: rhonchi Cardio Rhythm: regular rhythm GI non-tender and non-distended Palpation: soft Neuro oriented x3, CN's II-XII intact bilaterally and no sensory deficits noted Sensorium / Orientation: alert Motor Exam: strength 5/5 throughout Psych mental status grossly normal MDM MDM MDM Narrative Medical decision making narrative: Differential diagnosis is viral upper respiratory illness, otitis externa, and bronchitis. COVID-19, influenza, and RSV PCR will be obtained to assess for well viral illness. Lab Data Lab results narrative: COVID-19 PCR was reviewed and was negative. Influenza PCR was reviewed and was negative for influenza A and influenza B. RSV PCR was reviewed and was negative. Treatment and Re-Evaluation Narrative: Patient was given a DuoNeb aerosol here. Patient was advised of her findings. Patient was instructed to continue her Augmentin as prescribed until it is gone. Patient was also given Cortisporin otic drops here and the bottle was dispensed patient was instructed to apply 4 drops to both ears 4 times daily. Patient requested a prescription for an antiemetic. Patient was given a prescription for Zofran ODT. This was sent to her pharmacy. Patient was instructed to follow-up with her primary care physician in 5 to 7 days. Patient was instructed return if worse in any way. Patient understood and was agreeable with the plan. All questions were answered. Discharge Plan Triage Chief Complaint: Cold Sx ED Provider: Darek Steele Dx/Rx/DC Orders Clinical Impression: Viral URI with cough, Otitis externa of both ears Instructions: ED URI, Viral W/ Wheezing (Adult), ED External Ear Infection (Adult) Prescriptions: New ondansetron 4 mg tablet,disintegrating 4 mg PO Q8H PRN PRN (Reason: Nausea) Qty: 10 0RF No Action hydrocodone-acetaminophen [hydrocodone-acetaminophen] 5-325 mg tablet 1 tab PO Q6H PRN PRN (Reason: Pain) 3 Days Qty: 12 0RF omeprazole 20 mg capsule,delayed release(DR/EC) 20 mg PO DAILY Qty: 30 0RF amoxicillin-pot clavulanate 875-125 mg tablet 875 mg PO Q12H Qty: 20 0RF Primary Care Provider: Care Physician,No Primary Referrals: Gus Clemons MD [Med Staff - [employer] Instructor] - 5-7 Days Care Physician,No Primary [Primary Care Provider] - Activity Restrictions/Additional Instructions: Use the Cortisporin eardrops 4 times daily. Put 4 drops in each ear. Use [id number] Tylenol or ibuprofen as needed for pain. Print Language: [place]i Disposition Disposition: Home, Self Care Discharge Date/Time: 07/12/24 14:20
[2024-07-12] MEDS: Ipratropium/Albuterol Sulfate 3 ML AMPUL.NEB INHALATION (12:56)
[2024-07-12 12:58] VITALS: PULSE 114; RESP 20
[2024-07-12] MEDS: Neomycin/Polymyxin/Dexameth 5ML OPTH.BTL 4 DRP OTIC (14:16)
[2024-07-12 14:19] VITALS: BP 149/100; PULSE 99; RESP 18; TEMP 36.6; O2SAT 99
--- OUTSIDE RECORDS SUMMARY | 2024-07-12 17:59 | XMS RPT_ITS | CCD ---
Author Organization [facility] Care Team Providers Care Dry Roller Name Role Phone Caty Oliver DO Primary Care Provider [phone] CATY OLIVER Primary Care Unavailable CATY OLIVER Primary Care Unavailable ED JOSHI Attending Unavailable ED JOSHI Primary Care Unavailable ED JOSHI Admitting Unavailable Caty Oliver DO Primary Care Provider Allergies Allergy Classification Reported Allergen(s) Allergy Type Date of Onset Reaction(s) Facility (5 sources) Ibuprofen; Translations: [IBUPROFEN] Drug Allergy 06-24-2016 Intolerance [facility] (5 sources) Morphine; Translations: [MORPHINE] Drug Allergy 08-04-2019 Hives [facility] Work Phone: Medications Current Medications Medication Drug Class(es) Dates Sig (Normalized) Sig (Original) amoxicillin 875 mg / clavulanate 125 mg oral tablet (3 sources) Penicillin-class Antibacterial Start: 03-04-2023 End: 03-11-2023 take 1 tablet by mouth twice daily amoxicillin-clav ulanic acid (AUGMENTIN) 875-125 mg per tablet Indications: ETD (Eustachian tube dysfunction), right Take 1 tablet by mouth twice daily for 7 days. 14 tablet 0 03/04/2023 03/11/2023 Active Start: 07-11-2022 End: 07-18-2022 take 1 tablet by mouth twice daily amoxicillin-clavulanic acid (AUGMENTIN) 875-125 mg per tablet Take 1 tablet by mouth twice daily for 7 days. 14 tablet 0 07/11/2022 07/18/2022 Active Comment on above: Take 1 tablet by rico twice daily for 7 days. fluticasone propionate 0.05 mg/actuat metered dose nasal spray (3 sources) Corticosteroid Start: 023 take 2 spray(s) by mouth once daily fluticasone (FLONASE) 50 mcg/actuation nasal spray Indications: URI, acute , ETD (Eustachian tube dysfunction), right Use 2 Sprays in each nostril once daily. Rinse mouth after use. 1 Each 03/04/2023 Active Comment on above: Use 2 Sprays in each nostril once daily. Rinse mouth after use. levonorgestrel 0.110759 mg/hr intrauterine system (4 sources) Progestin, Progestin-containing Intrauterine Device Start: 020 End: levonorgestrel (MIRENA) 20 mcg/24 hours (5 yrs) 52 mg IUD 1 Each by INTRAUTERINE route as directed. 1 Each 04/24/2020 04/23/2025 Active Comment on above: 1 Each by INTRAUTERI NE route as directed. predniSONE 20 mg oral tablet (3 sources) Start: 023 End: take 2 tablets by mouth once daily predniSONE (DELTASONE) 20 mg tablet Indications: URI, acute , ETD (Eustachian tube dysfunction), right Take 2 tablets by mouth once daily for 5 days. 10 tablet 0 03/04/2023 03/09/2023 Active Start: 07-11-2022 End: 03-04-2023 predniSONE (DELTASONE) 10 mg tablet Take 4 tabs daily for 3 days, then 2 tabs daily for 3 days, then 1 tab daily for 3 days with food. 21 tablet 0 07/11/2022 03/04/2023 Discontinued Comment on above: Take 4 tabs daily fo r 3 days, then 2 tabs daily for 3 days, then 1 tab daily for 3 days with food. Take 2 tablets by mo [facility] once daily for 5 days. Problems Active Problems Problem Classification Problem Date Documented Da te Episodic/Chronic Cardiac dysrhythmias (1 source) Tachycardia; Translations: [Tachycardia, unspecified] 07-12-2024 Episodic Conditions associated with dizziness or vertigo (1 source) Dizziness; Translations: [Dizziness and giddiness] 07-12-2024 Episodic Nausea and vomiting (1 source) Intractable nausea and vomiting; Translations: [Nausea with vomiting, unspecified] 07-12-2024 Episodic Other lower respiratory disease (1 source) Productive cough ; Translations: [Productive cough] 07-12-2024 Episodic Other lower respiratory disease (1 source) Wheezing; Translations: [Wheezing] 07-12-2024 Episodic Other lower respiratory disease (1 source) Dyspnea; Translations: [Shortness of breath] 07-12-2024 Episodic Other nutritional; endocrine; and metabolic disorders (1 source) Weight loss; Translations: [Abnormal weight loss] 07-12-2024 Episodic Other upper respiratory disease (4 sources) Allergic rhinitis; Translations: [Allergic rhinitis, unspecified] Onset: 12-31-2011 12-31-2011 Chronic Other upper respiratory infections (2 sources) Acute upper respiratory infection; Translations: [Acute upper respiratory infection, unspecified] Episodic Otitis media and related conditions (3 sources) Acute left otitis media; Translations: [Otitis media, unspecified, left ear] Episodic Past or Other Problems Problem Classification Problem Date Documented Da te Episodic/Chronic Other complications of (4 sources) Maternal tobacco use; Translations: [Smoking (tobacco) complicating , unspecified trimester] Onset: 08-04-2019 08-04-2019 Episodic Other complications of (2 sources) Vomiting of , unspecified; Translations: [Unspecified vomiting of , unspecified as to episode of care or not applicable] Onset: 08-04-2019 Resolved: 10-21-2019 10-21-2019 Episodic Other congenital anomalies (4 sources) H/O: congenital anomaly; Translations: [Personal history of other (corrected) congenital malformations] Onset: 08-04-2019 08-04-2019 Episodic Screening and history of mental health and substance abuse codes (4 sources) H/O: manic depressive disorder; Translations: [Personal history of other mental and behavioral disorders] Onset: 08-04-2019 08-04-2019 Episodic Substance-related disorders (4 sources) Marijuana user; Translations: [Cannabis use, unspecified, uncomplicated] Onset: 08-04-2019 08-23-2019 Episodic Results Test Name Value Interpretation Reference Range [facility] EMERGENCY REPORTon 3 EMERGENCY REPORT [facility] EMERGENCY ROOM REPORT NAME ACCOUNT SEX AGE ADMIT DISCHARGE PT MED. RECORD# NUMBER DATE DATE TYPE GERMAN [id number] F 03/29/23 03/29/23 3 DEQUAN [id number] ROOM: ER DATE OF : 2000 DICTATING PHYSICIAN: Ed Joshi CHIEF COMPLAINT: Pain to right ear and jaw area. HISTORY OF PRESENT ILLNESS: The patient has had some mild discomfort to the right side of her jaw that has been much worse since 4:00 this morning. She states that it is from her right ear radiating along the right jaw and slightly the neck area. She states it is a little bit painful to swallow. It has pain along the teeth on that side. She has not had fever or chills. Some mild nausea but no vomiting. No injury or trauma. Has not been swimming significantly. PAST MEDICAL HISTORY: Negative for medical problems. PAST SURGICAL HISTORY: Appendectomy. MEDICATIONS: Takes no medications. ALLERGIES: No allergies. SOCIAL HISTORY: She lives at home. She does smoke. Drinks alcohol occasionally. REVIEW OF SYSTEMS: As mentioned above. PHYSICAL EXAMINATION: GENERAL: This is a 22-year-old, slightly heavy built female who is alert and appropriate. Appears uncomfortable, slightly tearful, but in no acute distress. SKIN: [place], warm and dry. There is no noticeable facial redness, swelling or asymmetry. HEENT: Pupils are equal, round and reactive to light. Extraocular muscles are intact. Nasal examination is normal. She has tenderness with palpation along the external right ear, the TMJ area, just anterior to the ear and along the angle of the jaw and masseter and cheek area. Very minimal anterior cervical tenderness but no appreciable adenopathy. There are no skin lesions at all seen. She does not have any left sided facial or ear pain. Examining her ear was quite painful but the external canal really appeared normal but the TM did appear that it had some fluid but there was no marked abnormalities or redness. Intraoral examination was painful to open her mouth. She does have what appears to be somewhat slightly impacted right lower 3rd molar that is carious and that entire area is quite tender to percussion. There is no gingival swelling. No purulent drainage. Other teeth generally appear well. No dysphonia. No dysphagia. She is handling secretions well. NECK: Supple without Page 1 of 2 DEQUAN MAZARIEGOS Emergency Room Report DEQUAN MAZARIEGOS : 2000 adenopathy. EMERGENCY DEPARTMENT COURSE AND TREATMENT: Patient has right facial pain. It does look like she has some serous otitis media but I would be suspicious that this may be more related to the molar and some dental infection. She was given a prescription for amoxicillin. I did E-prescribe Percocet for the next several days to Ras. PLAN/DISPOSITION: I recommend that she follow up with a dentist as soon as possible and have family physician recheck her in the next 2 to 3 days returning if symptoms worsen. Dictated By: Ed Joshi MD 03/29/23 12:27 JOB #: [id number] Transcribed By: liza 03/29/23 12:39 Electronically signed by: GAYATRI Joshi M.D. 04/16/23 07:25 Page 2 of 2 DEQUAN MAZ[facility]IEGOS [facility] Office Visit ([facility] ) DEQUAN MAZARIEGOS ([id number]) 2000 F Date Time Provider Department 03/04/23 12:30 PM PARKER BAUER [facility] During your visit today, we recorded the following information about you: Temperature Pulse Respiration Blood pressure 98.3 degrees 88/minute 16/minute 120/82 Weight 99.8 kg Parker Bauer APRN.[employer] SEAL[employer] 03/04/2023 1:23 PM Signed Subjective HPI HPI Dequan Mazariegos is a [...] AMOXICILLIN 875 MG-POTASSIUM CLAVULANATE 125 MG TABLET Parker Bauer APRN.[employer] SEALER Allergies As of Date: (more content not included)... Normal [facility] CNOVon 07-11-2022 CNOV Office Visit ([facility] ) DEQUAN MAZARIEGOS ([id number]) 2000 F Date Time Provider Department 07/11/22 12:30 PM IVONNE CRISTINA [facility] During your visit today, we recorded the following information about you: Temperature Pulse Respiration Blood pressure 98.4 degrees 76/minute 18/minute 118/70 Weight Last Period 100.9 kg 05/21/19 Ivonne Cristina APRN.ENRIQUE 07/11/2022 12:56 PM Signed This note was created using NoteWriter. Subjective Dequan Mazariegos is a 22 year [...] history is provided by the patient. No high school foreign language teacher was used. Cough This is a new [...] tab daily for 3 days with food. amoxicillin-clavulani c acid (AUGMENTIN) 875-125 mg per tablet Take [...] Negative for adenopathy. Does not bruise/bleed easily. Psychiatric/Behaviora l: Negative for agitation and behavioral problems. Objective [...] Rhythm: Normal rate and regular rhythm. Pulses: Nor (more content not included)... Normal [facility] Vital Signs Date Time Vital Sign Value Performing Clinician Mandi jones 07-12-2024 09:42-0400 Body mass index (BMI) [Ratio] 31.77 kg/m2 Wilber Castañeda MD Work Phone: [facility] 07-12-2024 09:42-0400 Body temperature 97.2 [degF] Wilber Castañeda MD Work Phone: [facility] 07-12-2024 09:42-0400 Body weight 90.63 kg Wilber Castañeda MD Work Phone: [facility] 07-12-2024 09:42-0400 Diastolic blood pressure 84 mm[Hg] Wilber Castañeda MD Work Phone: [facility] 07-12-2024 09:42-0400 Heart rate 118 /min Wilber Castañeda MD Work Phone: [facility] 07-12-2024 09:42-0400 Respiratory rate 18 /min Wilber Castañeda MD Work Phone: [facility] 07-12-2024 09:42-0400 SaO2% (BldA) [Mass fraction] 98 % Wilber Castañeda MD Work Phone: [facility] 07-12-2024 09:42-0400 Systolic blood pressure 124 mm[Hg] Wilber Castañeda MD Work Phone: [facility] 03-04-2023 12:39-0400 Body temperature 98.29 [degF] Parker Bauer APRN.[employer] SE[employer] Work Phone: [facility] 03-04-2023 12:39-0400 Body weight 99.79 kg Parker Bauer APRN.[employer] SE[employer] Work Phone: [facility] 03-04-2023 12:39-0400 Diastolic blood pressure 82 mm[Hg] Parker Bauer APRN.[employer] SE[employer] Work Phone: [facility] 03-04-2023 12:39-0400 Heart rate 88 /min Parker Bauer APRN.[employer] SE[employer] Work Phone: [facility] 03-04-2023 12:39-0400 Respiratory rate 16 /min Parker Bauer [employer] Work Phone: [facility] 03-04-2023 12:39-0400 SaO2% (BldA) [Mass fraction] 98 % Parker Bauer [employer] Work Phone: [facility] 03-04-2023 12:39-0400 Systolic blood pressure 120 mm[Hg] Parker Bauer [employer] Work Phone: [facility] 07-11-2022 12:26-0400 Body temperature 98.4 [degF] Ivonnepenelope Cristina [employer]IVER.[employer] Work Phone: [facility] 07-11-2022 12:26-0400 Body weight 100.88 kg Ivonne Cristina [employer] Work Phone: [facility] 07-11-2022 12:26-0400 Diastolic blood pressure 70 mm[Hg] Ivonnepenelope Cristina [employer]IVER.[employer] Work Phone: [facility] 07-11-2022 12:26-0400 Heart rate 76 /min Ivonne Cristina [employer] Work Phone: [facility] 07-11-2022 12:26-0400 Respiratory rate 18 /min Ivonne Rey [employer]IVER.[employer] SE[employer] Work Phone: [facility] 07-11-2022 12:26-0400 SaO2% (BldA) [Mass fraction] 97 % Ivonne Cristina [employer] SE[employer] Work Phone: [facility] 07-11-2022 12:26-0400 Systolic blood pressure 118 mm[Hg] Ivonne Cristina [employer] SE[employer] Work Phone: [facility] Encounters Encounter Date Encounter Type Care Provider Facility Start: 07-12-2024 End: 07-12-2024 ambulatory Aicha Jenkins RN [facility]URSE [facility] Start: 07-12-2024 End: 07-12-2024 Follow-up encounter Aicha Jenkins RN [facility]UR[facility] Comment on above: Ear Pain; Follow Up Start: 07-12-2024 End: 07-12-2024 Patient encounter procedure Wilber Castañeda MD Work Phone: [facility] Comment on above: Acute otitis media, bilateral (Primary Dx); Productive cough; Wheezing; SOB (shortness of breath); Intractable nausea and vomiting; Weight loss; Dizziness; Tachycardia Start: 03-29-2023 End: 03-29-2023 Emergency department patient visit ED Alvarez JOSHI [facility] Start: 03-04-2023 End: 03-04-2023 ambulatory CATY Susan OLIVER Facility:[facility] Start: 03-04-2023 End: 03-04-2023 Patient encounter procedure Parker Bauer [employer] SEALER Work Phone: [facility] Comment on above: URI, acute (Primary Dx); ETD (Eustachian tube dysfunction), right Start: 07-11-2022 End: 07-11-2022 ambulatory CATY A MELODY Facility:[facility] Start: 07-11-2022 End: 07-11-2022 Patient encounter procedure Ivonne Cristina [employer] SE[employer] Work Phone: [facility] Comment on above: URI, acute (Primary Dx); Acute otitis media, left Start: 08-04-2019 End: 09-20-2019 Patient requested procedure Aicha Jenkins RN [facility] Plan of Treatment Date Care Activity Detail Author Start: 12-19-2029 Urine microalbumin profile [facility] Start: 05-15-2024 Covid-19 Vaccine ( season) Covid-19 Vaccine ( season) [facility] Start: 05-15-2024 Influenza vaccination Influenza Vacc ine (#1) [facility] Start: 05-15-2023 Influenza vaccination INFLUENZA (Sea son Ended) [facility] Start: 09-14-2022 DEPRESSION ASSESSMENT DEPRESSION ASS ESSMENT [facility] Start: 05-15-2022 Influenza vaccination INFLUENZA (#1) [facility] Start: 09-14-2021 DEPRESSION ASSESSMENT DEPRESSION ASS ESSMENT [facility] Start: 02-06-2021 CHLAMYDIA SCREENING (18-24) CHLAMYDIA SCREENING (18-24) [facility] Start: 02-06-2021 GC (GONORRHEA) SCREE BRANDI (18-24) GC (GONORRHEA) SCREENING (18-24) [facility] Start: 2020 PAP TESTING PAP TESTING [facility] Start: 2020 Screening for malign ant neoplasm of cervix Cervical Cancer Screening [facility] Start: 2017 Anxiety Screening Anxiety Screening [facility] Start: 2017 Depression Screening Depression Scre ening [facility] Start: 04-30-2016 HPV Vaccine (2 - 3-d ose series) HPV Vaccine (2 - 3-dose series) [facility] Start: 2013 PEDS TO ADULT TRANSI TION ANNUAL ASSESSMENT PEDS TO ADULT TRANSITION ANNUAL ASSESSMENT [facility] Start: 2011 PEDS TO ADULT TRANSI TION INITIAL DISCUSSION PEDS TO ADULT TRANSITION INITIAL DISCUSSION [facility] Start: 2010 HPV VACCINE (1 - 2-d ose series) HPV VACCINE (1 - 2-dose series) [facility] Start: 2009 MENINGOCOCCAL B: Con tie loader based on risk (1 of 2 - Risk Bexsero 2-dose series) MENINGOCOCCAL B: Consider based on risk (1 of 2 - Risk Bexsero 2-dose series) [facility] Start: 2008 HPV VACCINE (1 - 2-d ose series) HPV VACCINE (1 - 2-dose series) [facility] Start: 2005 PNEUMOCOCCAL (1 - PCV) PNEUMOCOCCAL (1 - PCV) [facility] Start: 2005 Pneumococcal vaccination Pneum ococcal Vaccine (1 of 2 - PCV) [facility] Start: 1999 COVID-19 VACCINE (#1) COVID-19 VACCI NE (#1) [facility] Start: 1999 HEPATITIS B (1 of 3 - 3-dose series) HEPATITIS B (1 of 3 - 3-dose series) [facility] Immunizations Immunization Date Immunization Notes Care Provider Aidee cervantes 12-20-2019 tetanus toxoid, redu alison diphtheria toxoid, and acellular pertussis vaccine, adsorbed Ivonne Cristina APRN.[employer] SEAL[employer] Work Phone: [facility] 05-28-2012 influenza virus vacc ine, unspecified formulation Aicha Jenkins RN [facility] Payers Date Payer Category Payer Medicaid [id number] 2019 Medicaid [id number] 2019 Medicaid [id number] 2000 Unknown [id number] Social History Date Type Detail Facility Start: 07-11-2022 End: 07-12-2024 Tobacco smoking status NHIS Smokes tobacco daily [facility] History of tobacco use Cigarette Smoker C [facility] Start: 08-19-2020 End: 07-11-2022 Cigarettes smoked current (pack per day) - Reported 0.5 [facility] Work Phone: Start: 07-11-2022 End: 07-12-2024 Tobacco use and exposure Smokeless tobacco non-user [facility] Start: 07-11-2022 End: 07-12-2024 Alcohol intake Ex-drinker (finding) [facility] Start: 08-04-2019 History SDOH Alcohol Frequency 3 [facility] Start: 08-04-2019 History SDOH Financial 5 [facility] Start: 08-04-2019 History SDOH Food Worry 1 [facility] Start: 08-04-2019 History SDOH Transpo rt Non-Med 2 [facility] Start: 08-04-2019 Education 10 [facility] Start: 2000 Sex Assigned At Not on file [facility] Start: 07-01-2022 End: 07-11-2022 Exposure to SARS-CoV-2 (event) Not sure [facility] Work Phone: Start: 08-04-2019 End: 08-19-2020 Alcohol Use Disorder Identification Test - Consumption [AUDIT-C] [facility] Work Phone: How often to you hav e a drink containing alcohol? 2-4 times a month [facility] Work Phone: Average Number of Drinks Not on file [facility] (I/We) worried wheguillermina er (my/our) food would run out before (I/we) got money to buy more. Never true [facility] Clinical Notes 08-04-2019 to 07-12-2024 Wilber Castañeda MD - 07/12/2024 9:52 AM EDTTelephone Encounter - Aicha Jenkins RN - 07/12/2024 7:16 AM EDTTelephone Encounter - Aicha Jenkins RN - 07/12/2024 7:16 AM EDT Note Date & Type Note Facility 07-12-2024 History of Presen t illness Narrative Chief Complaint Patient presents with: Ear Problem: Currently on ATB for ear infection Shortness of Breath Vomiting HPI Dequan Mazariegos is a 24 year old female who presents here today for new limited evaluation of above complaints. Patient complaining today of bilateral ear pain which started 2 weeks ago with muffled hearing bilaterally and right ear drainage with yellow fluid. Evaluated at [facility] ED about 5 days ago and was prescribed Augmentin which she has been compliant with. Records not available today. Also complaining of nausea with vomiting all day which started 1 week ago. Reports that she weighed 240 lbs at the ER 5 days ago and is down 40 lbs today. Admits to low grade fever last night of 100.3 with chills. Has had tmax of 101. Also complaining of productive cough with green sputum, SOB and wheezing. Has felt dizzy and fell in the shower the other day. Denies headache, sore throat, swollen glands, history of asthma or COPD. Past medical history, appointments, medications, allergies reviewed. Previous Medical History PAST MEDICAL HISTORY Diagnosis Date Complication of anesthesia agitated and violent coming out of general anesthesia Depression with anxiety fracture age 1 right arm- jumping on couch Previous Surgical History PAST SURGICAL HISTORY Procedure Laterality Date APPENDECTOMY MIRENA IUD 04/24/2020 placed without incident TONSILLECTOMY AND ADENOIDECTOMY HX Family History FAMILY HISTORY Problem Relation Age of Onset Cancer Mother lung cancer Cancer Father No Known Problems Sister No Known Problems Brother Heart Maternal Grandmother Cancer Maternal Grandfather No Known Problems Sister No Known Problems Sister No Known Problems Brother Patient Allergies ALLERGIES Allergen Reactions Ibuprofen Intolerance Patient states the brown coating on the pill makes her vomit. Morphine Hives Current Medications Current Outpatient Medications on File Prior to Visit Medication Sig amoxicillin-clavulanate potassium (AUGMENTIN) 875-125 mg per tablet Take 1 tablet by mouth two times a day. Started 5 days ago still has 5 days worth left levonorgestrel (MIRENA) 20 mcg/24 hours (5 yrs) 52 mg IUD 1 Each by INTRAUTERINE route as directed. fluticasone (FLONASE) 50 mcg/actuation nasal spray Use 2 Sprays in each nostril once daily. Rinse mouth after use. No current facility-administered medications on file prior to visit. Social History Social History Tobacco Use Smoking status: Every Day Current packs/day: 0.50 Average packs/day: 0.5 packs/day for 6.0 years (3.0 ttl pk-yrs) Types: Cigarettes Smokeless tobacco: Never Vaping Use Vaping status: Former Substance Use Topics Alcohol use: Not Currently Drug use: Yes Types: Marijuana Review of Symptoms REVIEW OF SYSTEMS See HPI EXAM: BP 124/84 Pulse 118 Temp 36.2 C (97.2 F) Resp 18 Wt 90.6 kg (199 lb 12.8 oz) LMP 05/21/2019 (Within Days) SpO2 98% BMI 31.77 kg/m General Appearance: Ill appearing, tearful, non toxic. . Skin: Skin color, texture, turgor normal, no suspicious rashes or lesions. Head: Normocephalic, no masses, lesions, tenderness or abnormalities. Eyes: Anicteric sclera. Pupils are equally round and reactive to light. Extraocular movements are intact. . Ears: Positive findings: TMs erythematous and bulging bilaterally with purulent effusion. Nose/Sinuses: Nares normal, septum midline, mucosa normal, no drainage or sinus tenderness. Oropharynx: Lips, mucosa, and tongue normal, teeth and gums normal, oropharynx normal. Neck: Supple, no adenopathy; thyroid symmetric, normal size, no bruits. Lungs: coarse breath sounds bilaterally with moderate wheezing. No rales. Good air entry. Heart: Negative findings: no murmurs, clicks, or gallops, Positive findings: tachycardia. Health Maintenance List Pneumococcal Vaccine(1 of 2 - PCV) Never done HPV Vaccine(2 - 3-dose series) due on 04/30/2016 Depression Screening Never done Anxiety Screening Never done Cervical Cancer Screening Never done Influenza Vaccine(1) due on 05/15/2024 Covid-19 Vaccine( season) Never done DTaP,Tdap,Td Vaccine(8 - Td or Tdap) due on 12/19/2029 Hepatitis B Vaccine Completed Hepatitis C Screening Completed HIV Screening Completed ASSESSMENT/PLAN: 1. Acute otitis media, bilateral - ICD9: 382.9, ICD10: H66.93 (primary diagnosis) Patient with persistent AOM despite reported treatment with Augmentin x 5 days. With worsening cough, SOB, wheezing, intractable nausea and vomiting plus signs of dehydration I am referring her back to the ER for IV fluids, STAT labs and chest imaging. Patient agreeable. Refusing EMS. Sister will drive her directly there. Red flags for re-assessment reviewed with patient in detail. Report sent electronically via ER Passport. 2. Productive cough - ICD9: 786.2, ICD10: R05.8 See above. 3. Wheezing - ICD9: 786.07, ICD10: R06.2 See above. 4. SOB (shortness of breath) - ICD9: 786.05, ICD10: R06.02 See above. 5. Intractable nausea and vomiting - ICD9: 536.2, ICD10: R11.2 See above. 6. Weight loss - ICD9: 783.21, ICD10: R63.4 See above. 7. Dizziness - ICD9: 780.4, ICD10: R42 See above. 8. Tachycardia - ICD9: 785.0, ICD10: R00.0 See above. Wilber Castañeda MD documented in this encounter [facility] 07-12-2024 Telephone encounter Note Reason: Ear infection follow up Outcome: 4 hour recommendation. Care advice given. Patient conferenced to the appointment center for scheduling. Recommended ENT appointment, or PCP if unable to be scheduled in the recommended time frame. Reason for Disposition Walking is very unsteady or feels very dizzy Answer Assessment - Initial Assessment Questions 1. ANTIBIOTIC: Augmentin 2. ONSET: 07/07/2024 3. LOCATION: both ears 4. PAIN: How bad is the pain? (Scale 0-10; none, mild, moderate or severe) 7/10 left ear and ringing Right ear clogged, no pain. Right ear is leaking-yellow fluid 6. DISCHARGE: see above 7. OTHER SYMPTOMS: congested, coughing 8. : Denies . First day of LMP: 07/04/2024 Protocols used: Ear - Otitis Media Follow-up [id number] 07-12-2024 Miscellaneous Notes Reason: Ear infection follow up Outcome: 4 hour recommendation. Care advice given. Patient conferenced to the appointment center for scheduling. Recommended ENT appointment, or PCP if unable to be scheduled in the recommended time frame. Reason for Disposition Walking is very unsteady or feels very dizzy Answer Assessment - Initial Assessment Questions 1. ANTIBIOTIC: Augmentin 2. ONSET: 07/07/2024 3. LOCATION: both ears 4. PAIN: How bad is the pain? (Scale 0-10; none, mild, moderate or severe) 7/10 left ear and ringing Right ear clogged, no pain. Right ear is leaking-yellow fluid 6. DISCHARGE: see above 7. OTHER SYMPTOMS: congested, coughing 8. : Denies . First day of LMP: 07/04/2024 Protocols used: Ear - Otitis Media Follow-up [id number] documented in this encounter [facility] 03-04-2023 Note HNO ID: [id number] Author: Parker Bauer APRN.CAN SEALER Service: ? Author Type: Nurse Practitioner Type: [...] AMOXICILLIN 875 MG-POTASSIUM CLAVULANATE 125 MG TABLET Parker Bauer APRN.CAN SEALER [facility] 03-04-2023 History of Presen t illness Narrative [...] AMOXICILLIN 875 MG-POTASSIUM CLAVULANATE 125 MG TABLET Parker Bauer APRN.CAN SEALER documented in this encounter [facility] 07-11-2022 Note HNO ID: [id number] Author: Ivonne Cristina APRN.CAN SEALER Service: ? Author Type: Nurse Practitioner Type: Progress Notes Filed: 07/11/2022 12:56 PM Note Text: This note was created using Feedtraceriter. Subjective Dequan Mazariegos is a 22 year [...] history is provided by the patient. No high school foreign language teacher was used. Cough This is a new [...] Chest: Chest w (more content not included)... [facility] 07-11-2022 History of Presen t illness Narrative This note was created using Feedtraceriter. Subjective Dequan Mazariegos is a 22 year [...] history is provided by the patient. No high school foreign language teacher was used. Cough This is a new [...] or sooner if worsening of symptoms Declines COVID Declines obtaining CXR as she is accompanied [...] 3-5 days if symptoms persist or worsen. Ivonne Cristina APRN.ENRIQUE documented in this encounter [facility] 08-04-2019 History of Past i llness Narrative Problem Noted Date Resolved Date Nausea and vomiting in 08/04/2019 10/21/2019 Overview: 08/04/2019 Rx's for Doxylamine, Vitamin B6 and phenergan given as pt reports inability to tolerate food. Keeping down Gatorade. Will check electrolytes. SW 08/04/2019Patient is complaining of nausea and vomiting in . Dietary considerations discussed . Advised patient to call/come in if she is unable to keep any food or fluids down in a 24-hour period.TKRN Patient request for diagnostic testing 9 09/20/2019 Overview: 08/04/2019Patient desires nuchal ultrasound. TKRN documented as of this encounter (statuses as of 07/11/2022) [facility] History of Past illness Narrative* Problem Noted Date Resolved Date Nausea and vomiting in 08/04/2019 10/21/2019 Overview: 08/04/2019 Rx's for Doxylamine, Vitamin B6 and phenergan given as pt reports inability to tolerate food. Keeping down Gatorade. Will check electrolytes. SW 08/04/2019Patient is complaining of nausea and vomiting in . Dietary considerations discussed . Advised patient to call/come in if she is unable to keep any food or fluids down in a 24-hour period.TKRN Patient request for diagnostic testing 9 09/20/2019 Overview: 08/04/2019Patient desires nuchal ultrasound. TKRN documented as of this encounter (statuses as of 03/04/2023) [facility] URI, acute- Primary Acute upper respiratory infections of unspecified site Acute otitis media, left Unspecified otitis media [facility] URI, acute- Primary Acute upper respiratory infections of unspecified site ETD (Eustachian tube dysfunction), right [facility] Acute otitis media, bilateral- Primary Unspecified otitis media Productive cough Cough Wheezing SOB (shortness of breath) Shortness of breath Intractable nausea and vomiting Persistent vomiting Weight loss Loss of weight Dizziness Dizziness and giddiness Tachycardia Tachycardia, unspecified documented in this encounter [facility] Summary Purpose Family History No Family [...] or prosecute any alcohol or drug abuse patient.[facility] the event this information is protected by the Federal Confidentiality of Alcohol and Drug Abuse Patient Records regulations: The Federal rules restrict any use of the information to criminally investigate or prosecute any alcohol or drug abuse patient.[facility] the event this information is protected by the Federal Confidentiality of Alcohol and Drug Abuse Patient Records regulations: The Federal rules restrict any use of the information to criminally investigate or prosecute any alcohol or drug abuse patient.[facility] the event this information is protected by the Federal Confidentiality of Alcohol and Drug Abuse Patient Records regulations: The Federal rules restrict any use of the information to criminally investigate or prosecute any alcohol or drug abuse patient.[facility] Reason for Visit (unrecogniz ed section and content) Reason Comments Cough Baltazar, nasal congestion x1 wk. Reason Comments Ear Pain Bilateral, with sore throat, congestion, headache, difficulty breathing, loss of voice started yesterday Reason Comments Ear Pain Follow Up Reason Comments Ear Problem Currently on ATB for ear infection Shortness of Breath Vomiting Care Teams (unrecognized sec tion and content) Dry Roller Relationship Specialty Start Date End Date Caty Oliver DO PCP - General Family Medicine 10/10/15 Dry Roller Relationship Specialty Start Date End Date Caty Oliver DO PCP - General Family Medicine 10/10/15 Dry Roller Relationship Specialty Start Date End Date Caty Oliver DO PCP - General Family Medicine 10/10/15 Dry Roller Relationship Specialty Start Date End Date Caty Oliver DO PCP - General Family Medicine 10/10/15 INFORMATION SOURCE (unrecogn ized section and content) DATE CREATED AUTHOR 03/05/2023 [facility] DATE CREATED AUTHOR AUTHOR'S ORGANIZ ATION 04/16/2023 [facility] FOR RECORDS PERTAINING TO PATIENTS WHO ARE [...] BE BASED ON THE PRIMARY CLINICAL RECORDS. [facility], [facility]. provides no warranty or guarantee of the accuracy or completeness of information in this document.
== END 2024-07-12 14:20 | disposition home or self-care (01) ==
PROVIDERS: Emergency Provider Emergency Medicine; Visit Provider Emergency Medicine
DX: J06.9 Acute upper respiratory infection, unspecified (principal); F31.9 Bipolar disorder, unspecified; H60.93 Unspecified otitis externa, bilateral; F17.290 Nicotine dependence, other tobacco product, uncomplicated
CPT/HCPCS: 87631; 94640; 99284

== ENCOUNTER 2024-11-02 18:00 | Emergency (ER) | payer MEDICAID, SELFPAY ==
[2024-11-02 18:00] VITALS: BP 150/100; PULSE 79; RESP 18; TEMP 36.8; O2SAT 100; BMI 34.2
--- NOTE | 2024-11-02 19:22 | EX.ED.DYSGE1 ---
HPI History of Present Illness Chief Complaint: Dental Narrative Narrative: Patient is a 24-year-old female with past medical history bipolar disorder who presented to the emergency department chief complaint of abdominal pain. Patient states that she called her dentist and they noted that could not get her in until December. She states that she is on Augmentin but she tried to tell the dentist that clindamycin works for her better. She states that she is in severe pain therefore she came here for the valuation management. PFSH PFSH Medical History Bipolar disorder Home Medications ?Medication ?Instructions ?Recorded ?Last Taken ?Type hydrocodone-acetaminophen 5-325mg 1 tab PO Q6H PRN PRN Pain 3 days 05/15/23 Unknown Rx 5mg-325mg #12 TABLETS omeprazole 20 mg capsule,delayed 20 mg PO DAILY #30 CAPSULES 11/17/23 Unknown Rx release amoxicillin 875 mg-potassium 875 mg PO Q12H #20 TABLETS 07/07/24 Unknown Rx clavulanate 125 mg tablet ondansetron 4 mg disintegrating 4 mg PO Q8H PRN PRN Nausea #10 tabs 07/12/24 Unknown Rx tablet clindamycin HCl 300 mg capsule 300 mg PO TID 5 days #15 caps 11/02/24 Unknown Rx ondansetron 4 mg disintegrating 4 mg PO Q6H PRN nausea and 11/02/24 Unknown Rx tablet vomiting #20 tabs oxycodone-acetaminophen 5 mg-325 1 tab PO Q6H PRN pain 2 days #8 11/02/24 Unknown Rx mg tablet (Percocet) tabs Allergy/AdvReac Type Severity Reaction Status Date / Time morphine Allergy Rash Verified 11/02/24 18:00 ibuprofen AdvReac Nausea/Vom/ Verified 11/02/24 18:00 Diarrhea Surgical History Hx of tonsillectomy Hx of appendectomy Social History Smoking Status: Current every day smoker tobacco type: e-cigarettes ROS ROS ED ROS Narrative Constitutional: Denies any headaches, lightness, dizziness Eyes eyes, nose, throat: Complains of dental pain as noted above denies change in vision double vision blurry vision denies any difficulty swallowing Cardiovascular: Denies chest pain or palpitations Neurological: Denies numbness, weakness, tingling Skin: Denies any rashes or lesions EXAM Physical Exam Narrative Exam Narrative: General: Patient sitting in chair in the hallway did not appear to be in acute distress Head: Atraumatic, normocephalic Eyes, ears, nose, throat: Patient does have broken tooth noted in the back left upper side. No concern for abscess. Tenderness to palpation along this region. No sublingual swelling Neck: Soft, supple, trachea midline, no concern for Justen's angina Cardiovascular: Regular rate and rhythm Neurological: Patient following commands knew that she was at [facility] years 2024 Skin: Warm, dry, intact no rashes or lesions noted Const Vital Signs: 11/02/24 18:00 Temperature 98.2 F Temperature Source Temporal Pulse Rate 79 Respiratory Rate 18 Blood Pressure 150/100 H Blood Pressure Mean 116 Pulse Ox 100 Oxygen Delivery Method Room Air MDM MDM MDM Narrative Medical decision making narrative: Patient is a 24-year-old female who presents to the emergency department chief complaint of dental pain. On the differential diagnose includes but not limited to cracked tooth, cavity, periapical abscess although once again there is no concern for this on exam. Patient be given her first dose of clindamycin here in the emergency department and then will give prescription for this. She will be given a prescription for Percocet and Zofran for severe pain and she was advised to rotate Tylenol and ibuprofen [id number] for mild to moderate pain. Patient be given a dental referral list and will be advised to call around because she needs to get into taking care of this. She is agreeable this plan all question concerns answered she is discharged home in stable condition with instructions to return for worsening symptoms or concerns Discharge Plan Triage Chief Complaint: Dental ED Provider: Brad Epstein Dx/Rx/DC Orders Clinical Impression: Pain, dental Prescriptions: New clindamycin HCl 300 mg capsule 300 mg PO TID 5 Days Qty: 15 0RF oxycodone-acetaminophen [Percocet] 5-325 mg tablet 1 tab PO Q6H PRN (Reason: pain) 2 Days Qty: 8 0RF ondansetron 4 mg tablet,disintegrating 4 mg PO Q6H PRN (Reason: nausea and vomiting) Qty: 20 0RF No Action hydrocodone-acetaminophen [hydrocodone-acetaminophen] 5-325 mg tablet 1 tab PO Q6H PRN PRN (Reason: Pain) 3 Days Qty: 12 0RF omeprazole 20 mg capsule,delayed release(DR/EC) 20 mg PO DAILY Qty: 30 0RF amoxicillin-pot clavulanate 875-125 mg tablet 875 mg PO Q12H Qty: 20 0RF ondansetron 4 mg tablet,disintegrating 4 mg PO Q8H PRN PRN (Reason: Nausea) Qty: 10 0RF Primary Care Provider: Care Physician,No Primary Referrals: Care Physician,No Primary [Primary Care Provider] - Celeste Garcia Kim, FLIGHT ATTENDANT/INFLIGHT MANAGER-C [[facility]] - Activity Restrictions/Additional Instructions: Discontinue the Augmentin. Take the clindamycin as prescribed. Use the Percocet and Zofran for severe pain do not operate anything under the influence of this. Use Tylenol and ibuprofen rotate this [id number] for mild to moderate pain we do so you can take something every 3 hours. Max dose of Tylenol is 4000 mg and the max dose of ibuprofen is 3200 mg. Return with worsening symptoms and concerns. Follow-up with a dentist Print Language: Sami Disposition Disposition: Home, Self Care
[2024-11-02] MEDS: Clindamycin HCl 150 MG Capsule 300 MG PO (19:50)
[2024-11-02] MEDS: HYDROcodone Bitartrate/Apap 5/325 Tablet PO (19:51)
[2024-11-02] MEDS: Ondansetron ODT 4 MG Tablet PO (19:51)
--- NOTE | 2024-11-02 21:41 | CM.ED ---
Social Work SW met with patient who stated she has an appointment for an extraction but was unable to get to see the dentist until December. SW gave patient resource list for oral surgeons to contact. No further needs identified. Denita Pond, FIBER OPTIC TECHNICIAN, BOATHOUSE KEEPER
== END 2024-11-02 20:09 | disposition home or self-care (01) ==
LOC: ED 19:40
PROVIDERS: Emergency Provider Emergency Medicine; Visit Provider Emergency Medicine
DX: S02.5XXA Fracture of tooth (traumatic), initial encounter for closed fracture (principal); F31.9 Bipolar disorder, unspecified; X58.XXXA Exposure to other specified factors, initial encounter; F17.290 Nicotine dependence, other tobacco product, uncomplicated; Z79.899 Other long term (current) drug therapy
CPT/HCPCS: 99283